=== PATIENT | female | born 1940 | race Caucasian/White ===

== ENCOUNTER 2018-03-16 16:43 | Observation (INO) ==
[2018-03-16 16:50] VITALS: BMI 29.2
[2018-03-16] MEDS ORDERED: NS 1000 ML 1,000 ML ONE ×2 (16:59→18:17)
[2018-03-16] MEDS ORDERED: NS 1000 ML 1,000 ML IV ONE (17:18)
--- NOTE | 2018-03-16 17:22 | DR.EXTPAIN ---
HPI Time seen Time Seen by Provider: 03/16/18 17:10 PCP Primary Care Physician: timothy Complaint/Symptoms Chief Complaint:: patient stated she vomitied about 30 minutes ago and it looked like coffee grounds. family stated it may be blood Source History Provided: Patient Mode of arrival Mode of Arrival: Ambulatory Timing Onset of Chief Complaint: 03/15/18 PMH PMH Past Medical History: Yes Past Medical History: Anxiety, Arthritis, Dyslipidemia and Hypertension Past Surgical History: Yes Surgical History: Bowel Resection, Cholecystectomy, Hysterectomy and Other Family History History of Family Medical Conditions: Yes Family Medical History: Hypertension Social History Does patient currently use any type of tobacco product: No Have you used tobacco products in the last 12 months: No Type of Tobacco Use: None Does any household member use tobacco: No Alcohol Use: None Do you use any recreational Drugs:: No Lives With: Family Lives Where: Home infectious screening In the last 2 months have you had wt loss of >10#?: NO Have you had fever, night sweats or hemotysis?: No Have you traveled outside the country in the last 6 months?: No Isolation: Standard PE Vital Signs Vitals: Temperature 98.4 F Pulse Rate [Brachial] 79 Pulse Rate 137 Respiratory Rate 20 Blood Pressure [Left Arm] 152/89 Blood Pressure [Right Arm] 163/71 Blood Pressure 114/60 O2 Sat by Pulse Oximetry 95 General Limitations: No Limitations General Appearance: Alert and In No Apparent Distress Head Head Exam: Normal Inspection, Atraumatic and Normocephalic Eyes Eye exam: Normal Appearance, PERRL and EOMI ENT ENT Exam: Normal Exam, Normal Oropharynx and Normal External Ear Exam Neck Neck Exam: Normal Inspection and Full ROM Chest Chest Inspection: Normal Inspection and Symmetric Chest Wall Rise Respiratory Respiratory Exam: Normal Lung Sounds Bilat and Accessory Muscle Use Respiratory Exam: Bilateral: Clear to Auscultation Cardiovascular Cardiovascular Exam: Regular Rate and Normal Rhythm Abdominal Exam Abdominal Exam: Normal Inspection, Normal Bowel Sounds and Soft Extremities Extremities Exam: Normal Inspection and Full ROM Upper Extremities Shoulder Exam: Normal Inspection Arm Exam: Normal Inspection and Full ROM Elbow Exam: Normal Inspection and Full ROM Forearm Exam: Normal Inspection and Full ROM Hand Exam: Normal Inspection Neuromotor Exam: Normal Exam Neurosensory Exam: Normal Exam Hand Tendon Exam: Flexor Digitorium Profundus (Location) Lower Extremities Hip/Pelvis Exam: Normal Inspection Upper Leg Exam: Normal Inspection and Full ROM Knee Exam: Normal Inspection Lower Leg Exam: Normal Inspection Ankle Exam: Normal Inspection and Full ROM Foot/Toe Exam: Normal Inspection Neurovascular/Tendon Exam: Normal Capillary Refill Back Back Exam: Normal Inspection and Full ROM Neurological Neurological Exam: Alert, Oriented X3 and CN II-XII Intact Psychiatric Psychiatric Exam: Normal Affect and Normal Mood Skin Skin Exam: Warm, Dry and Intact Type of Lesion: Rash COURSE Treatment Treatment: NS 1 L Consultation Called: 18:30 Consultation Comments: Dr. Zepeda agreed to admit for further evaluation and treatment ROR Labs Reviewed Laboratory Results Reviewed?: Yes Result Diagrams: 03/19/18 05:05 03/19/18 05:05 Laboratory: 03/16/18 17:45 Stool Gram Stain - Final WBC 8.3 X10^3/uL (3.6-10.0) 03/19/18 05:05 RBC 3.57 X10^6/uL (3.5-5.4) 03/19/18 05:05 Hgb 9.7 g/dL (12.0-16.0) L 03/19/18 05:05 Hct 29.1 % (36.0-47.0) L 03/19/18 05:05 MCV 81.7 fL (80.0-100.0) 03/19/18 05:05 MCH 27.1 pg (27.0-34.0) 03/19/18 05:05 MCHC 33.2 g/dL (33.0-35.0) 03/19/18 05:05 RDW 17.3 % (11.6-16.5) H 03/19/18 05:05 Plt Count 277 X10^3/uL (150.0-450.0) 03/19/18 05:05 Plt Count Comment Adequate (ADEQUATE) 03/17/18 05:48 MPV 9.7 fL (7.4-11.0) 03/19/18 05:05 Neut % (Auto) 67.9 % (42.0-75.0) 03/19/18 05:05 Lymph % (Auto) 19.8 % (21.0-51.0) L 03/19/18 05:05 [place] % (Auto) 5.3 % (0.0-13.0) 03/19/18 05:05 Eos % (Auto) 6.3 % (0.9-2.9) H 03/19/18 05:05 Baso % (Auto) 0.7 % (0.2-1.0) 03/19/18 05:05 Neut # (Auto) 5.6 x10^3/uL (2.2-4.8) H 03/19/18 05:05 Lymph # (Auto) 1.6 X10^3/uL (1.3-2.9) 03/19/18 05:05 [place] # (Auto) 0.4 x10^3/uL (0.3-0.8) 03/19/18 05:05 Eos # (Auto) 0.5 x10^3/uL (0.0-0.2) H 03/19/18 05:05 Baso # (Auto) 0.1 X10^3/uL (0.0-0.1) 03/19/18 05:05 Absolute Nucleated RBC 0.0 /100WBC 03/19/18 05:05 Plt Morphology Comment Normal (NORMAL) 03/17/18 05:48 RBC Morphology Abnormal (NORMAL) A 03/17/18 05:48 Hypochromasia 2+ A 03/17/18 05:48 Poikilocytosis Slight A 03/17/18 05:48 Anisocytosis Slight A 03/17/18 05:48 Microcytosis Slight A 03/17/18 05:48 Absolute Retic 0.0627 10^6/uL 03/16/18 17:07 Percent Retic 1.81 % (0.8-2.2) 03/16/18 17:07 Sodium 138 mmol/L (136-145) 03/19/18 05:05 Corrected Sodium 139 mmol/L (136-145) 03/19/18 05:05 Potassium 4.0 mmol/L (3.5-5.1) 03/19/18 05:05 Chloride 103 mmol/L (98-107) 03/19/18 05:05 Carbon Dioxide 26.0 mmol/L (21-32) 03/19/18 05:05 BUN 10 mg/dL (7-18) 03/19/18 05:05 Creatinine 0.47 mg/dL (0.55-1.02) L 03/19/18 05:05 Est GFR (MDRD) Af Amer > 60 (>60) 03/19/18 05:05 Est GFR (MDRD) Non-Af > 60 (>60) 03/19/18 05:05 Glucose 129 mg/dL (65-99) H 03/19/18 05:05 Calcium 8.2 mg/dL (8.5-10.1) L 03/19/18 05:05 Corrected Calcium 8.8 mg/dL (8.5-10.1) 03/19/18 05:05 Iron 14 ug/dL (50-175) L 03/17/18 09:58 TIBC 331 ug/dL (250-450) 03/17/18 05:48 Transferrin 270 mg/dL (202-364) 03/17/18 09:58 Ferritin 19 ng/mL (8-252) 03/17/18 09:58 Total Bilirubin 0.50 mg/dL (0.2-1.0) 03/19/18 05:05 AST 50 Units/L (15-37) H 03/19/18 05:05 ALT 48 Units/L (12-78) 03/19/18 05:05 Alkaline Phosphatase 88 Units/L (46-116) 03/19/18 05:05 Total Protein 7.0 g/dL (6.4-8.2) 03/19/18 05:05 Albumin 3.2 g/dL (3.4-5.0) L 03/19/18 05:05 Globulin 3.8 g/dL (2.5-4.5) 03/19/18 05:05 Albumin/Globulin Ratio 0.8 Ratio (1.1-2.1) L 03/19/18 05:05 Amylase 31 Units/L (25-115) 03/16/18 17:07 Lipase 125 Units/L (73-393) 03/16/18 17:07 Vitamin B12 469 pg/mL (193-986) 03/17/18 09:58 Folate 15.6 ng/mL (>8.6) 03/17/18 09:58 Stool Description Fob 03/16/18 17:37 Stl Occult Blood (IFOB) Negative (NEGATIVE) 03/16/18 17:37 Stool for White Cells Cancelled 03/16/18 17:37 Blood Type O NEGATIVE 03/17/18 09:58 Antibody Screen Negative 03/17/18 09:58 Crossmatch See Detail 03/17/18 09:58 Other Results Comments: Chest: Chronic interstitial lung changes are observed without acute cardiopulmonary disease. A moderate size central sliding hiatal hernia is noted to be present in the retrocardiac region XRAY XRAY Interpreted by: Radiologist Diagnosis Discharge Problem: Azotemia ADDITIONAL NOTES Additional Notes Additional Notes: Patient will be admitted for hydration
[2018-03-16 17:43] LABS: ALANINE AMINOTRANSFERASE 24 Units/L (12-78); ALBUMIN 3.1 g/dL (3.4-5.0); ALKALINE PHOSPHATASE 86 Units/L (46-116); AMYLASE 31 Units/L (25-115); ASPARTATE AMINO TRANSFERASE 19 Units/L (15-37); BLOOD UREA NITROGEN 50 mg/dL (7-18); CALCIUM 8.8 mg/dL (8.5-10.1); CARBON DIOXIDE 27.4 mmol/L (21-32); CHLORIDE 105 mmol/L (98-107); COR CA(FOR HYPOALB) 9.5 mg/dL (8.5-10.1); COR NA(FOR HYPERGLY) 145 mmol/L (136-145); CREATININE 0.78 mg/dL (0.55-1.02); LIPASE 125 Units/L (73-393); SODIUM 141 mmol/L (136-145); eGFR NON BLACK RACES > 60 (>60)
[2018-03-16 17:44] LABS: BASOPHILS # (AUTO) 0.1 X10^3/uL (0.0-0.1); BASOPHILS % (AUTO) 0.7 % (0.2-1.0); EOSINOPHILS # (AUTO) 0.3 x10^3/uL (0.0-0.2); EOSINOPHILS % (AUTO) 2.9 % (0.9-2.9); HEMATOCRIT 27.7 % (36.0-47.0); HEMOGLOBIN 8.8 g/dL (12.0-16.0); LYMPHOCYTES # (AUTO) 1.7 X10^3/uL (1.3-2.9); LYMPHOCYTES % (AUTO) 18.1 % (21.0-51.0); MEAN CORPUSCULAR HEMOGLOBIN 25.3 pg (27.0-34.0); MEAN CORPUSCULAR HGB CONC 31.6 g/dL (33.0-35.0); MEAN PLATELET VOLUME 9.7 fL (7.4-11.0); MONOCYTES # (AUTO) 0.3 x10^3/uL (0.3-0.8); MONOCYTES % (AUTO) 3.8 % (0.0-13.0); NEUTROPHILS # (AUTO) 6.9 x10^3/uL (2.2-4.8); NEUTROPHILS % (AUTO) 74.5 % (42.0-75.0); PLATELET COUNT 438 X10^3/uL (150.0-450.0); RED BLOOD COUNT 3.46 X10^6/uL (3.5-5.4); RED CELL DISTRIBUTION WIDTH 16.9 % (11.6-16.5); RETICULOCYTE % 1.81 % (0.8-2.2); WHITE BLOOD COUNT 9.2 X10^3/uL (3.6-10.0)
[2018-03-16 18:03] LABS: HYPOCHROMASIA SLIGHT; PLATELET MORPHOLOGY COMMENT NORMAL (NORMAL)
--- NOTE | 2018-03-16 18:29 | RAD ---
HISTORY: Tachycardia Study: Single-view chest Comparison: 09/19/2015 Findings: The trachea is midline. The cardiac silhouette is enlarged with a tortuous thoracic aorta. Chronic interstitial lung changes are observed. Density within the retrocardiac region consistent with central sliding hiatal hernia is noted. The bony thorax is unremarkable. IMPRESSION: A moderate size central sliding hiatal hernia is noted to be present in the retrocardiac region. Chronic interstitial lung changes are observed without acute cardiopulmonary disease. Reported By:
[2018-03-16] MEDS ORDERED: PHENERGAN INJ 25 MG IVP ONE (19:22)
[2018-03-16] MEDS ORDERED: PHENERGAN INJ 25 MG ONE (19:24)
[2018-03-16] MEDS ORDERED: ZOFRAN INJ 4 MG VIAL IVP PRN ×2 (19:29→19:50)
[2018-03-16] MEDS ORDERED: PLAQUENIL PO SCH (21:00)
[2018-03-16] MEDS ORDERED: HYDROXYCHLOROQUINE SULFATE 200 MG PO SCH (21:00)
[2018-03-16 21:41] LABS: ALANINE AMINOTRANSFERASE 23 Units/L (12-78); ALBUMIN 2.8 g/dL (3.4-5.0); ALKALINE PHOSPHATASE 73 Units/L (46-116); ASPARTATE AMINO TRANSFERASE 19 Units/L (15-37); BLOOD UREA NITROGEN 52 mg/dL (7-18); CALCIUM 8.4 mg/dL (8.5-10.1); CHLORIDE 109 mmol/L (98-107); COR CA(FOR HYPOALB) 9.4 mg/dL (8.5-10.1); COR NA(FOR HYPERGLY) 145 mmol/L (136-145); CREATININE 0.68 mg/dL (0.55-1.02); SODIUM 144 mmol/L (136-145); TOTAL PROTEIN 6.3 g/dL (6.4-8.2); eGFR NON BLACK RACES > 60 (>60)
[2018-03-16] MEDS ORDERED: VISTARIL PO PRN (21:53)
[2018-03-16] MEDS: ZANTAC PO SCH (21:58)
[2018-03-16] MEDS: TOPROL XL PO SCH (21:58)
[2018-03-16] MEDS: NS 1000 ML 1,000 ML IV SCH (22:34)
[2018-03-16] MEDS: ZOLOFT PO SCH (22:34)
[2018-03-17] MEDS: NS 1000 ML 1,000 ML IV SCH ×4 (04:33→23:28)
[2018-03-17 07:18] LABS: BASOPHILS % (AUTO) 0.7 % (0.2-1.0); EOSINOPHILS # (AUTO) 0.1 x10^3/uL (0.0-0.2); EOSINOPHILS % (AUTO) 1.3 % (0.9-2.9); LYMPHOCYTES # (AUTO) 1.7 X10^3/uL (1.3-2.9); LYMPHOCYTES % (AUTO) 23.7 % (21.0-51.0); MEAN CORPUSCULAR HEMOGLOBIN 25.6 pg (27.0-34.0); MEAN CORPUSCULAR VOLUME 80.1 fL (80.0-100.0); MEAN PLATELET VOLUME 9.7 fL (7.4-11.0); MONOCYTES # (AUTO) 0.6 x10^3/uL (0.3-0.8); MONOCYTES % (AUTO) 7.9 % (0.0-13.0); NEUTROPHILS # (AUTO) 4.7 x10^3/uL (2.2-4.8); NEUTROPHILS % (AUTO) 66.4 % (42.0-75.0); PLATELET COUNT 263 X10^3/uL (150.0-450.0); RED BLOOD COUNT 2.48 X10^6/uL (3.5-5.4); RED CELL DISTRIBUTION WIDTH 16.7 % (11.6-16.5); WHITE BLOOD COUNT 7.1 X10^3/uL (3.6-10.0)
[2018-03-17 08:02] LABS: HEMATOCRIT 19.8 % (36.0-47.0); HEMOGLOBIN 6.4 g/dL (12.0-16.0)
[2018-03-17] MEDS: TOPROL XL PO SCH ×2 (08:44→21:27)
[2018-03-17] MEDS: ZANTAC PO SCH ×2 (08:44→21:26)
[2018-03-17] MEDS: MAG-OX TAB PO SCH (08:45)
[2018-03-17] MEDS: VITAMIN D3 PO SCH (08:45)
[2018-03-17] MEDS ORDERED: MAGNESIUM PO SCH (09:00)
[2018-03-17] MEDS ORDERED: ECOTRIN TAB 325 MG PO SCH (09:00)
[2018-03-17] MEDS ORDERED: CHOLECALCIFEROL 2000 UNIT PO SCH (09:00)
[2018-03-17] MEDS ORDERED: PLAVIX PO SCH (09:00)
[2018-03-17 09:03] LABS: PLATELET MORPHOLOGY COMMENT NORMAL (NORMAL)
[2018-03-17 09:04] LABS: ANISOCYTOSIS SLIGHT; HYPOCHROMASIA 2+; MICROCYTOSIS SLIGHT; POIKILOCYTOSIS SLIGHT
[2018-03-17] MEDS ORDERED: NS 500 ML IV 500 ML IV ONE (09:44)
--- NOTE | 2018-03-17 09:50 | DR.H&P ---
H&P - History & Physical for Day of: H&P Date: 03/16/18 - Chief Complaint Chief Complaint: N/V, WEAKNESS - History of Present Illness History of Present Illness: 77 WF ER ADMISSION AFTER PRESENTING WITH CO INCREASED WEAKNESS AND "GIVING OUT EASILY" PT CO N/V WITH "COFFEE GROUND" EMESIS. PT HAS PMH OF CAD, OA WITH THERMAL MOLDER NSAID USE, LUPUS, HTN AND HX CVA. PT ADMITTED FOR EVALUATION OF ACUTE ILLNESS. - Past Medical History Past Medical History: Hypertension, Dyslipidemia, Anxiety, Arthritis Additional Medical History: Diverticulosis, Muscle Weakness - Past Surgical History Surgical History: Bowel Resection, Cholecystectomy, Hysterectomy, Other Additional Surgical History: Heart Cath, Tubal Ligation, Breast Biopsies, Lumpectomy - Family History Family Medical History: Hypertension - Social History Does patient currently use any type of tobacco product: No Have you used tobacco products in the last 12 months: No Type of Tobacco Use: None Does any household member use tobacco: No Alcohol Use: None Drug Use: None - Medications Home Medications: codeine Allergy (Verified 03/16/18 16:45) levofloxacin [From Levaquin] Allergy (Verified 03/16/18 16:45) Sulfa (Sulfonamide Antibiotics) [SULFA] Allergy (Verified 03/16/18 16:45) CONTINUE taking the following medications metoprolol succinate 37.5 mg PO BID 03/16/18 [History] - Review of Systems Constitutional: Weakness Eyes: No Symptoms Reported ENT: No Symptoms Reported Respiratory: Shortness of Breath Cardiovascular: Palpitations Gastrointestinal: Nausea, Vomiting Genitourinary: No Symptoms Reported Musculoskeletal: No Symptoms Reported Skin: No Symptoms Reported Neurological: Weakness - Physical Exam Vital Signs: Temperature 98.5 F Pulse Rate [Brachial] 105 Pulse Rate 137 Respiratory Rate 22 Blood Pressure [Left Arm] 152/89 Blood Pressure [Right Arm] 151/80 Blood Pressure 114/60 O2 Sat by Pulse Oximetry 98 Oriented: Normal Eyes: Normal Ear: Normal Nose: Normal Throat: Normal Respiratory: RLL Diminished, LLL Diminished Cardiovascular: Murmur : Normal Auscultation: Bowel Sounds: Normal Palpation: Normal Tenderness: Normal Skin: Decreased Turgur, Other (GENERALIZED PALLOR) Musculoskeletal: Right, Left, Knee, Back:Lumbar, Tender Psychiatric: Anxiety Affect: Angry Speech Pattern: Clear, Appropriate - Assessment/Plan (1) Nausea & vomiting Status: Acute Plan: ADMIT, NAUSEA CONTROL, NPO. GENTLE IV HYDRATION, REPEAT AM LABS. IV PROTONIX, GASTRO AND OCCULT STOOL (2) Upper GI bleed Status: Acute (3) Weakness Status: Acute (4) Essential hypertension Status: Chronic (5) Hypothyroidism Status: Chronic (6) History of CVA (cerebrovascular accident) Status: Chronic - Allergies Allergies/Adverse Reactions: Allergies Allergy/AdvReac Type Severity Reaction Status Date / Time codeine Allergy Verified 03/16/18 16:45 levofloxacin [From Levaquin] Allergy Verified 03/16/18 16:45 Sulfa (Sulfonamide Allergy Verified 03/16/18 16:45 Antibiotics) [SULFA]
[2018-03-17] MEDS: PROTONIX INJ 40 MG VIAL IVP SCH ×2 (11:14→23:07)
[2018-03-17] MEDS: ASPIRIN EC 81 MG PO SCH (11:14)
[2018-03-17] MEDS ORDERED: LASIX IVP SCH (13:00)
[2018-03-17] MEDS: SYNTHROID 25 mcg TAB PO SCH (16:31)
[2018-03-17] MEDS ORDERED: TYLENOL 325 MG TAB PO ONE ×2 (16:56→17:45)
[2018-03-17] MEDS ORDERED: BENADRYL INJ 50 MG VIAL IVP ONE (16:56)
[2018-03-17] MEDS ORDERED: BENADRYL INJ 50 MG VIAL ONE (17:44)
[2018-03-17] MEDS: ZOLOFT PO SCH (21:26)
[2018-03-18] MEDS: NS 1000 ML 1,000 ML IV SCH ×3 (05:22→20:39)
[2018-03-18 08:16] LABS: BASOPHILS # (AUTO) 0.1 X10^3/uL (0.0-0.1); BASOPHILS % (AUTO) 0.8 % (0.2-1.0); EOSINOPHILS # (AUTO) 0.6 x10^3/uL (0.0-0.2); EOSINOPHILS % (AUTO) 7.4 % (0.9-2.9); HEMATOCRIT 29.5 % (36.0-47.0); HEMOGLOBIN 9.7 g/dL (12.0-16.0); LYMPHOCYTES # (AUTO) 2.5 X10^3/uL (1.3-2.9); LYMPHOCYTES % (AUTO) 29.3 % (21.0-51.0); MEAN CORPUSCULAR HEMOGLOBIN 26.9 pg (27.0-34.0); MEAN CORPUSCULAR HGB CONC 32.9 g/dL (33.0-35.0); MEAN CORPUSCULAR VOLUME 81.9 fL (80.0-100.0); MEAN PLATELET VOLUME 9.3 fL (7.4-11.0); MONOCYTES # (AUTO) 0.5 x10^3/uL (0.3-0.8); MONOCYTES % (AUTO) 6.1 % (0.0-13.0); NEUTROPHILS # (AUTO) 4.7 x10^3/uL (2.2-4.8); NEUTROPHILS % (AUTO) 56.4 % (42.0-75.0); PLATELET COUNT 289 X10^3/uL (150.0-450.0); WHITE BLOOD COUNT 8.4 X10^3/uL (3.6-10.0)
[2018-03-18 08:28] LABS: ALANINE AMINOTRANSFERASE 32 Units/L (12-78); ALBUMIN 3.4 g/dL (3.4-5.0); ALKALINE PHOSPHATASE 79 Units/L (46-116); ASPARTATE AMINO TRANSFERASE 40 Units/L (15-37); BLOOD UREA NITROGEN 14 mg/dL (7-18); CALCIUM 8.2 mg/dL (8.5-10.1); CARBON DIOXIDE 26.3 mmol/L (21-32); CHLORIDE 106 mmol/L (98-107); COR NA(FOR HYPERGLY) 141 mmol/L (136-145); SODIUM 141 mmol/L (136-145); TOTAL PROTEIN 7.1 g/dL (6.4-8.2); eGFR NON BLACK RACES > 60 (>60)
[2018-03-18] MEDS: TOPROL XL PO SCH ×2 (08:44→20:38)
[2018-03-18] MEDS: VITAMIN D3 PO SCH (08:44)
[2018-03-18] MEDS: ASPIRIN EC 81 MG PO SCH (08:45)
[2018-03-18] MEDS: MAG-OX TAB PO SCH (08:45)
[2018-03-18] MEDS: PROTONIX INJ 40 MG VIAL IVP SCH ×2 (08:45→20:38)
[2018-03-18] MEDS: ZANTAC PO SCH ×2 (08:45→20:39)
[2018-03-18] MEDS ORDERED: NS 100 ML IV 100 ML with VENOFER 400 MG IV NR ×2 (13:00)
[2018-03-18] MEDS: SYNTHROID 25 mcg TAB PO SCH (16:13)
[2018-03-18] MEDS: TYLENOL 325 MG TAB PO PRN (16:33)
[2018-03-18] MEDS: ZOLOFT PO SCH (20:39)
[2018-03-19] MEDS: NS 1000 ML 1,000 ML IV SCH ×4 (05:36→21:23)
[2018-03-19 05:57] LABS: BASOPHILS # (AUTO) 0.1 X10^3/uL (0.0-0.1); BASOPHILS % (AUTO) 0.7 % (0.2-1.0); EOSINOPHILS # (AUTO) 0.5 x10^3/uL (0.0-0.2); EOSINOPHILS % (AUTO) 6.3 % (0.9-2.9); HEMATOCRIT 29.1 % (36.0-47.0); HEMOGLOBIN 9.7 g/dL (12.0-16.0); LYMPHOCYTES # (AUTO) 1.6 X10^3/uL (1.3-2.9); LYMPHOCYTES % (AUTO) 19.8 % (21.0-51.0); MEAN CORPUSCULAR HEMOGLOBIN 27.1 pg (27.0-34.0); MEAN CORPUSCULAR HGB CONC 33.2 g/dL (33.0-35.0); MEAN CORPUSCULAR VOLUME 81.7 fL (80.0-100.0); MEAN PLATELET VOLUME 9.7 fL (7.4-11.0); MONOCYTES # (AUTO) 0.4 x10^3/uL (0.3-0.8); MONOCYTES % (AUTO) 5.3 % (0.0-13.0); NEUTROPHILS # (AUTO) 5.6 x10^3/uL (2.2-4.8); NEUTROPHILS % (AUTO) 67.9 % (42.0-75.0); PLATELET COUNT 277 X10^3/uL (150.0-450.0); RED BLOOD COUNT 3.57 X10^6/uL (3.5-5.4); RED CELL DISTRIBUTION WIDTH 17.3 % (11.6-16.5); WHITE BLOOD COUNT 8.3 X10^3/uL (3.6-10.0)
[2018-03-19 06:17] LABS: ALANINE AMINOTRANSFERASE 48 Units/L (12-78); ALBUMIN 3.2 g/dL (3.4-5.0); ALKALINE PHOSPHATASE 88 Units/L (46-116); ASPARTATE AMINO TRANSFERASE 50 Units/L (15-37); BLOOD UREA NITROGEN 10 mg/dL (7-18); CALCIUM 8.2 mg/dL (8.5-10.1); CHLORIDE 103 mmol/L (98-107); COR CA(FOR HYPOALB) 8.8 mg/dL (8.5-10.1); COR NA(FOR HYPERGLY) 139 mmol/L (136-145); CREATININE 0.47 mg/dL (0.55-1.02); SODIUM 138 mmol/L (136-145); eGFR NON BLACK RACES > 60 (>60)
[2018-03-19] MEDS ORDERED: PHARMACY CONSULT - DOSE _____ XX SCH (07:00)
[2018-03-19] MEDS: TOPROL XL PO SCH ×2 (08:43→20:28)
[2018-03-19] MEDS: ASPIRIN EC 81 MG PO SCH (08:43)
[2018-03-19] MEDS: PROTONIX INJ 40 MG VIAL IVP SCH ×2 (08:43→20:28)
[2018-03-19] MEDS: ZANTAC PO SCH ×2 (08:44→20:28)
[2018-03-19] MEDS: MAG-OX TAB PO SCH (08:44)
[2018-03-19] MEDS: VITAMIN D3 PO SCH (08:45)
--- NOTE | 2018-03-19 11:22 | PCM.PROG ---
Progress Note - Progress Note for Day of Date of Exam: 03/19/18 - Subjective Subjective: IS A 77 YEAR OLD PATIENT OF OURS WHO WAS ADMITTED WITH DEHYDRATION, AZOTEMIA, AND ANEMIA. SHE RECEIVED TWO UNITS OF PACKED RED BLOOD CELLS YESTERDAY. SHE REPORTED COFFEE GROUND EMESIS PRIOR TO ADMISSION. TODAY, SHE IS ALERT AND ORIENTED, SITTING UP IN BED ON MORNING ROUNDS. SHE CONTINUES WITH COMPLAINTS OF GENERALIZED WEAKNESS AND NAUSEA. ON EXAMINATION, HEART IS REGULAR IN RATE AND RHYTHM. BILATERAL LUNGS ARE NOTED WITH DIMINISHED LUNG SOUNDS THROUGHOUT. ABDOMEN IS ROUND, SOFT, AND NOTED WITH MILD, DIFFUSE TENDERNESS TO PALPATION. HER VITALS THIS MORNING ARE 98.4-86-18-97%-160/91. LABS WERE OBTAINED. ABNORMAL LAB VALUES INCLUDE THE FOLLOWING: HGB 9.7, HCT 29.1, CREATININE 0.47, GLUOCSE 129, CALCIUM 8.2, AST 50, ALBUMIN 3.2. WAS CONSULTED AND WILL SEE PATIENT TODAY. OTHERWISE, WE WILL CONTINUE WITH IV HYDRATION AND CURRENT PLAN OF CARE. WE WILL FOLLOW UP WITH AM LABS AND CONTINUE TO MONITOR. - Past Medical Family Social History Past Med/Fam/Surg Hx: No changes since H&P Allergies: Allergies codeine Allergy (Verified 03/16/18 16:45) levofloxacin [From Levaquin] Allergy (Verified 03/16/18 16:45) Sulfa (Sulfonamide Antibiotics) [SULFA] Allergy (Verified 03/16/18 16:45) - Review of Systems ROS: No change since H&P - Vital Signs and I&O's Vital Signs: Temperature 98.4 F Pulse Rate [Brachial] 86 Pulse Rate 137 Respiratory Rate 18 Blood Pressure [Left Arm] 152/89 Blood Pressure [Right Arm] 160/91 Blood Pressure 114/60 O2 Sat by Pulse Oximetry 97 Intake and Output: Intake & Output 03/16/18 03/17/18 03/18/18 03/19/18 11:59 11:59 11:59 11:59 Intake Total 1600 / 1600 1800 / 1800 2340 / 2340 Balance 1600 / 1600 1800 / 1800 2340 / 2340 - Physical Exam Oriented: Normal Eyes: Normal Ear: Normal Nose: Normal Throat: Normal Respiratory: Diminished Cardiovascular: Murmur : Normal Auscultation: Bowel Sounds: Normal Tenderness: Diffuse, Mild. negative: Rebound, Guarding, Rigidity Skin: Decreased Turgur, Other (GENERALIZED PALLOR) Musculoskeletal: Right, Left, Knee, Back:Lumbar, Tender Psychiatric: Anxiety Affect: Angry Speech Pattern: Clear, Appropriate - Laboratory and Diagnostics Result Diagrams: 03/19/18 05:05 03/19/18 05:05 Labs: 03/16/18 17:45 Stool Gram Stain - Final Laboratory WBC 8.3 X10^3/uL (3.6-10.0) 03/19/18 05:05 RBC 3.57 X10^6/uL (3.5-5.4) 03/19/18 05:05 Hgb 9.7 g/dL (12.0-16.0) L 03/19/18 05:05 Hct 29.1 % (36.0-47.0) L 03/19/18 05:05 MCV 81.7 fL (80.0-100.0) 03/19/18 05:05 MCH 27.1 pg (27.0-34.0) 03/19/18 05:05 MCHC 33.2 g/dL (33.0-35.0) 03/19/18 05:05 RDW 17.3 % (11.6-16.5) H 03/19/18 05:05 Plt Count 277 X10^3/uL (150.0-450.0) 03/19/18 05:05 Plt Count Comment Adequate (ADEQUATE) 03/17/18 05:48 MPV 9.7 fL (7.4-11.0) 03/19/18 05:05 Neut % (Auto) 67.9 % (42.0-75.0) 03/19/18 05:05 Lymph % (Auto) 19.8 % (21.0-51.0) L 03/19/18 05:05 [place] % (Auto) 5.3 % (0.0-13.0) 03/19/18 05:05 Eos % (Auto) 6.3 % (0.9-2.9) H 03/19/18 05:05 Baso % (Auto) 0.7 % (0.2-1.0) 03/19/18 05:05 Neut # (Auto) 5.6 x10^3/uL (2.2-4.8) H 03/19/18 05:05 Lymph # (Auto) 1.6 X10^3/uL (1.3-2.9) 03/19/18 05:05 [place] # (Auto) 0.4 x10^3/uL (0.3-0.8) 03/19/18 05:05 Eos # (Auto) 0.5 x10^3/uL (0.0-0.2) H 03/19/18 05:05 Baso # (Auto) 0.1 X10^3/uL (0.0-0.1) 03/19/18 05:05 Absolute Nucleated RBC 0.0 /100WBC 03/19/18 05:05 Plt Morphology Comment Normal (NORMAL) 03/17/18 05:48 RBC Morphology Abnormal (NORMAL) A 03/17/18 05:48 Hypochromasia 2+ A 03/17/18 05:48 Poikilocytosis Slight A 03/17/18 05:48 Anisocytosis Slight A 03/17/18 05:48 Microcytosis Slight A 03/17/18 05:48 Absolute Retic 0.0627 10^6/uL 03/16/18 17:07 Percent Retic 1.81 % (0.8-2.2) 03/16/18 17:07 Sodium 138 mmol/L (136-145) 03/19/18 05:05 Corrected Sodium 139 mmol/L (136-145) 03/19/18 05:05 Potassium 4.0 mmol/L (3.5-5.1) 03/19/18 05:05 Chloride 103 mmol/L (98-107) 03/19/18 05:05 Carbon Dioxide 26.0 mmol/L (21-32) 03/19/18 05:05 BUN 10 mg/dL (7-18) 03/19/18 05:05 Creatinine 0.47 mg/dL (0.55-1.02) L 03/19/18 05:05 Est GFR (MDRD) Af Amer > 60 (>60) 03/19/18 05:05 Est GFR (MDRD) Non-Af > 60 (>60) 03/19/18 05:05 Glucose 129 mg/dL (65-99) H 03/19/18 05:05 Calcium 8.2 mg/dL (8.5-10.1) L 03/19/18 05:05 Corrected Calcium 8.8 mg/dL (8.5-10.1) 03/19/18 05:05 Iron 14 ug/dL (50-175) L 03/17/18 09:58 TIBC 331 ug/dL (250-450) 03/17/18 05:48 Transferrin 270 mg/dL (202-364) 03/17/18 09:58 Ferritin 19 ng/mL (8-252) 03/17/18 09:58 Total Bilirubin 0.50 mg/dL (0.2-1.0) 03/19/18 05:05 AST 50 Units/L (15-37) H 03/19/18 05:05 ALT 48 Units/L (12-78) 03/19/18 05:05 Alkaline Phosphatase 88 Units/L (46-116) 03/19/18 05:05 Total Protein 7.0 g/dL (6.4-8.2) 03/19/18 05:05 Albumin 3.2 g/dL (3.4-5.0) L 03/19/18 05:05 Globulin 3.8 g/dL (2.5-4.5) 03/19/18 05:05 Albumin/Globulin Ratio 0.8 Ratio (1.1-2.1) L 03/19/18 05:05 Amylase 31 Units/L (25-115) 03/16/18 17:07 Lipase 125 Units/L (73-393) 03/16/18 17:07 Vitamin B12 469 pg/mL (193-986) 03/17/18 09:58 Folate 15.6 ng/mL (>8.6) 03/17/18 09:58 Stool Description Fob 03/16/18 17:37 Stl Occult Blood (IFOB) Negative (NEGATIVE) 03/16/18 17:37 Stool for White Cells Cancelled 03/16/18 17:37 Blood Type O NEGATIVE 03/17/18 09:58 Antibody Screen Negative 03/17/18 09:58 Crossmatch See Detail 03/17/18 09:58 - Plan (1) Nausea & vomiting Status: Acute Plan: NAUSEA CONTROL, GENTLE IV HYDRATION, REPEAT AM LABS. IV PROTONIX, GASTRO AND OCCULT STOOL (2) Upper GI bleed Status: Acute Plan: CONSULT GASTROENTEROLOGY (3) Weakness Status: Acute (4) Essential hypertension Status: Chronic Plan: CONTINUE HOME MEDS (5) Hypothyroidism Status: Chronic Qualifiers: Hypothyroidism type: acquired Qualified Code(s): E03.9 - Hypothyroidism, unspecified (6) Hyperlipidemia Status: Chronic Qualifiers: Hyperlipidemia type: mixed hyperlipidemia Qualified Code(s): E78.2 - Mixed hyperlipidemia (7) History of CVA (cerebrovascular accident) Status: Chronic
[2018-03-19] MEDS: TYLENOL 325 MG TAB PO PRN (14:13)
[2018-03-19] MEDS: SYNTHROID 25 mcg TAB PO SCH (15:53)
--- NOTE | 2018-03-19 17:48 | DR.CONSULT ---
Consult - Consultation for Day of: Date: 03/19/18 - Chief Complaint Chief Complaint: Patient referred for anemia and coffee ground emesis. Patient with complaints of dysphagia, nausea and vomiting. - History of Present Illness History of Present Illness: Patient is a 77yo female who was referred for anemia and coffee ground emesis. Patient with complaints of dysphagia, dyspepsia, nausea, vomiting with coffee ground emesis on Monday and melena. Patient denies abdominal pain, constipation, diarrhea and hematochezia. Last EGD was 02/28/2013 which showed Hiatal Hernia, Distal esophagitis with esophageal spasm and mild gastritis. Last Colon was 03/2012. Hgb 9.7 up from 6.4 after 2 units of PRBC, Hct 29.1 up from 19.8, BUN 10, Creatinine 0.47. Hemoccult Negative. - Past Medical History Past Medical History: Hypertension, Dyslipidemia, Anxiety, Arthritis Additional Medical History: Diverticulosis, Muscle Weakness - Past Surgical History Surgical History: Bowel Resection, Cholecystectomy, Hysterectomy, Joint Replacement (Left Knee), Other Additional Surgical History: Heart Cath, Tubal Ligation, Breast Biopsies, Lumpectomy - Family History Family Medical History: Hypertension - Social History Does patient currently use any type of tobacco product: No Have you used tobacco products in the last 12 months: No Type of Tobacco Use: None Does any household member use tobacco: No Alcohol Use: None Drug Use: None - Medications Home Medications: codeine Allergy (Verified 03/16/18 16:45) levofloxacin [From Levaquin] Allergy (Verified 03/16/18 16:45) Sulfa (Sulfonamide Antibiotics) [SULFA] Allergy (Verified 03/16/18 16:45) CONTINUE taking the following medications metoprolol succinate 37.5 mg PO BID 03/16/18 [History] - Review of Systems Gastrointestinal: See HPI, Nausea, Vomiting, Melena. denies: Abdominal Pain, Diarrhea, Constipation, Hematochezia, Other - Physical Exam Vital Signs: Temperature 98 F Pulse Rate [Brachial] 94 Pulse Rate 137 Respiratory Rate 18 Blood Pressure [Left Arm] 152/89 Blood Pressure [Right Arm] 162/82 Blood Pressure 114/60 O2 Sat by Pulse Oximetry 97 Oriented: Normal Eyes: Normal Ear: Normal Nose: Normal Throat: Normal Respiratory: Clear Throughout Cardiovascular: Normal : Normal Auscultation: Bowel Sounds: Normal Palpation: Normal, Other (no distention). negative: Spleen Enlarged, Liver Enlarged, Mass Pulsatile Tenderness: Normal (non tender) Skin: Normal Musculoskeletal: Normal Psychiatric: Normal Mood Description: Calm Affect: Normal Speech Pattern: Clear, Appropriate - Plan Plan: Assessment. 1. Anemia, Coffee Ground Emesis r/o gastric ulcer, gastric adenocarcinoma. Plan. 1. Monitor Hgb, Transfuse as needed, Cont Protonix IV, EGD tomorrow. Plan reviewed with Dr. Cheema - Allergies Allergies/Adverse Reactions: Allergies Allergy/AdvReac Type Severity Reaction Status Date / Time codeine Allergy Verified 03/16/18 16:45 levofloxacin [From Levaquin] Allergy Verified 03/16/18 16:45 Sulfa (Sulfonamide Allergy Verified 03/16/18 16:45 Antibiotics) [SULFA]
[2018-03-19] MEDS: ZOLOFT PO SCH (20:28)
[2018-03-19] MEDS ORDERED: COLACE CAP 100 MG PO SCH (21:00)
[2018-03-19] MEDS ORDERED: MILK OF MAGNESIA PO SCH (21:00)
[2018-03-20] MEDS: NS 1000 ML 1,000 ML IV SCH ×2 (04:18→15:17)
[2018-03-20 06:08] LABS: BASOPHILS % (AUTO) 0.5 % (0.2-1.0); EOSINOPHILS # (AUTO) 0.5 x10^3/uL (0.0-0.2); EOSINOPHILS % (AUTO) 7.4 % (0.9-2.9); HEMOGLOBIN 9.2 g/dL (12.0-16.0); LYMPHOCYTES # (AUTO) 1.1 X10^3/uL (1.3-2.9); LYMPHOCYTES % (AUTO) 18.5 % (21.0-51.0); MEAN CORPUSCULAR HEMOGLOBIN 26.8 pg (27.0-34.0); MEAN CORPUSCULAR HGB CONC 32.8 g/dL (33.0-35.0); MEAN CORPUSCULAR VOLUME 81.7 fL (80.0-100.0); MEAN PLATELET VOLUME 9.7 fL (7.4-11.0); MONOCYTES # (AUTO) 0.4 x10^3/uL (0.3-0.8); MONOCYTES % (AUTO) 6.9 % (0.0-13.0); NEUTROPHILS # (AUTO) 4.1 x10^3/uL (2.2-4.8); NEUTROPHILS % (AUTO) 66.7 % (42.0-75.0); PLATELET COUNT 249 X10^3/uL (150.0-450.0); RED BLOOD COUNT 3.43 X10^6/uL (3.5-5.4); RED CELL DISTRIBUTION WIDTH 17.1 % (11.6-16.5); WHITE BLOOD COUNT 6.1 X10^3/uL (3.6-10.0)
[2018-03-20 06:10] LABS: ALANINE AMINOTRANSFERASE 37 Units/L (12-78); ALBUMIN 2.9 g/dL (3.4-5.0); ALKALINE PHOSPHATASE 80 Units/L (46-116); ASPARTATE AMINO TRANSFERASE 32 Units/L (15-37); BLOOD UREA NITROGEN 7 mg/dL (7-18); CALCIUM 7.9 mg/dL (8.5-10.1); CARBON DIOXIDE 29.4 mmol/L (21-32); CHLORIDE 102 mmol/L (98-107); COR CA(FOR HYPOALB) 8.8 mg/dL (8.5-10.1); COR NA(FOR HYPERGLY) 140 mmol/L (136-145); CREATININE 0.51 mg/dL (0.55-1.02); SODIUM 140 mmol/L (136-145); TOTAL PROTEIN 6.8 g/dL (6.4-8.2); eGFR NON BLACK RACES > 60 (>60)
[2018-03-20] MEDS ORDERED: POTASSIUM CHL 40 MEQ/NS 0.45% 500 ML IV PRN (06:15)
[2018-03-20] MEDS ORDERED: POTASSIUM CHL 60 MEQ/NS 0.45% 500 ML IV PRN (06:15)
[2018-03-20] MEDS ORDERED: MAGNESIUM SULFATE 1 GRAM/100 mL PREMIX 1 GM/100 ML BAG IV PRN (06:15)
[2018-03-20] MEDS ORDERED: KLOR-CON PO PRN (06:15)
[2018-03-20] MEDS ORDERED: POTASSIUM CHLORIDE LIQ 20 MEQ UDC PO PRN (06:15)
[2018-03-20] MEDS ORDERED: K-DUR TAB 20 MEQ PO PRN (06:15)
[2018-03-20] MEDS ORDERED: K-RIDER 10 MEQ/NS 100 ML 10 MEQ/100 ML BAG IV PRN (06:15)
[2018-03-20] MEDS ORDERED: MICRO K EXTEN CAP 10 MEQ PO PRN (06:15)
[2018-03-20 13:16] VITALS: BP 176/82
[2018-03-20] MEDS ORDERED: LR 1000 ML IV 1,000 ML IV ONE (14:33)
[2018-03-20] MEDS ORDERED: DIPRIVAN VIAL 20 ML ONE (14:39)
[2018-03-20] MEDS: PROTONIX INJ 40 MG VIAL IVP SCH (15:16)
[2018-03-20] MEDS: TOPROL XL PO SCH (15:16)
[2018-03-20] MEDS: VITAMIN D3 PO SCH (15:16)
[2018-03-20] MEDS: MAG-OX TAB PO SCH (15:16)
[2018-03-20] MEDS: ASPIRIN EC 81 MG PO SCH (15:16)
[2018-03-20] MEDS: ZANTAC PO SCH (15:17)
== END 2018-03-20 16:25 | disposition home or self-care (01) ==
LOC: ER 16:44 → MED/SURG 16:44
PROVIDERS: ADMIT Internal Medicine; ATTEND Internal Medicine
DX: Z66 Do not resuscitate; R53.1 Weakness; I10 Essential (primary) hypertension; E03.8 Other specified hypothyroidism; R79.89 Other specified abnormal findings of blood chemistry; Z86.73 Personal history of transient ischemic attack (TIA), and cerebral infarction without residual deficits; R13.11 Dysphagia, oral phase; K21.9 Gastro-esophageal reflux disease without esophagitis; D64.89 Other specified anemias; K44.9 Diaphragmatic hernia without obstruction or gangrene; R26.89 Other abnormalities of gait and mobility; E86.0 Dehydration; F41.8 Other specified anxiety disorders; E78.2 Mixed hyperlipidemia; K22.2 Esophageal obstruction; I50.9 Heart failure, unspecified; R11.2 Nausea with vomiting, unspecified; M19.90 Unspecified osteoarthritis, unspecified site; K92.2 Gastrointestinal hemorrhage, unspecified; M32.9 Systemic lupus erythematosus, unspecified
CPT/HCPCS: 36415; 36430; 71010; 71045; 80053; 82150; 82270; 82607; 82728; 82746; 83540; 83550; 83690; 83735; 84132; 84466; 85025; 85045; 86850; 86900; 86901; 86922; 87205; 88305; 88341; 93005; 94760; 96365; 96367; 96374; 97161; 99100; 99218; 99284; A4216; A4222; C9113; P9016; G0378; J1200; J1756; J2550; J2704; J3490; J7030; J7050; J7120

== ENCOUNTER 2019-01-04 14:49 | Observation (INO) ==
--- NOTE | 2019-01-04 15:14 | DR.AMS ---
HPI Time Seen Time Seen by Provider: 01/04/19 15:05 PCP Primary Care Physician: ART Complaint Cheif Complaint Doctors Comments: DISORIENTED SINCE 10:00AM TODAY. Chief Complaint:: PTS DAUGHTER STATES IS A LITTLE DISORIENTED, AND PT STATES SHE KNOWS SOMETHING IS GOING ON SHE JUST CAN'T GET HER WORDS OUT. Source History Provided: Patient Mode of Arrival Mode of Arrival: Ambulatory Timing Onset of Chief Complaint: 01/04/19 PMH PMH Past Medical History: Yes Past Medical History: Anxiety, Arthritis, CVA, Dyslipidemia and Hypertension Past Medical History Comment: JOSAFAT CERNA Past Surgical History: Yes Surgical History: Bowel Resection, Cholecystectomy, Hysterectomy, Joint Replacement and Other Past Surgical History Comment: BLEEDING ULCER Family History History of Family Medical Conditions: Yes Family Medical History: Hypertension Social History Does patient currently use any type of tobacco product: No Have you used tobacco products in the last 12 months: No Type of Tobacco Use: None Alcohol Use: None Do you use any recreational Drugs:: No Lives With: Alone Lives Where: Home infectious screening In the last 2 months have you had wt loss of >10#?: NO Have you had fever, night sweats or hemotysis?: No Have you traveled outside the country in the last 6 months?: No Isolation: Standard PE Vitals Vital Signs: Temp Pulse Resp BP BP BP Pulse Ox 01/04/19 14:51 98.2 F 105 H 20 134/85 95 07/19/18 12:35 108/66 03/20/18 12:00 176/82 06/10/15 04:00 152/89 ROR Labs Reviewed Result Diagrams: 01/04/19 15:41 01/04/19 15:41 Laboratory: WBC 5.2 X10^3/uL (3.6-10.0) 01/04/19 15:41 RBC 4.47 X10^6/uL (3.5-5.4) 01/04/19 15:41 Hgb 12.9 g/dL (12.0-16.0) 01/04/19 15:41 Hct 38.2 % (36.0-47.0) 01/04/19 15:41 MCV 85.6 fL (80.0-100.0) 01/04/19 15:41 MCH 28.8 pg (27.0-34.0) 01/04/19 15:41 MCHC 33.7 g/dL (33.0-35.0) 01/04/19 15:41 RDW 13.7 % (11.6-16.5) 01/04/19 15:41 Plt Count 224 X10^3/uL (150.0-450.0) 01/04/19 15:41 MPV 8.7 fL (7.4-11.0) 01/04/19 15:41 Neut % (Auto) 68.2 % (42.0-75.0) 01/04/19 15:41 Lymph % (Auto) 20.9 % (21.0-51.0) L 01/04/19 15:41 [place] % (Auto) 6.0 % (0.0-13.0) 01/04/19 15:41 Eos % (Auto) 4.3 % (0.9-2.9) H 01/04/19 15:41 Baso % (Auto) 0.6 % (0.2-1.0) 01/04/19 15:41 Neut # (Auto) 3.5 x10^3/uL (2.2-4.8) 01/04/19 15:41 Lymph # (Auto) 1.1 X10^3/uL (1.3-2.9) L 01/04/19 15:41 [place] # (Auto) 0.3 x10^3/uL (0.3-0.8) 01/04/19 15:41 Eos # (Auto) 0.2 x10^3/uL (0.0-0.2) 01/04/19 15:41 Baso # (Auto) 0.0 X10^3/uL (0.0-0.1) 01/04/19 15:41 Absolute Nucleated RBC 0.0 /100WBC 01/04/19 15:41 Sodium 142 mmol/L (136-145) 01/04/19 15:41 Corrected Sodium TNP 01/04/19 15:41 Potassium 3.4 mmol/L (3.5-5.1) L 01/04/19 15:41 Chloride 103 mmol/L (98-107) 01/04/19 15:41 Carbon Dioxide 31.4 mmol/L (21-32) 01/04/19 15:41 BUN 13 mg/dL (7-18) 01/04/19 15:41 Creatinine 0.92 mg/dL (0.55-1.02) 01/04/19 15:41 Est GFR (MDRD) Af Amer > 60 (>60) 01/04/19 15:41 Est GFR (MDRD) Non-Af > 60 (>60) 01/04/19 15:41 Glucose 108 mg/dL (65-99) H 01/04/19 15:41 Calcium 8.8 mg/dL (8.5-10.1) 01/04/19 15:41 Corrected Calcium TNP 01/04/19 15:41 Total Bilirubin 0.60 mg/dL (0.2-1.0) 01/04/19 15:41 AST 24 Units/L (15-37) 01/04/19 15:41 ALT 17 Units/L (12-78) 01/04/19 15:41 Alkaline Phosphatase 75 Units/L (46-116) 01/04/19 15:41 Creatine Kinase 156 Units/L (26-192) 01/04/19 17:33 CK-MB (CK-2) 1.1 ng/mL (0-4.0) 01/04/19 17:33 CK/CKMB % Calc 0.7 % (<4) 01/04/19 17:33 Troponin I 0.06 ng/mL (0-1.5) 01/04/19 17:33 Total Protein 7.5 g/dL (6.4-8.2) 01/04/19 15:41 Albumin 3.4 g/dL (3.4-5.0) 01/04/19 15:41 Globulin 4.1 g/dL (2.5-4.5) 01/04/19 15:41 Albumin/Globulin Ratio 0.8 Ratio (1.1-2.1) L 01/04/19 15:41 Opioid Opioid Risk Tool Total: 0 Total Score Risk Category: Low Risk Copyright: Pil[employer] J[employer] predicting aberrant behaviors Diagnosis Discharge Problem: Brain TIA, Acute hypokalemia Altered mental status Qualifiers: Altered mental status type: transient alteration of awareness Qualified Code(s): R40.4 - Transient alteration of awareness
--- NOTE | 2019-01-04 15:37 | RAD ---
Examination: AP chest History: AMS Comparison 03/16/2018 Findings: Normal heart size. Chronic interstitial coarsening is again noted the lungs as before. Hiatal hernia of moderate size. No acute consolidation or pleural fluid. Impression: No significant interval change or acute disease when compared to prior exam. Reported By:
--- NOTE | 2019-01-04 15:42 | CT ---
CT HEAD WITHOUT CONTRAST CLINICAL HISTORY: 78-year-old female with altered mental status. COMPARISON: CT head 09/19/2015, MR brain 09/21/2015. TECHNIQUE: Multiple, non-contrasted axial CT images were obtained from the skull base to the cranial vertex. Coronal and sagittal reformats were performed. Dose reduction techniques including Automated Exposure Control (AEC) and adjustment of mA and kV were utilized. FINDINGS: There are no abnormal intra- or extra-axial fluid collections, midline shift, or mass effect. Call-white differentiation is normal. Global cortical involutional changes are present that are advanced for the patient's stated age. The ventricular system is enlarged but commensurate with the degree of sulcal prominence. Chronic encephalomalacia right frontal lobe. Periventricular and supraventricular white matter hypodensity is present that is nonspecific in appearance, but most likely to represent microvascular ischemic changes. Atherosclerotic vascular calcification is present within the carotid siphons and distal vertebral arteries. The imaged paranasal sinuses, mastoid air cells, and tympanic spaces are clear. IMPRESSION: 1. No definite evidence of an acute intracranial process. If clinical concern persists for acute stroke and it would alter patient management, consider MRI/MRA brain. 2. Moderate microvascular white matter ischemic changes, with associated volume loss. Reported By:
[2019-01-04 15:56] LABS: BASOPHILS % (AUTO) 0.6 % (0.2-1.0); EOSINOPHILS # (AUTO) 0.2 x10^3/uL (0.0-0.2); EOSINOPHILS % (AUTO) 4.3 % (0.9-2.9); HEMATOCRIT 38.2 % (36.0-47.0); HEMOGLOBIN 12.9 g/dL (12.0-16.0); LYMPHOCYTES # (AUTO) 1.1 X10^3/uL (1.3-2.9); LYMPHOCYTES % (AUTO) 20.9 % (21.0-51.0); MEAN CORPUSCULAR HEMOGLOBIN 28.8 pg (27.0-34.0); MEAN CORPUSCULAR HGB CONC 33.7 g/dL (33.0-35.0); MEAN CORPUSCULAR VOLUME 85.6 fL (80.0-100.0); MEAN PLATELET VOLUME 8.7 fL (7.4-11.0); MONOCYTES # (AUTO) 0.3 x10^3/uL (0.3-0.8); NEUTROPHILS # (AUTO) 3.5 x10^3/uL (2.2-4.8); NEUTROPHILS % (AUTO) 68.2 % (42.0-75.0); PLATELET COUNT 224 X10^3/uL (150.0-450.0); RED BLOOD COUNT 4.47 X10^6/uL (3.5-5.4); RED CELL DISTRIBUTION WIDTH 13.7 % (11.6-16.5); WHITE BLOOD COUNT 5.2 X10^3/uL (3.6-10.0)
[2019-01-04 16:12] LABS: BLOOD UREA NITROGEN 13 mg/dL (7-18); CALCIUM 8.8 mg/dL (8.5-10.1); CARBON DIOXIDE 31.4 mmol/L (21-32); CHLORIDE 103 mmol/L (98-107); CREATININE 0.92 mg/dL (0.55-1.02); SODIUM 142 mmol/L (136-145); TROPONIN I 0.07 ng/mL (0-1.5); eGFR NON BLACK RACES > 60 (>60)
[2019-01-04 16:16] LABS: ALANINE AMINOTRANSFERASE 17 Units/L (12-78); ALBUMIN 3.4 g/dL (3.4-5.0); ALKALINE PHOSPHATASE 75 Units/L (46-116); ASPARTATE AMINO TRANSFERASE 24 Units/L (15-37); CKMB % 0.9 % (<4); CREATINE KINASE 154 Units/L (26-192); CREATINE KINASE MB 1.4 ng/mL (0-4.0); TOTAL PROTEIN 7.5 g/dL (6.4-8.2)
[2019-01-04 18:01] LABS: CKMB % 0.7 % (<4); CREATINE KINASE MB 1.1 ng/mL (0-4.0); TROPONIN I 0.06 ng/mL (0-1.5)
[2019-01-04] MEDS: NS 1000 ML 1,000 ML IV SCH (19:54)
[2019-01-04] MEDS ORDERED: K-DUR TAB 20 MEQ PO PRN (20:20)
[2019-01-04] MEDS ORDERED: POTASSIUM CHLORIDE LIQ 20 MEQ UDC PO PRN ×2 (20:20→20:35)
[2019-01-04] MEDS ORDERED: MICRO K EXTEN CAP 10 MEQ PO PRN ×2 (20:20→20:35)
[2019-01-04] MEDS ORDERED: POTASSIUM CHL 60 MEQ/NS 0.45% 500 ML IV PRN ×2 (20:20→20:35)
[2019-01-04] MEDS ORDERED: POTASSIUM CHL 40 MEQ/NS 0.45% 500 ML IV PRN ×2 (20:20→20:35)
[2019-01-04] MEDS ORDERED: KLOR-CON PO PRN ×2 (20:20→20:35)
[2019-01-04] MEDS ORDERED: K-RIDER 10 MEQ/NS 100 ML 10 MEQ/100 ML BAG IV PRN ×2 (20:20→20:35)
[2019-01-04 20:40] LABS: BILIRUBIN,URINE 1+ (NEGATIVE); BLOOD/HEMOGLOBIN,URINE 1+ (NEGATIVE); GLUCOSE, URINE NEGATIVE (NEGATIVE); KETONES,URINE 2+ (NEGATIVE); LEUKOCYTE ESTERASE ,URINE 2+ (NEGATIVE); NITRITES,URINE POSITIVE (NEGATIVE); PROTEIN,URINE 2+ (NEGATIVE); UROBILINOGEN,URINE 2+ (NORMAL)
[2019-01-04 20:45] LABS: APPEARANCE,URINE SLIGHTLY HAZY (CLEAR); COLOR,URINE AMBER (YELLOW)
[2019-01-04 20:46] LABS: BACTERIA,URINE TRACE /HPF (NEGATIVE); RBC,URINE 0-2 /HPF (0-3); SQUAMOUS EPITHELIAL CELL,UR FEW /HPF (NEGATIVE)
[2019-01-04 20:47] LABS: HYALINE CASTS, URINE FEW /LPF (NEGATIVE); MUCUS,URINE MODERATE /HPF (NEGATIVE)
[2019-01-04] MEDS: MAGNESIUM SULFATE 1 GRAM/100 mL PREMIX 1 GM/100 ML BAG IV PRN ×2 (21:10→22:09)
[2019-01-04] MEDS: K-DUR TAB 20 MEQ PO PRN (21:11)
[2019-01-04 21:21] VITALS: BMI 26.9
[2019-01-04] MEDS ORDERED: AFLURIA II4 or FLUARIX II4 IM ONE (21:21)
--- NOTE | 2019-01-04 21:31 | DR.H&P ---
H&P History & Physical for Day of: H&P Date: 01/05/19 Chief Complaint Chief Complaint: Confusion Allergies Allergies Allergy/AdvReac Type Severity Reaction Status Date / Time codeine Allergy Verified 03/16/18 16:45 levofloxacin [From Levaquin] Allergy Verified 03/16/18 16:45 Sulfa (Sulfonamide Allergy Verified 03/16/18 16:45 Antibiotics) [SULFA] History of Present Illness History of Present Illness: Pt is a 78 yo f pmhx CVA, HTN, HLD, Lupus, Anxiety, per ED note presented w/ daughter who had concerns that patient was having confusion. Daughter noticed that patient was disoriented and was not able to get her words out. Pt today admitted that she felt confused during episode and also noted it has happened before, both when she had a CVA and also when she has UTIs. She feels like this time it was because of a urinary tract infection. She feels alert and not confused this morning. No acute events overnight. Past Medical History Past Medical History: Anxiety, Arthritis, CVA, Dyslipidemia and Hypertension Additional Medical History: Diverticulosis, Muscle Weakness Past Surgical History Surgical History: Bowel Resection, Cholecystectomy, Hysterectomy and Ortho Surgery Additional Surgical History: Heart Cath, Tubal Ligation, Breast Biopsies, Lumpectomy Family History Family Medical History: [place], Coronary Artery Disease and Hypertension Social History Does patient currently use any type of tobacco product: No Have you used tobacco products in the last 12 months: No Type of Tobacco Use: None Does any household member use tobacco: No Alcohol Use: None Drug Use: None Medications Home Medications: codeine Allergy (Verified 03/16/18 16:45) levofloxacin [From Levaquin] Allergy (Verified 03/16/18 16:45) Sulfa (Sulfonamide Antibiotics) [SULFA] Allergy (Verified 03/16/18 16:45) CONTINUE taking the following medications Hydroxychloroquine Sulfate [Hydroxychloroquine Sulfat] 200 mg PO DAILYHS 01/04/19 [History] cholecalciferol (vitamin D3) 2,000 unit PO DAILYAC 01/04/19 [History] clopidogrel 75 mg PO DAILYHS 01/04/19 [History] duloxetine 60 mg PO DAILYAC 01/04/19 [History] magnesium 250 mg PO DAILYAC 01/04/19 [History] meloxicam 7.5 mg PO DAILYAC 01/04/19 [History] pantoprazole 40 mg PO BID 01/04/19 [History] prasterone (dhea) [DHEA] 25 mg PO DAILYAC 01/04/19 [History] Labs Result Diagrams: 01/05/19 04:24 01/05/19 04:24 Labs: Laboratory WBC 5.2 X10^3/uL (3.6-10.0) 01/04/19 15:41 RBC 4.47 X10^6/uL (3.5-5.4) 01/04/19 15:41 Hgb 12.9 g/dL (12.0-16.0) 01/04/19 15:41 Hct 38.2 % (36.0-47.0) 01/04/19 15:41 MCV 85.6 fL (80.0-100.0) 01/04/19 15:41 MCH 28.8 pg (27.0-34.0) 01/04/19 15:41 MCHC 33.7 g/dL (33.0-35.0) 01/04/19 15:41 RDW 13.7 % (11.6-16.5) 01/04/19 15:41 Plt Count 224 X10^3/uL (150.0-450.0) 01/04/19 15:41 MPV 8.7 fL (7.4-11.0) 01/04/19 15:41 Neut % (Auto) 68.2 % (42.0-75.0) 01/04/19 15:41 Lymph % (Auto) 20.9 % (21.0-51.0) L 01/04/19 15:41 [place] % (Auto) 6.0 % (0.0-13.0) 01/04/19 15:41 Eos % (Auto) 4.3 % (0.9-2.9) H 01/04/19 15:41 Baso % (Auto) 0.6 % (0.2-1.0) 01/04/19 15:41 Neut # (Auto) 3.5 x10^3/uL (2.2-4.8) 01/04/19 15:41 Lymph # (Auto) 1.1 X10^3/uL (1.3-2.9) L 01/04/19 15:41 [place] # (Auto) 0.3 x10^3/uL (0.3-0.8) 01/04/19 15:41 Eos # (Auto) 0.2 x10^3/uL (0.0-0.2) 01/04/19 15:41 Baso # (Auto) 0.0 X10^3/uL (0.0-0.1) 01/04/19 15:41 Absolute Nucleated RBC 0.0 /100WBC 01/04/19 15:41 Sodium 142 mmol/L (136-145) 01/04/19 15:41 Corrected Sodium TNP 01/04/19 15:41 Potassium 3.4 mmol/L (3.5-5.1) L 01/04/19 15:41 Chloride 103 mmol/L (98-107) 01/04/19 15:41 Carbon Dioxide 31.4 mmol/L (21-32) 01/04/19 15:41 BUN 13 mg/dL (7-18) 01/04/19 15:41 Creatinine 0.92 mg/dL (0.55-1.02) 01/04/19 15:41 Est GFR (MDRD) Af Amer > 60 (>60) 01/04/19 15:41 Est GFR (MDRD) Non-Af > 60 (>60) 01/04/19 15:41 Glucose 108 mg/dL (65-99) H 01/04/19 15:41 Calcium 8.8 mg/dL (8.5-10.1) 01/04/19 15:41 Corrected Calcium TNP 01/04/19 15:41 Magnesium 1.5 mg/dL (1.7-2.9) L 01/04/19 17:33 Total Bilirubin 0.60 mg/dL (0.2-1.0) 01/04/19 15:41 AST 24 Units/L (15-37) 01/04/19 15:41 ALT 17 Units/L (12-78) 01/04/19 15:41 Alkaline Phosphatase 75 Units/L (46-116) 01/04/19 15:41 Creatine Kinase 156 Units/L (26-192) 01/04/19 17:33 CK-MB (CK-2) 1.1 ng/mL (0-4.0) 01/04/19 17:33 CK/CKMB % Calc 0.7 % (<4) 01/04/19 17:33 Troponin I 0.06 ng/mL (0-1.5) 01/04/19 17:33 Total Protein 7.5 g/dL (6.4-8.2) 01/04/19 15:41 Albumin 3.4 g/dL (3.4-5.0) 01/04/19 15:41 Globulin 4.1 g/dL (2.5-4.5) 01/04/19 15:41 Albumin/Globulin Ratio 0.8 Ratio (1.1-2.1) L 01/04/19 15:41 Specimen Type Clean catch urine 01/04/19 20:22 Urine Color [place] (YELLOW) 01/04/19 20:22 Urine Appearance Slightly hazy (CLEAR) 01/04/19 20:22 Urine pH 5.0 (5.0 - 8.0) 01/04/19 20:22 Ur Specific [place] 1.025 (1.000-1.030) 01/04/19 20:22 Urine Protein 2+ (NEGATIVE) 01/04/19 20:22 Urine Glucose (UA) Negative (NEGATIVE) 01/04/19 20:22 Urine Ketones 2+ (NEGATIVE) 01/04/19 20:22 Urine Occult Blood 1+ (NEGATIVE) 01/04/19 20: Urine Nitrite Positive (NEGATIVE) 01/04/19 20:22 Urine Bilirubin 1+ (NEGATIVE) 01/04/19 20:22 Urine Urobilinogen 2+ (NORMAL) 01/04/19 20:22 Ur Leukocyte Esterase 2+ (NEGATIVE) 01/04/19 20:22 Urine RBC 0-2 /HPF (0-3) 01/04/19 20:22 Urine WBC 3-5 /HPF (0-5) 01/04/19 20:22 Ur Squamous Epith Cells Few /HPF (NEGATIVE) 01/04/19 20:22 Urine Bacteria Trace /HPF (NEGATIVE) 01/04/19 20:22 Hyaline Casts Few /LPF (NEGATIVE) 01/04/19 20:22 Urine Mucus Moderate /HPF (NEGATIVE) 01/04/19 20:22 Ur Culture Indicated? No/not indicated 01/04/19 20:22 Review of Systems Constitutional: denies Fever, Chills and Weakness Eyes: No Symptoms Reported ENT: No Symptoms Reported Respiratory: No Symptoms Reported Cardiovascular: No Symptoms Reported Gastrointestinal: No Symptoms Reported Genitourinary: Dysuria and Frequency Musculoskeletal: No Symptoms Reported Skin: No Symptoms Reported Neurological: Change in Speech and Confusion; denies Weakness and Numbness Physical Exam Vital Signs: Temperature 98.2 F Pulse Rate [Brachial] 96 Pulse Rate 105 Respiratory Rate 18 Blood Pressure [Left Arm] 152/89 Blood Pressure [Right Arm] 142/74 Blood Pressure 134/85 O2 Sat by Pulse Oximetry 97 Oriented: Normal Eyes: Normal Ear: Normal Nose: Normal Respiratory: Clear Throughout Cardiovascular: Normal : Normal Auscultation: Bowel Sounds: Normal Palpation: Normal Tenderness: Normal Skin: Normal Musculoskeletal: Normal Psychiatric: Normal Mood Description: Calm Speech Pattern: Clear Assessment/Plan (1) Brain TIA: Status: Acute Plan: CT imaging negative for acute changes. Will get MRI, carotid duplex, Echo for TIA workup. PT/OT/ST. Neuro checks. (2) Cystitis: Status: Acute Plan: UA c/w infection, possible differential for confusion. Rocephin(01/04/19) UrineCx:pending (3) Essential hypertension: Status: Chronic Plan: Continue home meds (4) Hyperlipidemia: Qualifiers: Hyperlipidemia type: mixed hyperlipidemia Qualified Code(s): E78.2 - Mixed hyperlipidemia Status: Chronic Plan: continue home meds (5) Hypokalemia: Status: Acute Plan: Supplement per protocol (6) History of CVA (cerebrovascular accident): Status: Chronic (7) Hypothyroidism: Qualifiers: Hypothyroidism type: acquired Qualified Code(s): E03.9 - Hypothyroidism, unspecified Status: Chronic
[2019-01-04] MEDS: ROCEPHIN VIAL 1 GRAM 1 G in NS 100 ML IV + SPIKE MINIBAG* 100 ML IV SCH ×2 (22:04→23:29)
[2019-01-05 00:11] LABS: CKMB % 0.9 % (<4); CREATINE KINASE MB 1.4 ng/mL (0-4.0); TROPONIN I 0.06 ng/mL (0-1.5)
[2019-01-05] MEDS ORDERED: RESTORIL CAP 15 MG PO ONE (00:51)
[2019-01-05] MEDS: RESTORIL CAP 15 MG PO PRN (00:59)
[2019-01-05 05:27] LABS: BASOPHILS % (AUTO) 0.4 % (0.2-1.0); EOSINOPHILS # (AUTO) 0.3 x10^3/uL (0.0-0.2); EOSINOPHILS % (AUTO) 6.7 % (0.9-2.9); HEMATOCRIT 36.1 % (36.0-47.0); LYMPHOCYTES % (AUTO) 22.3 % (21.0-51.0); MEAN CORPUSCULAR HEMOGLOBIN 28.7 pg (27.0-34.0); MEAN CORPUSCULAR HGB CONC 33.1 g/dL (33.0-35.0); MEAN CORPUSCULAR VOLUME 86.8 fL (80.0-100.0); MEAN PLATELET VOLUME 9.8 fL (7.4-11.0); MONOCYTES # (AUTO) 0.2 x10^3/uL (0.3-0.8); MONOCYTES % (AUTO) 5.1 % (0.0-13.0); NEUTROPHILS % (AUTO) 65.5 % (42.0-75.0); PLATELET COUNT 203 X10^3/uL (150.0-450.0); RED BLOOD COUNT 4.16 X10^6/uL (3.5-5.4); RED CELL DISTRIBUTION WIDTH 13.5 % (11.6-16.5); WHITE BLOOD COUNT 4.5 X10^3/uL (3.6-10.0)
[2019-01-05 05:46] LABS: ALANINE AMINOTRANSFERASE 15 Units/L (12-78); ALBUMIN 3.1 g/dL (3.4-5.0); ALKALINE PHOSPHATASE 68 Units/L (46-116); ASPARTATE AMINO TRANSFERASE 23 Units/L (15-37); BLOOD UREA NITROGEN 12 mg/dL (7-18); CALCIUM 8.4 mg/dL (8.5-10.1); CARBON DIOXIDE 31.7 mmol/L (21-32); CHLORIDE 99 mmol/L (98-107); COR CA(FOR HYPOALB) 9.1 mg/dL (8.5-10.1); CREATINE KINASE 182 Units/L (26-192); CREATINE KINASE MB 1.8 ng/mL (0-4.0); MAGNESIUM 1.9 mg/dL (1.7-2.9); SODIUM 138 mmol/L (136-145); TROPONIN I 0.06 ng/mL (0-1.5); eGFR NON BLACK RACES > 60 (>60)
[2019-01-05] MEDS: K-DUR TAB 20 MEQ PO PRN (06:19)
[2019-01-05] MEDS: MAGNESIUM SULFATE 1 GRAM/100 mL PREMIX 1 GM/100 ML BAG IV PRN ×2 (06:20→06:22)
[2019-01-05] MEDS ORDERED: SYNTHROID 25 mcg TAB ONE (09:54)
[2019-01-05] MEDS ORDERED: TOPROL XL PO ONE (09:54)
[2019-01-05] MEDS: SYNTHROID 25 mcg TAB PO SCH ×2 (10:01→16:13)
[2019-01-05] MEDS: TOPROL XL PO SCH ×2 (10:02→21:02)
[2019-01-05] MEDS: CYMBALTA PO SCH (16:13)
[2019-01-05] MEDS: VITAMIN D3 PO SCH (16:14)
[2019-01-05] MEDS: TYLENOL 325 MG TAB PO PRN (16:14)
[2019-01-05] MEDS: NS 1000 ML 1,000 ML IV SCH (21:00)
[2019-01-05] MEDS: ROCEPHIN VIAL 1 GRAM 1 G in NS 100 ML IV + SPIKE MINIBAG* 100 ML IV SCH (21:01)
[2019-01-05] MEDS: PLAVIX PO SCH (21:02)
[2019-01-05] MEDS: PLAQUENIL PO SCH (21:02)
[2019-01-05] MEDS: PROTONIX TAB 40 MG PO SCH (21:03)
[2019-01-06] MEDS ORDERED: MAALOX or MYLANTA PO PRN (04:45)
[2019-01-06] MEDS ORDERED: MAALOX or MYLANTA ONE (04:46)
[2019-01-06 04:57] LABS: BASOPHILS % (AUTO) 0.8 % (0.2-1.0); EOSINOPHILS # (AUTO) 0.3 x10^3/uL (0.0-0.2); EOSINOPHILS % (AUTO) 7.2 % (0.9-2.9); HEMATOCRIT 34.3 % (36.0-47.0); HEMOGLOBIN 11.6 g/dL (12.0-16.0); LYMPHOCYTES # (AUTO) 1.1 X10^3/uL (1.3-2.9); LYMPHOCYTES % (AUTO) 23.3 % (21.0-51.0); MEAN CORPUSCULAR HGB CONC 33.7 g/dL (33.0-35.0); MEAN PLATELET VOLUME 9.2 fL (7.4-11.0); MONOCYTES # (AUTO) 0.2 x10^3/uL (0.3-0.8); MONOCYTES % (AUTO) 3.8 % (0.0-13.0); NEUTROPHILS % (AUTO) 64.9 % (42.0-75.0); PLATELET COUNT 195 X10^3/uL (150.0-450.0); RED BLOOD COUNT 3.99 X10^6/uL (3.5-5.4); RED CELL DISTRIBUTION WIDTH 13.7 % (11.6-16.5); WHITE BLOOD COUNT 4.7 X10^3/uL (3.6-10.0)
[2019-01-06 05:06] LABS: BLOOD UREA NITROGEN 13 mg/dL (7-18); CARBON DIOXIDE 27.3 mmol/L (21-32); CHLORIDE 102 mmol/L (98-107); CREATININE 0.64 mg/dL (0.55-1.02); SODIUM 139 mmol/L (136-145); eGFR NON BLACK RACES > 60 (>60)
[2019-01-06] MEDS: PLAQUENIL PO SCH ×2 (08:53→20:56)
[2019-01-06] MEDS: PROTONIX TAB 40 MG PO SCH ×2 (08:53→20:56)
--- NOTE | 2019-01-06 10:36 | PCM.PROG ---
Progress Note Progress Note for Day of Date of Exam: 01/06/19 Subjective Subjective: Pt is a 78 yo f pmhx CVA, HTN, HLD, Lupus, Anxiety, per ED note presented w/ daughter who had concerns that patient was having confusion. Daughter noticed that patient was disoriented and was not able to get her words out. Pt today admitted that she felt confused during episode and also noted it has happened before, both when she had a CVA and also when she has UTIs. She feels like this time it was because of a urinary tract infection. She is feeling better this morning sitting up on couch. She does report having a persistent cough for the past 2-3 days. Will get CXR, faint crackles auscultated, she is not requiring supplemental O2, depending on results may consider one time IV Lasix. Past Medical Family Social History Past Med/Fam/Surg Hx: No changes since H&P Allergies: Allergies codeine Allergy (Verified 03/16/18 16:45) levofloxacin [From Levaquin] Allergy (Verified 03/16/18 16:45) Sulfa (Sulfonamide Antibiotics) [SULFA] Allergy (Verified 03/16/18 16:45) Review of Systems ROS: No change since H&P ROS changes noted: See HPI Vital Signs and I&O's Vital Signs: Temperature 98.4 F Pulse Rate [Brachial] 89 Pulse Rate 105 Respiratory Rate 20 Blood Pressure [Left Arm] 161/88 Blood Pressure [Right Arm] 164/92 Blood Pressure 134/85 O2 Sat by Pulse Oximetry 94 Intake and Output: Intake & Output 01/03/19 01/04/19 01/05/19 01/06/19 23:59 23:59 23:59 23:59 Intake Total 1074 / 1074 2455 / 2455 770 / 770 Balance 1074 / 1074 2455 / 2455 770 / 770 Physical Exam Oriented: Normal Eyes: Normal Ear: Normal Nose: Normal Respiratory: OTHER (Diffuse crackles bilaterally); negative Wheezes Cardiovascular: Normal : Normal Auscultation: Bowel Sounds: Normal Tenderness: Normal Skin: Normal Musculoskeletal: Normal Psychiatric: Normal Mood Description: Calm and Appropriate Speech Pattern: Clear Laboratory and Diagnostics Result Diagrams: 01/06/19 04:00 01/06/19 04:00 Labs: 01/04/19 20:22 Urine,Clean Catch Urine Culture - Preliminary Laboratory WBC 4.7 X10^3/uL (3.6-10.0) 01/06/19 04:00 RBC 3.99 X10^6/uL (3.5-5.4) 01/06/19 04:00 Hgb 11.6 g/dL (12.0-16.0) L 01/06/19 04:00 Hct 34.3 % (36.0-47.0) L 01/06/19 04:00 MCV 86.0 fL (80.0-100.0) 01/06/19 04:00 MCH 29.0 pg (27.0-34.0) 01/06/19 04:00 MCHC 33.7 g/dL (33.0-35.0) 01/06/19 04:00 RDW 13.7 % (11.6-16.5) 01/06/19 04:00 Plt Count 195 X10^3/uL (150.0-450.0) 01/06/19 04:00 MPV 9.2 fL (7.4-11.0) 01/06/19 04:00 Neut % (Auto) 64.9 % (42.0-75.0) 01/06/19 04:00 Lymph % (Auto) 23.3 % (21.0-51.0) 01/06/19 04:00 [place] % (Auto) 3.8 % (0.0-13.0) 01/06/19 04:00 Eos % (Auto) 7.2 % (0.9-2.9) H 01/06/19 04:00 Baso % (Auto) 0.8 % (0.2-1.0) 01/06/19 04:00 Neut # (Auto) 3.0 x10^3/uL (2.2-4.8) 01/06/19 04:00 Lymph # (Auto) 1.1 X10^3/uL (1.3-2.9) L 01/06/19 04:00 [place] # (Auto) 0.2 x10^3/uL (0.3-0.8) L 01/06/19 04:00 Eos # (Auto) 0.3 x10^3/uL (0.0-0.2) H 01/06/19 04:00 Baso # (Auto) 0.0 X10^3/uL (0.0-0.1) 01/06/19 04:00 Absolute Nucleated RBC 0.0 /100WBC 01/06/19 04:00 Sodium 139 mmol/L (136-145) 01/06/19 04:00 Corrected Sodium TNP 01/06/19 04:00 Potassium 3.8 mmol/L (3.5-5.1) 01/06/19 04:00 Chloride 102 mmol/L (98-107) 01/06/19 04:00 Carbon Dioxide 27.3 mmol/L (21-32) 01/06/19 04:00 BUN 13 mg/dL (7-18) 01/06/19 04:00 Creatinine 0.64 mg/dL (0.55-1.02) 01/06/19 04:00 Est GFR (MDRD) Af Amer > 60 (>60) 01/06/19 04:00 Est GFR (MDRD) Non-Af > 60 (>60) 01/06/19 04:00 Glucose 108 mg/dL (65-99) H 01/06/19 04:00 Calcium 8.0 mg/dL (8.5-10.1) L 01/06/19 04:00 Corrected Calcium 9.1 mg/dL (8.5-10.1) 01/05/19 04:24 Magnesium 1.9 mg/dL (1.7-2.9) 01/05/19 04:24 Total Bilirubin 0.50 mg/dL (0.2-1.0) 01/05/19 04:24 AST 23 Units/L (15-37) 01/05/19 04:24 ALT 15 Units/L (12-78) 01/05/19 04:24 Alkaline Phosphatase 68 Units/L (46-116) 01/05/19 04:24 Creatine Kinase 182 Units/L (26-192) 01/05/19 04:24 CK-MB (CK-2) 1.8 ng/mL (0-4.0) 01/05/19 04:24 CK/CKMB % Calc 1.0 % (<4) 01/05/19 04:24 Troponin I 0.06 ng/mL (0-1.5) 01/05/19 04:24 Total Protein 7.0 g/dL (6.4-8.2) 01/05/19 04:24 Albumin 3.1 g/dL (3.4-5.0) L 01/05/19 04:24 Globulin 3.9 g/dL (2.5-4.5) 01/05/19 04:24 Albumin/Globulin Ratio 0.8 Ratio (1.1-2.1) L 01/05/19 04:24 TSH 3rd Generation 2.120 uIU/mL (0.358-3.74) 01/05/19 04:24 Specimen Type Clean catch urine 01/04/19 20:22 Urine Color [place] (YELLOW) 01/04/19 20: Urine Appearance Slightly hazy (CLEAR) 01/04/19 20: Urine pH 5.0 (5.0 - 8.0) 01/04/19 20:22 Ur Specific [place] 1.025 (1.000-1.030) 01/04/19 20:22 Urine Protein 2+ (NEGATIVE) 01/04/19 20:22 Urine Glucose (UA) Negative (NEGATIVE) 01/04/19 20:22 Urine Ketones 2+ (NEGATIVE) 01/04/19 20:22 Urine Occult Blood 1+ (NEGATIVE) 01/04/19 20: Urine Nitrite Positive (NEGATIVE) 01/04/19 20: Urine Bilirubin 1+ (NEGATIVE) 01/04/19 20:22 Urine Urobilinogen 2+ (NORMAL) 01/04/19 20:22 Ur Leukocyte Esterase 2+ (NEGATIVE) 01/04/19 20:22 Urine RBC 0-2 /HPF (0-3) 01/04/19 20:22 Urine WBC 3-5 /HPF (0-5) 01/04/19 20:22 Ur Squamous Epith Cells Few /HPF (NEGATIVE) 01/04/19 20:22 Urine Bacteria Trace /HPF (NEGATIVE) 01/04/19 20: Hyaline Casts Few /LPF (NEGATIVE) 01/04/19 20:22 Urine Mucus Moderate /HPF (NEGATIVE) 01/04/19 20:22 Ur Culture Indicated? No/not indicated 01/04/19 20:22 Plan (1) Brain TIA: Status: Acute Plan: TIA workup ordered(MRI, carotid duplex, Echo for TIA workup), pt's sx appear to have resolved, will continue to monitor. Rounding physician to determine tmm if to continue to proceed w/ diagnostic tests based on clinical course. CT imaging negative for acute changes. PT/OT/ST. Neuro checks. (2) Cystitis: Status: Acute Plan: UA c/w infection, possible differential for confusion. Rocephin(01/04/19) UrineCx:pending (3) Essential hypertension: Status: Chronic Plan: Continue home meds (4) Hyperlipidemia: Status: Chronic Qualifiers: Hyperlipidemia type: mixed hyperlipidemia Qualified Code(s): E78.2 - Mixed hyperlipidemia Plan: continue home meds (5) Hypokalemia: Status: Acute Plan: Supplement per protocol (6) History of CVA (cerebrovascular accident): Status: Chronic (7) Hypothyroidism: Status: Chronic Qualifiers: Hypothyroidism type: acquired Qualified Code(s): E03.9 - Hypothyroidism, unspecified
--- NOTE | 2019-01-06 14:47 | RAD ---
HISTORY: Cough Study: Single-view chest Comparison: 01/04/2019 Findings: The trachea is midline. The cardiac silhouette is stable in size. The lungs are clear without focal infiltrate or effusion. The bony thorax is unremarkable. IMPRESSION: 1. No acute cardiopulmonary disease. Reported By:
[2019-01-06] MEDS: CYMBALTA PO SCH (15:46)
[2019-01-06] MEDS: SYNTHROID 25 mcg TAB PO SCH (15:47)
[2019-01-06] MEDS: VITAMIN D3 PO SCH (15:48)
[2019-01-06] MEDS: TYLENOL 325 MG TAB PO PRN (18:23)
[2019-01-06] MEDS: PLAVIX PO SCH (20:55)
[2019-01-06] MEDS: RESTORIL CAP 15 MG PO PRN (20:56)
[2019-01-06] MEDS: TOPROL XL PO SCH (20:57)
[2019-01-06] MEDS: ROCEPHIN VIAL 1 GRAM 1 G in NS 100 ML IV + SPIKE MINIBAG* 100 ML IV SCH (22:00)
[2019-01-07] MEDS: NS 1000 ML 1,000 ML IV SCH (00:26)
[2019-01-07 05:15] LABS: BASOPHILS % (AUTO) 0.3 % (0.2-1.0); EOSINOPHILS # (AUTO) 0.4 x10^3/uL (0.0-0.2); EOSINOPHILS % (AUTO) 8.9 % (0.9-2.9); HEMATOCRIT 36.3 % (36.0-47.0); HEMOGLOBIN 11.8 g/dL (12.0-16.0); LYMPHOCYTES # (AUTO) 1.2 X10^3/uL (1.3-2.9); LYMPHOCYTES % (AUTO) 27.8 % (21.0-51.0); MEAN CORPUSCULAR HEMOGLOBIN 28.4 pg (27.0-34.0); MEAN CORPUSCULAR HGB CONC 32.5 g/dL (33.0-35.0); MEAN CORPUSCULAR VOLUME 87.5 fL (80.0-100.0); MEAN PLATELET VOLUME 9.6 fL (7.4-11.0); MONOCYTES # (AUTO) 0.3 x10^3/uL (0.3-0.8); MONOCYTES % (AUTO) 6.1 % (0.0-13.0); NEUTROPHILS # (AUTO) 2.4 x10^3/uL (2.2-4.8); NEUTROPHILS % (AUTO) 56.9 % (42.0-75.0); PLATELET COUNT 211 X10^3/uL (150.0-450.0); RED BLOOD COUNT 4.15 X10^6/uL (3.5-5.4); RED CELL DISTRIBUTION WIDTH 13.9 % (11.6-16.5); WHITE BLOOD COUNT 4.2 X10^3/uL (3.6-10.0)
[2019-01-07 05:21] LABS: BLOOD UREA NITROGEN 8 mg/dL (7-18); CALCIUM 8.2 mg/dL (8.5-10.1); CARBON DIOXIDE 30.6 mmol/L (21-32); CHLORIDE 102 mmol/L (98-107); CREATININE 0.61 mg/dL (0.55-1.02); SODIUM 139 mmol/L (136-145); eGFR NON BLACK RACES > 60 (>60)
[2019-01-07] MEDS: PROTONIX TAB 40 MG PO SCH (08:29)
[2019-01-07] MEDS: PLAQUENIL PO SCH (08:30)
[2019-01-07] MEDS ORDERED: MILK OF MAGNESIA PO SCH (09:00)
[2019-01-07] MEDS ORDERED: COLACE CAP 100 MG PO SCH (09:00)
--- NOTE | 2019-01-07 12:55 | VAS ---
HISTORY: TIA , stroke . Study: Color-flow duplex Doppler studies were performed of the neck vessels Comparison: None Technique: Multiple altman scale and color flow Doppler images of the right and left carotid arterial system were obtained. The vertebral arterial system was evaluated as well. Findings: There is moderate intimal thickening and calcified plaque along both bifurcations extending into the proximal internal carotid arteries. The peak velocity in the right ICA is 98 centimeters/second. Peak velocity in the left ICA is 120 centimeters/second. The ICA to CCA ratio on the right is 1.4 on the left is 2.5 . There is antegrade flow in the vertebrals with no spectral broadening . IMPRESSION: Moderate calcified plaque in both bifurcations extending into the proximal internal carotid arteries which is more prominent on the left and is causing narrowing in the proximal left internal carotid artery in the range of 50-60%. Unremarkable vertebral arteries. Reported By:
--- NOTE | 2019-01-07 13:07 | MRI ---
History: TIA and stroke Exam: MRI brain without contrast Comparison: MRI brain 09/21/2015 Technique: Routine multiplanar multisequence imaging was performed through the brain without contrast. Findings: The ventricles are mildly enlarged with diffuse mild prominence of the cortical sulci . There are extensive punctate and confluent areas of abnormal signal throughout the periventricular white matter extending inferiorly which is more prominent . There is minimal increased signal along the pontine portion of the brainstem and cerebellum which is slightly more prominent . No abnormal signal is seen on the diffusion-weighted data set which would suggest any type of acute ischemia. No intracranial hemorrhage or edema is seen and there is no extra-axial fluid collection or mass. The midline structures are unremarkable. The visualized vascular structures show normal flow voids. The 7th and 8th nerve complexes are symmetric and normal size and signal intensity. There is a small old cortical infarct along the right cerebellar hemisphere inferiorly which is unchanged. IMPRESSION: Mild atrophy and moderate chronic microischemic changes scattered throughout the deep white matter, brainstem , and cerebellum which is more prominent with no acute abnormality seen. Reported By:
[2019-01-07 14:20] VITALS: BP 152/86
== END 2019-01-07 15:59 | disposition home or self-care (01) ==
LOC: MED/SURG 14:49 → ER 14:49 → MED/SURG 20:11
PROVIDERS: ADMIT Family Medicine; ATTEND Internal Medicine
DX: R40.4 Transient alteration of awareness; E03.8 Other specified hypothyroidism; N30.90 Cystitis, unspecified without hematuria; Z86.73 Personal history of transient ischemic attack (TIA), and cerebral infarction without residual deficits; Z23 Encounter for immunization; G45.9 Transient cerebral ischemic attack, unspecified; E78.2 Mixed hyperlipidemia; E87.6 Hypokalemia; I10 Essential (primary) hypertension
CPT/HCPCS: 36415; 70450; 70551; 71010; 71045; 80048; 80053; 81001; 82550; 82553; 83735; 84443; 84484; 85025; 87086; 90674; 90686; 93005; 93306; 93880; 94760; 96365; 99284; A4222; G0378; J0696; J3475; J3490; J7030; J7050

== ENCOUNTER 2020-07-17 15:14 | Inpatient (IN) ==
[2020-07-17 15:18] VITALS: BMI 26.6
[2020-07-17] MEDS ORDERED: CARDIZEM INJ 50 MG VIAL IVP ONE ×2 (15:48→22:50)
[2020-07-17] MEDS ORDERED: CARDIZEM INJ 50 MG VIAL ONE ×2 (15:53→22:43)
[2020-07-17 16:06] LABS: BASOPHILS # (AUTO) 0.1 X10^3/uL (0.0-0.1); BASOPHILS % (AUTO) 0.9 % (0.2-1.0); EOSINOPHILS # (AUTO) 0.3 x10^3/uL (0.0-0.2); HEMATOCRIT 31.7 % (36.0-47.0); HEMOGLOBIN 10.1 g/dL (12.0-16.0); LYMPHOCYTES # (AUTO) 0.9 X10^3/uL (1.3-2.9); MEAN CORPUSCULAR HEMOGLOBIN 27.7 pg (27.0-34.0); MEAN CORPUSCULAR HGB CONC 31.9 g/dL (33.0-35.0); MEAN CORPUSCULAR VOLUME 86.9 fL (80.0-100.0); MEAN PLATELET VOLUME 9.3 fL (7.4-11.0); MONOCYTES # (AUTO) 0.4 x10^3/uL (0.3-0.8); MONOCYTES % (AUTO) 5.2 % (0.0-13.0); NEUTROPHILS # (AUTO) 5.2 x10^3/uL (2.2-4.8); NEUTROPHILS % (AUTO) 76.9 % (42.0-75.0); PLATELET COUNT 405 X10^3/uL (150.0-450.0); RED BLOOD COUNT 3.65 X10^6/uL (3.5-5.4); RED CELL DISTRIBUTION WIDTH 14.4 % (11.6-16.5); WHITE BLOOD COUNT 6.8 X10^3/uL (3.6-10.0)
--- NOTE | 2020-07-17 16:09 | RAD ---
HISTORYCHEST PAIN, DIZZINESSSTUDYCHEST, 1 [id number] cardiomediastinal silhouette is stable. Similar bowel replacement. Possible small bilateral pleural effusions. No acute airspace disease. The bony thorax appears intact.IMPRESSIONSmall bilateral effusions. No acute airspace disease.Electronically signed by: ALENA RILEY (July 17, 2020 16:07:36)
[2020-07-17 16:26] LABS: BLOOD UREA NITROGEN 30 mg/dL (7-18); CALCIUM 8.4 mg/dL (8.5-10.1); CARBON DIOXIDE 30.1 mmol/L (21-32); CHLORIDE 105 mmol/L (98-107); COR NA(FOR HYPERGLY) 143 mmol/L (136-145); CREATININE 1.02 mg/dL (0.55-1.02); SODIUM 142 mmol/L (136-145); TROPONIN I 0.75 ng/mL (0-1.5); eGFR NON BLACK RACES 56 (>60)
[2020-07-17 16:27] LABS: ALANINE AMINOTRANSFERASE 33 Units/L (12-78); ALBUMIN 2.9 g/dL (3.4-5.0); ALKALINE PHOSPHATASE 72 Units/L (46-116); ASPARTATE AMINO TRANSFERASE 29 Units/L (15-37); CKMB % 4.4 % (<4); COR CA(FOR HYPOALB) 9.3 mg/dL (8.5-10.1); CREATINE KINASE 54 Units/L (26-192); CREATINE KINASE MB 2.4 ng/mL (0-4.0); MAGNESIUM 1.7 mg/dL (1.7-2.9)
--- NOTE | 2020-07-17 16:48 | DR.DIZZY ---
HPI Time seen Time Seen by Provider: 07/17/20 15:35 PCP Primary Care Physician: Juan HPI Comment HPI Comment: Patient presents with the complaint of continued and persistent tachycardia and weakness. patient notes that she has had a hard time walking to the bathroom without shortness of breath and palpitations. Notes that she had aortic valve surgery about 2 weeks ago at [facility] in [place]. Complaint Chief Complaint:: Pt c/o dizziness and weakness for weeks since having surgery on aortic valve. COVID-19 Coronavirus risk:travel/contact w/high risk person: No Has patient experienced Coronavirus symptoms: No Source History Provided: Patient Mode of Arrival Mode of Arrival: Wheelchair Timing Onset of Chief Complaint: 07/17/20 Context Stroke Symptoms: None PMH PMH Past Medical History: Yes Past Medical History: Anxiety, Arthritis, CVA, Dyslipidemia and Hypertension Past Surgical History: Yes Surgical History: Bowel Resection, Cholecystectomy, Hysterectomy and Ortho Surgery Family History History of Family Medical Conditions: Yes Family Medical History: [place], Coronary Artery Disease and Hypertension Social History Does patient currently use any type of tobacco product: No Have you used tobacco products in the last 12 months: No Type of Tobacco Use: None Does any household member use tobacco: No Alcohol Use: None Do you use any recreational Drugs:: No Lives With: Family Lives Where: Home Travel Risk Coronavirus risk:travel/contact w/high risk person: No Has patient experienced Coronavirus symptoms: No Infectious screening In the last 2 months have you had wt loss of >10#?: NO Have you had fever, night sweats or hemotysis?: No Have you traveled outside the country in the last 6 months?: No Isolation: Standard ROS Review of Systems Constitutional: See HPI and Weakness Respiratoy: Short of Breath Cardiovascular: Palpitations All Other Systems: Reviewed and Negative PE Vital Signs Vitals: Temperature 98.4 F Pulse Rate 100 Respiratory Rate 23 Blood Pressure [Left Arm] 166/90 Blood Pressure [Right Arm] 168/85 Blood Pressure 110/85 O2 Sat by Pulse Oximetry 98 General Limitations: No Limitations General Appearance: Alert and In No Apparent Distress Head Head Exam: Normal Inspection, Atraumatic and Normocephalic Eyes Eye exam: Normal Appearance and EOMI ENT ENT Exam: Normal Exam Neck Neck Exam: Normal Inspection and Trachea Midline Chest Chest Inspection: Normal Inspection Respiratory Respiratory Exam: Normal Lung Sounds Bilat Respiratory Exam: Bilateral: Wheezing Cardiovascular Cardiovascular Exam: Tachycardia Abdominal Exam Abdominal Exam: Normal Inspection, Normal Bowel Sounds and Soft COURSE Reevaluation 1st: Improved (HR in low 100s after diltiazem.) Consultation Consultation Comments: Spoke with Dr. Carvalho who recommends admission to the hospital. Spoke with Dr. Zepeda who accepts patient for admission. ROR Labs Reviewed Laboratory Results Reviewed?: Yes Result Diagrams: 07/17/20 15:48 07/17/20 15:48 Laboratory: WBC 6.8 X10^3/uL (3.6-10.0) 07/17/20 15:48 RBC 3.65 X10^6/uL (3.5-5.4) 07/17/20 15:48 Hgb 10.1 g/dL (12.0-16.0) L 07/17/20 15:48 Hct 31.7 % (36.0-47.0) L 07/17/20 15:48 MCV 86.9 fL (80.0-100.0) 07/17/20 15:48 MCH 27.7 pg (27.0-34.0) 07/17/20 15:48 MCHC 31.9 g/dL (33.0-35.0) L 07/17/20 15:48 RDW 14.4 % (11.6-16.5) 07/17/20 15:48 Plt Count 405 X10^3/uL (150.0-450.0) 07/17/20 15:48 MPV 9.3 fL (7.4-11.0) 07/17/20 15:48 Neut % (Auto) 76.9 % (42.0-75.0) H 07/17/20 15:48 Lymph % (Auto) 13.0 % (21.0-51.0) L 07/17/20 15:48 [place] % (Auto) 5.2 % (0.0-13.0) 07/17/20 15:48 Eos % (Auto) 4.0 % (0.9-2.9) H 07/17/20 15:48 Baso % (Auto) 0.9 % (0.2-1.0) 07/17/20 15:48 Neut # (Auto) 5.2 x10^3/uL (2.2-4.8) H 07/17/20 15:48 Lymph # (Auto) 0.9 X10^3/uL (1.3-2.9) L 07/17/20 15:48 [place] # (Auto) 0.4 x10^3/uL (0.3-0.8) 07/17/20 15:48 Eos # (Auto) 0.3 x10^3/uL (0.0-0.2) H 07/17/20 15:48 Baso # (Auto) 0.1 X10^3/uL (0.0-0.1) 07/17/20 15:48 Absolute Nucleated RBC 0.0 /100WBC 07/17/20 15:48 PT 14.2 SECONDS (11.8-14.3) 07/17/20 15:48 INR Target Range - 07/17/20 15:48 INR 1.15 (0.8-1.3) 07/17/20 15:48 APTT 28.8 SECONDS (22.9-36.5) 07/17/20 15:48 PTT Comment - 07/17/20 15:48 Sodium 142 mmol/L (136-145) 07/17/20 15:48 Corrected Sodium 143 mmol/L (136-145) 07/17/20 15:48 Potassium 4.1 mmol/L (3.5-5.1) 07/17/20 15:48 Chloride 105 mmol/L (98-107) 07/17/20 15:48 Carbon Dioxide 30.1 mmol/L (21-32) 07/17/20 15:48 BUN 30 mg/dL (7-18) H 07/17/20 15:48 Creatinine 1.02 mg/dL (0.55-1.02) 07/17/20 15:48 Est GFR (MDRD) Af Amer > 60 (>60) 07/17/20 15:48 Est GFR (MDRD) Non-Af 56 (>60) L 07/17/20 15:48 Glucose 153 mg/dL (65-99) H 07/17/20 15:48 Calcium 8.4 mg/dL (8.5-10.1) L 07/17/20 15:48 Corrected Calcium 9.3 mg/dL (8.5-10.1) 07/17/20 15:48 Magnesium 1.7 mg/dL (1.7-2.9) 07/17/20 15:48 Total Bilirubin 0.40 mg/dL (0.2-1.0) 07/17/20 15:48 AST 29 Units/L (15-37) 07/17/20 15:48 ALT 33 Units/L (12-78) 07/17/20 15:48 Alkaline Phosphatase 72 Units/L (46-116) 07/17/20 15:48 Creatine Kinase 54 Units/L (26-192) 07/17/20 15:48 CK-MB (CK-2) 2.4 ng/mL (0-4.0) 07/17/20 15:48 CK/CKMB % Calc 4.4 % (<4) 07/17/20 15:48 Troponin I 0.75 ng/mL (0-1.5) 07/17/20 15:48 Total Protein 7.0 g/dL (6.4-8.2) 07/17/20 15:48 Albumin 2.9 g/dL (3.4-5.0) L 07/17/20 15:48 Globulin 4.1 g/dL (2.5-4.5) 07/17/20 15:48 Albumin/Globulin Ratio 0.7 Ratio (1.1-2.1) L 07/17/20 15:48 XRAY X-ray Results: HISTORY CHEST PAIN, DIZZINESS STUDY CHEST, 1 VIEW COMPARISON 07/02/2020 FINDINGS The cardiomediastinal silhouette is stable. Similar bowel replacement. Possible small bilateral pleural effusions. No acute airspace disease. The bony thorax appears intact. IMPRESSION Small bilateral effusions. No acute airspace disease. Electronically signed by: ALENA RILEY (July 17, 2020 16:07:36) Opioid Opioid Risk Tool Age (Jose box if 16-45): No History of Preadolescent Sexual Abuse: No Total: 0 Total Score Risk Category: Low Risk Copyright: [employer] [facility] predicting aberrant behaviors Diagnosis Discharge Problem: Atrial fib/flutter, transient
[2020-07-17 18:39] LABS: CREATINE KINASE MB 3.1 ng/mL (0-4.0); TROPONIN I 0.66 ng/mL (0-1.5)
[2020-07-17] MEDS ORDERED: SYNTHROID 25 mcg TAB PO SCH (19:31)
[2020-07-17] MEDS ORDERED: LOPRESSOR INJ 5 MG AMP IVP ONE (19:52)
[2020-07-17] MEDS: TOPROL XL PO SCH (20:20)
[2020-07-17] MEDS: NS 1000 ML 1,000 ML IV SCH (20:21)
[2020-07-17] MEDS ORDERED: PLAVIX PO SCH (21:00)
[2020-07-17] MEDS: LOVENOX INJ 40 MG SYR SC SCH (21:13)
[2020-07-17] MEDS ORDERED: CARDIZEM INJ 125 MG VIAL ONE (22:35)
[2020-07-17] MEDS ORDERED: NS 100 ML IV 100 ML IV ONE (22:35)
[2020-07-17] MEDS: CARDIZEM INJ 125 MG VIAL 125 MG in NS 100 ML IV 100 ML IV PRN (22:52)
[2020-07-18 00:53] LABS: CKMB % 4.2 % (<4); CREATINE KINASE MB 2.4 ng/mL (0-4.0); TROPONIN I 0.35 ng/mL (0-1.5)
[2020-07-18] MEDS: TYLENOL 325 MG TAB PO PRN (05:10)
[2020-07-18] MEDS ORDERED: TYLENOL 325 MG TAB PO ONE (05:13)
[2020-07-18 05:24] LABS: BASOPHILS # (AUTO) 0.1 X10^3/uL (0.0-0.1); BASOPHILS % (AUTO) 0.7 % (0.2-1.0); EOSINOPHILS # (AUTO) 0.1 x10^3/uL (0.0-0.2); EOSINOPHILS % (AUTO) 0.7 % (0.9-2.9); HEMOGLOBIN 10.2 g/dL (12.0-16.0); LYMPHOCYTES # (AUTO) 0.9 X10^3/uL (1.3-2.9); LYMPHOCYTES % (AUTO) 12.4 % (21.0-51.0); MEAN CORPUSCULAR HEMOGLOBIN 27.5 pg (27.0-34.0); MEAN PLATELET VOLUME 9.6 fL (7.4-11.0); MONOCYTES # (AUTO) 0.4 x10^3/uL (0.3-0.8); MONOCYTES % (AUTO) 5.5 % (0.0-13.0); NEUTROPHILS % (AUTO) 80.7 % (42.0-75.0); PLATELET COUNT 431 X10^3/uL (150.0-450.0); RED BLOOD COUNT 3.72 X10^6/uL (3.5-5.4); RED CELL DISTRIBUTION WIDTH 14.8 % (11.6-16.5); WHITE BLOOD COUNT 7.4 X10^3/uL (3.6-10.0)
[2020-07-18 05:35] LABS: BILIRUBIN,URINE NEGATIVE (NEGATIVE); BLOOD/HEMOGLOBIN,URINE NEGATIVE (NEGATIVE); GLUCOSE, URINE NEGATIVE (NEGATIVE); KETONES,URINE NEGATIVE (NEGATIVE); LEUKOCYTE ESTERASE ,URINE NEGATIVE (NEGATIVE); NITRITES,URINE NEGATIVE (NEGATIVE); PROTEIN,URINE 2+ (NEGATIVE); UROBILINOGEN,URINE NORMAL (NORMAL)
[2020-07-18 05:38] LABS: ALANINE AMINOTRANSFERASE 35 Units/L (12-78); ALKALINE PHOSPHATASE 78 Units/L (46-116); ASPARTATE AMINO TRANSFERASE 28 Units/L (15-37); BLOOD UREA NITROGEN 31 mg/dL (7-18); CALCIUM 8.5 mg/dL (8.5-10.1); CARBON DIOXIDE 23.6 mmol/L (21-32); CHLORIDE 104 mmol/L (98-107); CKMB % 4.3 % (<4); COR CA(FOR HYPOALB) 9.3 mg/dL (8.5-10.1); COR NA(FOR HYPERGLY) 140 mmol/L (136-145); CREATINE KINASE 54 Units/L (26-192); CREATINE KINASE MB 2.3 ng/mL (0-4.0); CREATININE 0.79 mg/dL (0.55-1.02); SODIUM 139 mmol/L (136-145); TOTAL PROTEIN 7.2 g/dL (6.4-8.2); TROPONIN I 0.27 ng/mL (0-1.5); eGFR NON BLACK RACES > 60 (>60)
[2020-07-18 05:41] LABS: APPEARANCE,URINE CLEAR (CLEAR); BACTERIA,URINE NEGATIVE /HPF (NEGATIVE); COLOR,URINE YELLOW (YELLOW); MUCUS,URINE MODERATE /HPF (NEGATIVE); RBC,URINE NONE SEEN /HPF (0-3); SQUAMOUS EPITHELIAL CELL,UR RARE /HPF (NEGATIVE)
[2020-07-18] MEDS: CARDIZEM INJ 125 MG VIAL 125 MG in NS 100 ML IV 100 ML IV PRN ×2 (08:33→18:00)
[2020-07-18] MEDS: LOVENOX INJ 40 MG SYR SC SCH (09:08)
--- NOTE | 2020-07-18 11:24 | DR.H&P ---
H&P - History & Physical for Day of: H&P Date: 07/17/20 - Chief Complaint Chief Complaint: DIZZINESS, RUTH - History of Present Illness History of Present Illness: patient presents with the complaint of continued and persistent tachycardia and weakness. patient notes that she has had a hard time walking to the bathroom without shortness of breath and palpitations. Notes that she had aortic valve surgery about 2 weeks ago at [facility] in [place]. - Past Medical History Past Medical History: Hypertension, Dyslipidemia, Anxiety, CVA, Arthritis Additional Medical History: Diverticulosis, Muscle Weakness - Past Surgical History Surgical History: Bowel Resection, Cholecystectomy, Hysterectomy, Ortho Surgery Additional Surgical History: Heart Cath, Tubal Ligation, Breast Biopsies, Lumpectomy - Family History Family Medical History: [place], Coronary Artery Disease, Hypertension - Social History Does patient currently use any type of tobacco product: No Have you used tobacco products in the last 12 months: No Type of Tobacco Use: None Does any household member use tobacco: No Alcohol Use: None Drug Use: None - Medications Home Medications: codeine Allergy (Verified 03/16/18 16:45) levofloxacin [From Levaquin] Allergy (Verified 03/16/18 16:45) Sulfa (Sulfonamide Antibiotics) [SULFA] Allergy (Verified 03/16/18 16:45) CONTINUE taking the following medications metoprolol succinate 50 mg PO HS 07/18/20 [History] olmesartan 5 mg PO DAILY 07/18/20 [History] - Review of Systems Constitutional: Weakness Eyes: No Symptoms Reported ENT: No Symptoms Reported Respiratory: SOB with Excertion Cardiovascular: Palpitations Gastrointestinal: No Symptoms Reported Genitourinary: No Symptoms Reported Musculoskeletal: No Symptoms Reported Skin: No Symptoms Reported Neurological: Weakness, Other (DIZZINESS) - Physical Exam Vital Signs: Temperature 97.7 F Pulse Rate [Left] 82 Pulse Rate [Apical] 69 Pulse Rate [Left Radial] 144 Pulse Rate 122 Respiratory Rate 19 Blood Pressure [Left Arm] 144/99 Blood Pressure [Right Arm] 125/79 Blood Pressure 125/79 O2 Sat by Pulse Oximetry 97 Oriented: Normal Ear: Normal Nose: Normal Throat: Normal Respiratory: RLL Diminished, LLL Diminished Cardiovascular: Tachycardia : Normal Auscultation: Bowel Sounds: Normal Palpation: Normal Tenderness: Normal Skin: Normal Musculoskeletal: Normal Psychiatric: Anxiety Affect: Anxious Speech Pattern: Clear, Appropriate - Assessment/Plan (1) Atrial fib/flutter, transient Status: Acute Plan: ADMIT ICU. CARDIZEM DRIP PER PROTOCOL, STRICT I&OS. SUPPLEMENTAL O2, ANTICOAULANT THERAPY. CARDIAC MONITORING AND BP CONTROL. VERIFY HOME MEDICATIONS, SERIAL CE AND EKG (2) SOB (shortness of breath) Status: Acute (3) Essential hypertension Status: Chronic (4) History of CVA (cerebrovascular accident) Status: Chronic - Allergies Allergies/Adverse Reactions: Allergies Allergy/AdvReac Type Severity Reaction Status Date / Time codeine Allergy Verified 03/16/18 16:45 levofloxacin [From Levaquin] Allergy Verified 03/16/18 16:45 Sulfa (Sulfonamide Allergy Verified 03/16/18 16:45 Antibiotics) [SULFA]
[2020-07-18 11:55] LABS: ABG ALLEN TEST POS; ABG BASE EXCESS 1.9 mmol/L (-2.0-2.0); ABG HCO3 25.6 mmol/L (22-26)
[2020-07-18 12:27] LABS: CKMB % 3.7 % (<4); CREATINE KINASE MB 2.2 ng/mL (0-4.0); TROPONIN I 0.18 ng/mL (0-1.5)
[2020-07-18] MEDS ORDERED: DIFLUCAN PO ONE (16:43)
[2020-07-18] MEDS: MAG-OX TAB PO SCH (17:15)
[2020-07-18] MEDS: NS 1000 ML 1,000 ML IV SCH (17:15)
[2020-07-18 19:46] LABS: CKMB % 3.3 % (<4); CREATINE KINASE MB 2.5 ng/mL (0-4.0); TROPONIN I 0.14 ng/mL (0-1.5)
[2020-07-18] MEDS: TOPROL XL PO SCH (20:58)
[2020-07-18] MEDS: COLACE CAP 100 MG PO SCH (20:58)
[2020-07-18] MEDS: MILK OF MAGNESIA PO SCH (20:58)
[2020-07-19 01:46] LABS: CKMB % 3.3 % (<4); CREATINE KINASE MB 2.4 ng/mL (0-4.0); TROPONIN I 0.16 ng/mL (0-1.5)
[2020-07-19] MEDS: CARDIZEM INJ 125 MG VIAL 125 MG in NS 100 ML IV 100 ML IV PRN ×2 (05:15→18:04)
[2020-07-19] MEDS ORDERED: SYNTHROID 25 mcg TAB ONE (05:30)
[2020-07-19 07:21] LABS: BASOPHILS # (AUTO) 0.1 X10^3/uL (0.0-0.1); BASOPHILS % (AUTO) 0.8 % (0.2-1.0); EOSINOPHILS # (AUTO) 0.1 x10^3/uL (0.0-0.2); EOSINOPHILS % (AUTO) 0.9 % (0.9-2.9); HEMATOCRIT 31.9 % (36.0-47.0); HEMOGLOBIN 10.1 g/dL (12.0-16.0); LYMPHOCYTES # (AUTO) 0.8 X10^3/uL (1.3-2.9); LYMPHOCYTES % (AUTO) 10.9 % (21.0-51.0); MEAN CORPUSCULAR HEMOGLOBIN 27.2 pg (27.0-34.0); MEAN CORPUSCULAR HGB CONC 31.6 g/dL (33.0-35.0); MEAN CORPUSCULAR VOLUME 85.9 fL (80.0-100.0); MEAN PLATELET VOLUME 9.1 fL (7.4-11.0); MONOCYTES # (AUTO) 0.5 x10^3/uL (0.3-0.8); MONOCYTES % (AUTO) 7.1 % (0.0-13.0); NEUTROPHILS # (AUTO) 5.6 x10^3/uL (2.2-4.8); NEUTROPHILS % (AUTO) 80.3 % (42.0-75.0); PLATELET COUNT 357 X10^3/uL (150.0-450.0); RED BLOOD COUNT 3.71 X10^6/uL (3.5-5.4); RED CELL DISTRIBUTION WIDTH 14.8 % (11.6-16.5); WHITE BLOOD COUNT 6.9 X10^3/uL (3.6-10.0)
[2020-07-19 07:32] LABS: ALANINE AMINOTRANSFERASE 47 Units/L (12-78); ALKALINE PHOSPHATASE 80 Units/L (46-116); ASPARTATE AMINO TRANSFERASE 37 Units/L (15-37); BLOOD UREA NITROGEN 27 mg/dL (7-18); CALCIUM 8.4 mg/dL (8.5-10.1); CARBON DIOXIDE 24.8 mmol/L (21-32); CHLORIDE 104 mmol/L (98-107); COR CA(FOR HYPOALB) 9.2 mg/dL (8.5-10.1); COR NA(FOR HYPERGLY) 139 mmol/L (136-145); CREATININE 0.78 mg/dL (0.55-1.02); SODIUM 138 mmol/L (136-145); TOTAL PROTEIN 7.2 g/dL (6.4-8.2); eGFR NON BLACK RACES > 60 (>60)
[2020-07-19] MEDS: NS 1000 ML 1,000 ML IV SCH ×3 (07:33→12:24)
[2020-07-19 07:54] LABS: CKMB % 2.8 % (<4); CREATINE KINASE MB 2.1 ng/mL (0-4.0)
[2020-07-19 08:08] LABS: TROPONIN I 0.13 ng/mL (0-1.5)
[2020-07-19] MEDS: LOVENOX INJ 40 MG SYR SC SCH (08:20)
[2020-07-19] MEDS: TYLENOL 325 MG TAB PO PRN (08:21)
[2020-07-19] MEDS ORDERED: XOPENEX 1.25 MG/3 ML NEBULE NEB ONE ×2 (10:55→20:00)
[2020-07-19] MEDS: XOPENEX 1.25 MG/3 ML NEBULE NEB SCH ×4 (10:59→21:20)
--- NOTE | 2020-07-19 12:19 | RAD ---
HISTORYHistory of CHFSTUDYCHEST, 1 [id number]/07/2021FINDINGSCardiac silhouette is enlarged. Postoperative changes of TAVR. Small bilateral pleural effusions are increased. There also increased bibasilar airspace opacities. No evidence of pneumothorax.IMPRESSIONWorsening CHF/volume overload with increased pulmonary edema and slight increase in effusions.Electronically signed by: Marbin Barrett (July 19, 2020 12:17:11)
[2020-07-19] MEDS: LASIX IVP SCH ×2 (13:39→20:22)
[2020-07-19] MEDS: MAG-OX TAB PO SCH (17:42)
[2020-07-19] MEDS: SYNTHROID 25 mcg TAB PO SCH (18:31)
[2020-07-19] MEDS: TOPROL XL PO SCH (20:22)
[2020-07-19] MEDS: COLACE CAP 100 MG PO SCH (20:22)
[2020-07-19] MEDS: MILK OF MAGNESIA PO SCH (20:22)
[2020-07-20] MEDS: NS 1000 ML 1,000 ML IV SCH ×3 (03:09→21:33)
[2020-07-20] MEDS: CARDIZEM INJ 125 MG VIAL 125 MG in NS 100 ML IV 100 ML IV PRN (05:00)
[2020-07-20 05:29] LABS: BASOPHILS % (AUTO) 0.7 % (0.2-1.0); EOSINOPHILS # (AUTO) 0.2 x10^3/uL (0.0-0.2); EOSINOPHILS % (AUTO) 2.4 % (0.9-2.9); HEMATOCRIT 29.2 % (36.0-47.0); HEMOGLOBIN 9.4 g/dL (12.0-16.0); LYMPHOCYTES # (AUTO) 0.8 X10^3/uL (1.3-2.9); LYMPHOCYTES % (AUTO) 13.1 % (21.0-51.0); MEAN CORPUSCULAR HEMOGLOBIN 27.4 pg (27.0-34.0); MEAN CORPUSCULAR VOLUME 85.8 fL (80.0-100.0); MEAN PLATELET VOLUME 9.3 fL (7.4-11.0); MONOCYTES # (AUTO) 0.4 x10^3/uL (0.3-0.8); NEUTROPHILS % (AUTO) 76.8 % (42.0-75.0); PLATELET COUNT 301 X10^3/uL (150.0-450.0); RED BLOOD COUNT 3.41 X10^6/uL (3.5-5.4); RED CELL DISTRIBUTION WIDTH 14.8 % (11.6-16.5); WHITE BLOOD COUNT 6.5 X10^3/uL (3.6-10.0)
[2020-07-20 05:36] LABS: ALANINE AMINOTRANSFERASE 40 Units/L (12-78); ALBUMIN 2.7 g/dL (3.4-5.0); ALKALINE PHOSPHATASE 74 Units/L (46-116); ASPARTATE AMINO TRANSFERASE 27 Units/L (15-37); BLOOD UREA NITROGEN 20 mg/dL (7-18); CALCIUM 8.2 mg/dL (8.5-10.1); CARBON DIOXIDE 28.6 mmol/L (21-32); CHLORIDE 102 mmol/L (98-107); COR CA(FOR HYPOALB) 9.2 mg/dL (8.5-10.1); COR NA(FOR HYPERGLY) 137 mmol/L (136-145); CREATININE 0.71 mg/dL (0.55-1.02); MAGNESIUM 1.5 mg/dL (1.7-2.9); SODIUM 137 mmol/L (136-145); TOTAL PROTEIN 6.8 g/dL (6.4-8.2); eGFR NON BLACK RACES > 60 (>60)
[2020-07-20] MEDS: SYNTHROID 25 mcg TAB PO SCH (06:52)
--- NOTE | 2020-07-20 07:28 | RAD ---
HISTORYCHFSTUDYCHEST, 1 [id number]/09/2021.TECHNIQUEAP view of the chestFINDINGSCardiac valve replacement is noted. Cardiac and mediastinal contours are within normal limits. Mild improvement in multifocal bilateral hazy lung opacities. Blunted costophrenic sulci remain consistent with small pleural effusions. No discernible pneumothorax.IMPRESSIONMild improvement in pulmonary edema. Small pleural effusions remain.Electronically signed by: Tahir Markham (July 20, 2020 07:25:53)
[2020-07-20] MEDS: LOVENOX INJ 40 MG SYR SC SCH (08:35)
[2020-07-20] MEDS: TYLENOL 325 MG TAB PO PRN ×2 (08:36→23:14)
[2020-07-20] MEDS: XOPENEX 1.25 MG/3 ML NEBULE NEB SCH ×4 (08:37→20:40)
--- NOTE | 2020-07-20 13:20 | PCM.PROG ---
Progress Note - Progress Note for Day of Date of Exam: 07/20/20 - Subjective Subjective: Mrs. Gonsales is a 79-year-old white female, patient of [facility], admitted with complaints of palpitations and shortness of breath status post aortic valve replacement approximately two weeks ago. She was noted to be in atrial fibrillation, atrial flutter. The patient was started on a Cardizem drip. Her home Toprol had been resumed. She is alert and oriented, sitting up in bed on morning rounds. She complains of generalized weakness today. On examination, the patient continues with controlled rate, but irregular rhythm. Bilateral lungs are noted with diminished lung sounds throughout. Abdomen is round, soft, and non-tender with normal bowel sounds noted in all quadrants. Her vitals this morning are: 99.1-83-20-99%nc-160/75. Labs were obtained. Abnormal lab values include the following: RBC 3.41, HGB 9.4, HCT 29.2, POTASSIUM 3.4, BUN 20, GLUCOSE 116, CALCIUM 8.2, MAGNESIUM 1.5, ALBUMIN 2.7. CARDIAC ENZYMES HAVE BEEN WITHIN NORMAL LIMITS. A chest xray was obtained today and revealed: Mild improvement in pulmonary edema. Small pleural effusions remain. She is currently receiving normal saline at kvo, Cardizem drip, metoprolol succinate 25mg po HS, lovenox 40mg sc daily, synthroid 25mg po daily, milk of magnesia 30ml po HS, mag ox 200mg po daily, Colace 100mg po HS. Staff reports that patient is unsteady on ambulation. We will hae physical therapy evaluate her to day. Family wishes for patient to have physical therapy and occupational therapy. The patient does have a Temple catheter in for strict I&Os. We will continue to monitor output. We will continue with current plan of care today. Otherwise, we will follow up with AM labs and continue to monitor. Time spent on clinical assessment, reviewing labs and imaging, decision making, and documentation greater than 45 minutes. - Past Medical Family Social History Past Med/Fam/Surg Hx: No changes since H&P Allergies: Allergies codeine Allergy (Verified 03/16/18 16:45) levofloxacin [From Levaquin] Allergy (Verified 03/16/18 16:45) Sulfa (Sulfonamide Antibiotics) [SULFA] Allergy (Verified 03/16/18 16:45) - Review of Systems ROS: No change since H&P - Vital Signs and I&O's Vital Signs: Temperature 97.6 F Pulse Rate [Left] 88 Pulse Rate [Apical] 69 Pulse Rate [Left Radial] 144 Pulse Rate 95 Respiratory Rate 22 Blood Pressure [Left Arm] 146/71 Blood Pressure [Right Arm] 125/79 Blood Pressure 125/79 O2 Sat by Pulse Oximetry 99 Intake and Output: Intake & Output 07/18/20 07/19/20 07/20/20 07/21/20 11:59 11:59 11:59 11:59 Intake Total 828 / 828 2952 / 2952 2947 / 2947 Output Total 100 / 100 450 / 450 2475 / 2475 Balance 728 / 728 2502 / 2502 472 / 472 - Physical Exam Oriented: Normal Eyes: Normal Ear: Normal Nose: Normal Throat: Normal Respiratory: Generalized, Diminished Cardiovascular: Normal, Irregular : Normal Auscultation: Bowel Sounds: Normal Palpation: Normal Tenderness: Normal Skin: Normal Musculoskeletal: Normal Psychiatric: Anxiety Affect: Anxious Speech Pattern: Clear, Appropriate - Laboratory and Diagnostics Result Diagrams: 07/20/20 04:39 07/20/20 04:39 Labs: Laboratory WBC 6.5 X10^3/uL (3.6-10.0) 07/20/20 04:39 RBC 3.41 X10^6/uL (3.5-5.4) L 07/20/20 04:39 Hgb 9.4 g/dL (12.0-16.0) L 07/20/20 04:39 Hct 29.2 % (36.0-47.0) L 07/20/20 04:39 MCV 85.8 fL (80.0-100.0) 07/20/20 04:39 MCH 27.4 pg (27.0-34.0) 07/20/20 04:39 MCHC 32.0 g/dL (33.0-35.0) L 07/20/20 04:39 RDW 14.8 % (11.6-16.5) 07/20/20 04:39 Plt Count 301 X10^3/uL (150.0-450.0) 07/20/20 04:39 MPV 9.3 fL (7.4-11.0) 07/20/20 04:39 Neut % (Auto) 76.8 % (42.0-75.0) H 07/20/20 04:39 Lymph % (Auto) 13.1 % (21.0-51.0) L 07/20/20 04:39 [place] % (Auto) 7.0 % (0.0-13.0) 07/20/20 04:39 Eos % (Auto) 2.4 % (0.9-2.9) 07/20/20 04:39 Baso % (Auto) 0.7 % (0.2-1.0) 07/20/20 04:39 Neut # (Auto) 5.0 x10^3/uL (2.2-4.8) H 07/20/20 04:39 Lymph # (Auto) 0.8 X10^3/uL (1.3-2.9) L 07/20/20 04:39 [place] # (Auto) 0.4 x10^3/uL (0.3-0.8) 07/20/20 04:39 Eos # (Auto) 0.2 x10^3/uL (0.0-0.2) 07/20/20 04:39 Baso # (Auto) 0.0 X10^3/uL (0.0-0.1) 07/20/20 04:39 Absolute Nucleated RBC 0.0 /100WBC 07/20/20 04:39 PT 14.2 SECONDS (11.8-14.3) 07/17/20 15:48 INR Target Range - 07/17/20 15:48 INR 1.15 (0.8-1.3) 07/17/20 15:48 APTT 28.8 SECONDS (22.9-36.5) 07/17/20 15:48 PTT Comment - 07/17/20 15:48 Sample Site Rrad 07/18/20 11:49 ABG pH 7.460 (7.35-7.45) H 07/18/20 11:49 ABG pCO2 36.0 mmHg (35.0-45.0) 07/18/20 11:49 ABG pO2 67.0 mmHg (80.0-100.0) L 07/18/20 11:49 ABG HCO3 25.6 mmol/L (22-26) 07/18/20 11:49 ABG O2 Saturation 94.0 % (90-100) 07/18/20 11:49 ABG Base Excess 1.9 mmol/L (-2.0-2.0) 07/18/20 11:49 Cole Test Pos 07/18/20 11:49 A-a Gradient 38.0 mmHg 07/18/20 11:49 FiO2 21.0 07/18/20 11:49 Blood Gas Comments Pt gustavo well elj cdn 07/18/20 11:49 Sodium 137 mmol/L (136-145) 07/20/20 04:39 Corrected Sodium 137 mmol/L (136-145) 07/20/20 04:39 Potassium 3.4 mmol/L (3.5-5.1) L 07/20/20 04:39 Chloride 102 mmol/L (98-107) 07/20/20 04:39 Carbon Dioxide 28.6 mmol/L (21-32) 07/20/20 04:39 BUN 20 mg/dL (7-18) H 07/20/20 04:39 Creatinine 0.71 mg/dL (0.55-1.02) 07/20/20 04:39 Est GFR (MDRD) Af Amer > 60 (>60) 07/20/20 04:39 Est GFR (MDRD) Non-Af > 60 (>60) 07/20/20 04:39 Glucose 116 mg/dL (65-99) H 07/20/20 04:39 POC Glucose (mg/dL) 107 mg/dL (65-99) H 07/18/20 11:33 Calcium 8.2 mg/dL (8.5-10.1) L 07/20/20 04:39 Corrected Calcium 9.2 mg/dL (8.5-10.1) 07/20/20 04:39 Magnesium 1.5 mg/dL (1.7-2.9) L 07/20/20 04:39 Total Bilirubin 0.60 mg/dL (0.2-1.0) 07/20/20 04:39 AST 27 Units/L (15-37) 07/20/20 04:39 ALT 40 Units/L (12-78) 07/20/20 04:39 Alkaline Phosphatase 74 Units/L (46-116) 07/20/20 04:39 Creatine Kinase 74 Units/L (26-192) 07/19/20 07:05 CK-MB (CK-2) 2.1 ng/mL (0-4.0) 07/19/20 07:05 CK/CKMB % Calc 2.8 % (<4) 07/19/20 07:05 Troponin I 0.13 ng/mL (0-1.5) 07/19/20 07:05 Total Protein 6.8 g/dL (6.4-8.2) 07/20/20 04:39 Albumin 2.7 g/dL (3.4-5.0) L 07/20/20 04:39 Globulin 4.1 g/dL (2.5-4.5) 07/20/20 04:39 Albumin/Globulin Ratio 0.7 Ratio (1.1-2.1) L 07/20/20 04:39 Specimen Type Catherized urine 07/18/20 04:50 Urine Color Yellow (YELLOW) 07/18/20 04:50 Urine Appearance Clear (CLEAR) 07/18/20 04:50 Urine pH 5.0 (5.0 - 8.0) 07/18/20 04:50 Ur Specific [place] 1.025 (1.000-1.030) 07/18/20 04:50 Urine Protein 2+ (NEGATIVE) 07/18/20 04:50 Urine Glucose (UA) Negative (NEGATIVE) 07/18/20 04:50 Urine Ketones Negative (NEGATIVE) 07/18/20 04:50 Urine Occult Blood Negative (NEGATIVE) 07/18/20 04:50 Urine Nitrite Negative (NEGATIVE) 07/18/20 04:50 Urine Bilirubin Negative (NEGATIVE) 07/18/20 04:50 Urine Urobilinogen Normal (NORMAL) 07/18/20 04:50 Ur Leukocyte Esterase Negative (NEGATIVE) 07/18/20 04:50 Urine RBC None seen /HPF (0-3) 07/18/20 04:50 Urine WBC None seen /HPF (0-5) 07/18/20 04:50 Ur Squamous Epith Cells Rare /HPF (NEGATIVE) 07/18/20 04:50 Urine Bacteria Negative /HPF (NEGATIVE) 07/18/20 04:50 Urine Mucus Moderate /HPF (NEGATIVE) 07/18/20 04:50 Ur Culture Indicated? No/not indicated 07/18/20 04:50 - Plan (1) Atrial fib/flutter, transient Status: Acute Plan: CARDIZEM DRIP PER PROTOCOL, STRICT I&OS. SUPPLEMENTAL O2, ANTICOAULANT THERAPY. CARDIAC MONITORING AND BP CONTROL (2) SOB (shortness of breath) Status: Acute
[2020-07-20] MEDS: MAG-OX TAB PO SCH (17:19)
[2020-07-20] MEDS: COLACE CAP 100 MG PO SCH (20:30)
[2020-07-20] MEDS: TOPROL XL PO SCH (20:30)
[2020-07-20] MEDS: MILK OF MAGNESIA PO SCH (21:32)
[2020-07-21] MEDS: CARDIZEM INJ 125 MG VIAL 125 MG in NS 100 ML IV 100 ML IV PRN ×2 (00:15→19:30)
[2020-07-21] MEDS: NS 1000 ML 1,000 ML IV SCH ×2 (00:17→18:16)
[2020-07-21 05:30] LABS: BASOPHILS % (AUTO) 0.5 % (0.2-1.0); EOSINOPHILS # (AUTO) 0.2 x10^3/uL (0.0-0.2); EOSINOPHILS % (AUTO) 3.9 % (0.9-2.9); HEMATOCRIT 28.4 % (36.0-47.0); HEMOGLOBIN 9.1 g/dL (12.0-16.0); LYMPHOCYTES # (AUTO) 0.8 X10^3/uL (1.3-2.9); LYMPHOCYTES % (AUTO) 12.9 % (21.0-51.0); MEAN CORPUSCULAR HEMOGLOBIN 27.7 pg (27.0-34.0); MEAN CORPUSCULAR HGB CONC 32.1 g/dL (33.0-35.0); MEAN CORPUSCULAR VOLUME 86.1 fL (80.0-100.0); MEAN PLATELET VOLUME 9.3 fL (7.4-11.0); MONOCYTES # (AUTO) 0.5 x10^3/uL (0.3-0.8); MONOCYTES % (AUTO) 7.7 % (0.0-13.0); NEUTROPHILS # (AUTO) 4.6 x10^3/uL (2.2-4.8); PLATELET COUNT 268 X10^3/uL (150.0-450.0); WHITE BLOOD COUNT 6.1 X10^3/uL (3.6-10.0)
[2020-07-21 05:34] LABS: ALANINE AMINOTRANSFERASE 38 Units/L (12-78); ALBUMIN 2.5 g/dL (3.4-5.0); ALKALINE PHOSPHATASE 76 Units/L (46-116); ASPARTATE AMINO TRANSFERASE 23 Units/L (15-37); BLOOD UREA NITROGEN 19 mg/dL (7-18); CALCIUM 8.3 mg/dL (8.5-10.1); CARBON DIOXIDE 28.7 mmol/L (21-32); CHLORIDE 104 mmol/L (98-107); COR CA(FOR HYPOALB) 9.5 mg/dL (8.5-10.1); COR NA(FOR HYPERGLY) 138 mmol/L (136-145); CREATININE 0.63 mg/dL (0.55-1.02); SODIUM 138 mmol/L (136-145); TOTAL PROTEIN 6.5 g/dL (6.4-8.2); eGFR NON BLACK RACES > 60 (>60)
[2020-07-21] MEDS: SYNTHROID 25 mcg TAB PO SCH (06:17)
[2020-07-21] MEDS: TYLENOL 325 MG TAB PO PRN (08:30)
[2020-07-21] MEDS: XOPENEX 1.25 MG/3 ML NEBULE NEB SCH ×4 (09:21→20:39)
[2020-07-21] MEDS: LOVENOX INJ 40 MG SYR SC SCH (10:48)
[2020-07-21] MEDS: CARDIZEM CD 120 MG 24-HR PO SCH (10:48)
[2020-07-21] MEDS: COLACE CAP 100 MG PO SCH ×2 (10:48→20:54)
[2020-07-21] MEDS: MILK OF MAGNESIA PO SCH ×2 (10:49→20:54)
--- NOTE | 2020-07-21 12:52 | PCM.PROG ---
Progress Note - Progress Note for Day of Date of Exam: 07/21/20 - Subjective Subjective: Mrs. Gonsales is a 79-year-old white female, patient of [facility], admitted with complaints of palpitations and shortness of breath status post aortic valve replacement approximately two weeks ago. She was noted to be in atrial fibrillation, atrial flutter on admission. The patient was started on a Cardizem drip. Her home Toprol had been resumed. She remains on the Cardizem drip this morning. She is alert and oriented, sitting up in bed on morning rounds. She continues with complaints of generalized weakness today. On examination, she is noted to be tachycardic with heart rate in the 120s, irregular rhythm. Bilateral lungs are noted with diminished lung sounds throughout. Abdomen is round, soft, and non-tender with normal bowel sounds noted in all quadrants. Her vitals this morning are: 99.5-124-26-97%-129/89. Labs were obtained. Abnormal lab values include the following: RBC 3.30, HGB 9.1, HCT 28.4, BUN 19, GLUCOSE 119, CALCIUM 8.3, ALBUMIN 2.5. CARDIAC ENZYMES HAVE BEEN WITHIN NORMAL LIMITS. She is currently receiving normal saline at kvo, Cardizem drip, metoprolol succinate 25mg po HS, lovenox 40mg sc daily, synthroid 25mg po daily, milk of magnesia 30ml po HS, mag ox 200mg po daily, Colace 100mg po HS. Physical therapy has evaluated and is working with patient. Family wishes for patient to have physical therapy and occupational therapy. The patient does have a Temple catheter in for strict I&Os. We will continue to monitor output. Today, we will add Cardizem cd 120mg po daily and discontinue the Cardizem drip. Otherwise, we will continue with current plan of care today. We will follow up with AM labs and continue to monitor. Time spent on clinical assessment, reviewing labs and imaging, decision making, and documentation greater than 45 minutes. - Past Medical Family Social History Past Med/Fam/Surg Hx: No changes since H&P Allergies: Allergies codeine Allergy (Verified 03/16/18 16:45) levofloxacin [From Levaquin] Allergy (Verified 03/16/18 16:45) Sulfa (Sulfonamide Antibiotics) [SULFA] Allergy (Verified 03/16/18 16:45) - Review of Systems ROS: No change since H&P - Vital Signs and I&O's Vital Signs: Temperature 99.5 F Pulse Rate [Left] 98 Pulse Rate [Apical] 69 Pulse Rate [Left Radial] 144 Pulse Rate 104 Respiratory Rate 18 Blood Pressure [Left Arm] 149/70 Blood Pressure [Right Arm] 129/89 Blood Pressure 141/93 O2 Sat by Pulse Oximetry 97 Intake and Output: Intake & Output 07/19/20 07/20/20 07/21/20 07/22/20 11:59 11:59 11:59 11:59 Intake Total 2952 / 2952 2947 / 2947 2214 / 2214 Output Total 450 / 450 2475 / 2475 675 / 675 Balance 2502 / 2502 472 / 472 1539 / 1539 - Physical Exam Oriented: Normal Eyes: Normal Ear: Normal Nose: Normal Throat: Normal Respiratory: Generalized, Diminished Cardiovascular: Tachycardia, Irregular : Normal Auscultation: Bowel Sounds: Normal Palpation: Normal Tenderness: Normal Skin: Normal Musculoskeletal: Normal Psychiatric: Anxiety Affect: Anxious Speech Pattern: Clear, Appropriate - Laboratory and Diagnostics Result Diagrams: 07/21/20 04:38 07/21/20 04:38 Labs: Laboratory WBC 6.1 X10^3/uL (3.6-10.0) 07/21/20 04:38 RBC 3.30 X10^6/uL (3.5-5.4) L 07/21/20 04:38 Hgb 9.1 g/dL (12.0-16.0) L 07/21/20 04:38 Hct 28.4 % (36.0-47.0) L 07/21/20 04:38 MCV 86.1 fL (80.0-100.0) 07/21/20 04:38 MCH 27.7 pg (27.0-34.0) 07/21/20 04:38 MCHC 32.1 g/dL (33.0-35.0) L 07/21/20 04:38 RDW 15.0 % (11.6-16.5) 07/21/20 04:38 Plt Count 268 X10^3/uL (150.0-450.0) 07/21/20 04:38 MPV 9.3 fL (7.4-11.0) 07/21/20 04:38 Neut % (Auto) 75.0 % (42.0-75.0) 07/21/20 04:38 Lymph % (Auto) 12.9 % (21.0-51.0) L 07/21/20 04:38 [place] % (Auto) 7.7 % (0.0-13.0) 07/21/20 04:38 Eos % (Auto) 3.9 % (0.9-2.9) H 07/21/20 04:38 Baso % (Auto) 0.5 % (0.2-1.0) 07/21/20 04:38 Neut # (Auto) 4.6 x10^3/uL (2.2-4.8) 07/21/20 04:38 Lymph # (Auto) 0.8 X10^3/uL (1.3-2.9) L 07/21/20 04:38 [place] # (Auto) 0.5 x10^3/uL (0.3-0.8) 07/21/20 04:38 Eos # (Auto) 0.2 x10^3/uL (0.0-0.2) 07/21/20 04:38 Baso # (Auto) 0.0 X10^3/uL (0.0-0.1) 07/21/20 04:38 Absolute Nucleated RBC 0.0 /100WBC 07/21/20 04:38 PT 14.2 SECONDS (11.8-14.3) 07/17/20 15:48 INR Target Range - 07/17/20 15:48 INR 1.15 (0.8-1.3) 07/17/20 15:48 APTT 28.8 SECONDS (22.9-36.5) 07/17/20 15:48 PTT Comment - 07/17/20 15:48 Sample Site Rrad 07/18/20 11:49 ABG pH 7.460 (7.35-7.45) H 07/18/20 11:49 ABG pCO2 36.0 mmHg (35.0-45.0) 07/18/20 11:49 ABG pO2 67.0 mmHg (80.0-100.0) L 07/18/20 11:49 ABG HCO3 25.6 mmol/L (22-26) 07/18/20 11:49 ABG O2 Saturation 94.0 % (90-100) 07/18/20 11:49 ABG Base Excess 1.9 mmol/L (-2.0-2.0) 07/18/20 11:49 Cole Test Pos 07/18/20 11:49 A-a Gradient 38.0 mmHg 07/18/20 11:49 FiO2 21.0 07/18/20 11:49 Blood Gas Comments Pt gustavo well elj cdn 07/18/20 11:49 Sodium 138 mmol/L (136-145) 07/21/20 04:38 Corrected Sodium 138 mmol/L (136-145) 07/21/20 04:38 Potassium 3.6 mmol/L (3.5-5.1) 07/21/20 04:38 Chloride 104 mmol/L (98-107) 07/21/20 04:38 Carbon Dioxide 28.7 mmol/L (21-32) 07/21/20 04:38 BUN 19 mg/dL (7-18) H 07/21/20 04:38 Creatinine 0.63 mg/dL (0.55-1.02) 07/21/20 04:38 Est GFR (MDRD) Af Amer > 60 (>60) 07/21/20 04:38 Est GFR (MDRD) Non-Af > 60 (>60) 07/21/20 04:38 Glucose 119 mg/dL (65-99) H 07/21/20 04:38 POC Glucose (mg/dL) 107 mg/dL (65-99) H 07/18/20 11:33 Calcium 8.3 mg/dL (8.5-10.1) L 07/21/20 04:38 Corrected Calcium 9.5 mg/dL (8.5-10.1) 07/21/20 04:38 Magnesium 1.5 mg/dL (1.7-2.9) L 07/20/20 04:39 Total Bilirubin 0.30 mg/dL (0.2-1.0) 07/21/20 04:38 AST 23 Units/L (15-37) 07/21/20 04:38 ALT 38 Units/L (12-78) 07/21/20 04:38 Alkaline Phosphatase 76 Units/L (46-116) 07/21/20 04:38 Creatine Kinase 74 Units/L (26-192) 07/19/20 07:05 CK-MB (CK-2) 2.1 ng/mL (0-4.0) 07/19/20 07:05 CK/CKMB % Calc 2.8 % (<4) 07/19/20 07:05 Troponin I 0.13 ng/mL (0-1.5) 07/19/20 07:05 Total Protein 6.5 g/dL (6.4-8.2) 07/21/20 04:38 Albumin 2.5 g/dL (3.4-5.0) L 07/21/20 04:38 Globulin 4.0 g/dL (2.5-4.5) 07/21/20 04:38 Albumin/Globulin Ratio 0.6 Ratio (1.1-2.1) L 07/21/20 04:38 Specimen Type Catherized urine 07/18/20 04:50 Urine Color Yellow (YELLOW) 07/18/20 04:50 Urine Appearance Clear (CLEAR) 07/18/20 04:50 Urine pH 5.0 (5.0 - 8.0) 07/18/20 04:50 Ur Specific [place] 1.025 (1.000-1.030) 07/18/20 04:50 Urine Protein 2+ (NEGATIVE) 07/18/20 04:50 Urine Glucose (UA) Negative (NEGATIVE) 07/18/20 04:50 Urine Ketones Negative (NEGATIVE) 07/18/20 04:50 Urine Occult Blood Negative (NEGATIVE) 07/18/20 04:50 Urine Nitrite Negative (NEGATIVE) 07/18/20 04:50 Urine Bilirubin Negative (NEGATIVE) 07/18/20 04:50 Urine Urobilinogen Normal (NORMAL) 07/18/20 04:50 Ur Leukocyte Esterase Negative (NEGATIVE) 07/18/20 04:50 Urine RBC None seen /HPF (0-3) 07/18/20 04:50 Urine WBC None seen /HPF (0-5) 07/18/20 04:50 Ur Squamous Epith Cells Rare /HPF (NEGATIVE) 07/18/20 04:50 Urine Bacteria Negative /HPF (NEGATIVE) 07/18/20 04:50 Urine Mucus Moderate /HPF (NEGATIVE) 07/18/20 04:50 Ur Culture Indicated? No/not indicated 07/18/20 04:50 - Plan (1) Atrial fib/flutter, transient Status: Acute Plan: cardizem cd 120mg po daily, metoprolol 25mg po daily, STRICT I&OS. SUPPLEMENTAL O2, ANTICOAULANT THERAPY. CARDIAC MONITORING AND BP CONTROL (2) SOB (shortness of breath) Status: Acute
--- NOTE | 2020-07-21 14:38 | RAD ---
CHEST, 1 VIEWHistory: A. FIB/FLUTTER WITH RVRComparison: 07/20/2020Findings: Accounting for AP technique and patient rotation, there is stable enlargement of the cardiac silhouette. Previous TAVR noted. There is persistent but stable interstitial edema and unchanged small bilateral pleural effusions. No pneumothorax.Impression:Stable cardiomegaly, mild pulmonary edema and small bilateral pleural effusions.Electronically signed by: PRIMITIVO SWANSON (July 21, 2020 14:36:44)
[2020-07-21] MEDS: MAG-OX TAB PO SCH (18:19)
[2020-07-21] MEDS ORDERED: CARDIZEM INJ 50 MG VIAL IVP ONE ×2 (19:14→20:31)
[2020-07-21] MEDS ORDERED: NS 100 ML IV 100 ML IV ONE (19:17)
[2020-07-21] MEDS ORDERED: CARDIZEM INJ 50 MG VIAL ONE (19:18)
[2020-07-21] MEDS ORDERED: CARDIZEM INJ 125 MG VIAL ONE (19:18)
[2020-07-21] MEDS: TOPROL XL PO SCH (21:06)
[2020-07-22] MEDS: XOPENEX 1.25 MG/3 ML NEBULE NEB SCH ×5 (00:42→20:21)
[2020-07-22] MEDS: NS 1000 ML 1,000 ML IV SCH ×2 (03:07→08:43)
[2020-07-22] MEDS: CARDIZEM INJ 125 MG VIAL 125 MG in NS 100 ML IV 100 ML IV PRN (04:28)
[2020-07-22 05:52] LABS: BASOPHILS % (AUTO) 0.5 % (0.2-1.0); EOSINOPHILS # (AUTO) 0.2 x10^3/uL (0.0-0.2); EOSINOPHILS % (AUTO) 3.3 % (0.9-2.9); HEMATOCRIT 28.3 % (36.0-47.0); HEMOGLOBIN 9.2 g/dL (12.0-16.0); LYMPHOCYTES # (AUTO) 0.7 X10^3/uL (1.3-2.9); LYMPHOCYTES % (AUTO) 11.5 % (21.0-51.0); MEAN CORPUSCULAR HEMOGLOBIN 27.8 pg (27.0-34.0); MEAN CORPUSCULAR HGB CONC 32.4 g/dL (33.0-35.0); MONOCYTES # (AUTO) 0.4 x10^3/uL (0.3-0.8); MONOCYTES % (AUTO) 7.6 % (0.0-13.0); NEUTROPHILS # (AUTO) 4.5 x10^3/uL (2.2-4.8); NEUTROPHILS % (AUTO) 77.1 % (42.0-75.0); PLATELET COUNT 279 X10^3/uL (150.0-450.0); RED BLOOD COUNT 3.29 X10^6/uL (3.5-5.4); RED CELL DISTRIBUTION WIDTH 14.8 % (11.6-16.5); WHITE BLOOD COUNT 5.9 X10^3/uL (3.6-10.0)
--- NOTE | 2020-07-22 06:04 | RAD ---
HISTORYSOBSTUDYCHEST, 1 VIEWCOMPARISONOne day prior.TECHNIQUEAP view of the chestFINDINGSThe cardiac and mediastinal contours appear stable. No significant change in diffuse bilateral hazy and interstitial lung opacities. Small bilateral pleural effusions. No discernible pneumothorax. Cardiac valve stent noted. No discernible pneumothorax.IMPRESSIONNo significant change.Electronically signed by: Tahir Markham (July 22, 2020 06:01:48)
[2020-07-22 06:10] LABS: ALANINE AMINOTRANSFERASE 38 Units/L (12-78); ALBUMIN 2.6 g/dL (3.4-5.0); ALKALINE PHOSPHATASE 85 Units/L (46-116); ASPARTATE AMINO TRANSFERASE 24 Units/L (15-37); BLOOD UREA NITROGEN 11 mg/dL (7-18); CALCIUM 8.2 mg/dL (8.5-10.1); CARBON DIOXIDE 27.6 mmol/L (21-32); CHLORIDE 104 mmol/L (98-107); COR CA(FOR HYPOALB) 9.3 mg/dL (8.5-10.1); COR NA(FOR HYPERGLY) 139 mmol/L (136-145); CREATININE 0.52 mg/dL (0.55-1.02); SODIUM 139 mmol/L (136-145); TOTAL PROTEIN 6.8 g/dL (6.4-8.2); eGFR NON BLACK RACES > 60 (>60)
[2020-07-22] MEDS: SYNTHROID 25 mcg TAB PO SCH (06:36)
[2020-07-22] MEDS: COLACE CAP 100 MG PO SCH ×2 (08:42→20:48)
[2020-07-22] MEDS: CARDIZEM CD 120 MG 24-HR PO SCH (08:42)
[2020-07-22] MEDS: LOVENOX INJ 40 MG SYR SC SCH (08:42)
[2020-07-22] MEDS: MILK OF MAGNESIA PO SCH ×2 (08:43→20:49)
[2020-07-22] MEDS ORDERED: CARDIZEM ER 60 MG 12-HR PO ONE (10:16)
[2020-07-22] MEDS: MAG-OX TAB PO SCH (16:11)
[2020-07-22] MEDS: ELIQUIS PO SCH (20:48)
[2020-07-22] MEDS: LOPRESSOR TAB 25 MG PO SCH (20:48)
[2020-07-23] MEDS: NS 1000 ML 1,000 ML IV SCH ×3 (05:41→23:18)
[2020-07-23] MEDS: SYNTHROID 25 mcg TAB PO SCH (05:42)
[2020-07-23 06:42] LABS: BASOPHILS % (AUTO) 0.6 % (0.2-1.0); EOSINOPHILS # (AUTO) 0.2 x10^3/uL (0.0-0.2); EOSINOPHILS % (AUTO) 3.7 % (0.9-2.9); HEMATOCRIT 29.3 % (36.0-47.0); HEMOGLOBIN 9.6 g/dL (12.0-16.0); LYMPHOCYTES # (AUTO) 0.7 X10^3/uL (1.3-2.9); LYMPHOCYTES % (AUTO) 12.4 % (21.0-51.0); MEAN CORPUSCULAR HEMOGLOBIN 27.9 pg (27.0-34.0); MEAN CORPUSCULAR HGB CONC 32.7 g/dL (33.0-35.0); MEAN CORPUSCULAR VOLUME 85.4 fL (80.0-100.0); MEAN PLATELET VOLUME 9.2 fL (7.4-11.0); MONOCYTES # (AUTO) 0.5 x10^3/uL (0.3-0.8); MONOCYTES % (AUTO) 8.5 % (0.0-13.0); NEUTROPHILS # (AUTO) 4.5 x10^3/uL (2.2-4.8); NEUTROPHILS % (AUTO) 74.8 % (42.0-75.0); PLATELET COUNT 263 X10^3/uL (150.0-450.0); RED BLOOD COUNT 3.43 X10^6/uL (3.5-5.4)
[2020-07-23 07:14] LABS: ALANINE AMINOTRANSFERASE 36 Units/L (12-78); ALBUMIN 2.5 g/dL (3.4-5.0); ALKALINE PHOSPHATASE 94 Units/L (46-116); ASPARTATE AMINO TRANSFERASE 30 Units/L (15-37); BLOOD UREA NITROGEN 8 mg/dL (7-18); CALCIUM 8.3 mg/dL (8.5-10.1); CARBON DIOXIDE 30.8 mmol/L (21-32); COR CA(FOR HYPOALB) 9.5 mg/dL (8.5-10.1); CREATININE 0.49 mg/dL (0.55-1.02); TOTAL PROTEIN 6.9 g/dL (6.4-8.2); eGFR NON BLACK RACES > 60 (>60)
[2020-07-23 07:24] LABS: CHLORIDE 102 mmol/L (98-107); SODIUM 139 mmol/L (136-145)
[2020-07-23] MEDS: XOPENEX 1.25 MG/3 ML NEBULE NEB SCH ×4 (08:43→21:24)
[2020-07-23] MEDS: COLACE CAP 100 MG PO SCH ×2 (08:50→23:17)
[2020-07-23] MEDS: ELIQUIS PO SCH ×2 (08:50→20:50)
[2020-07-23] MEDS: MILK OF MAGNESIA PO SCH ×2 (08:50→23:19)
[2020-07-23] MEDS: LOPRESSOR TAB 25 MG PO SCH ×2 (08:56→20:50)
[2020-07-23] MEDS ORDERED: CARDIZEM CD 180 MG 24-HR PO SCH (09:00)
[2020-07-23] MEDS ORDERED: CARDIZEM ER 60 MG 12-HR PO ONE (10:22)
[2020-07-23] MEDS: CORDARONE TAB 200 MG PO SCH ×2 (11:12→16:17)
--- NOTE | 2020-07-23 11:56 | PCM.PROG ---
Progress Note - Progress Note for Day of Date of Exam: 07/22/20 - Subjective Subjective: Mrs. Gonsales who was admitted with complaints of palpitations and shortness of breath status post aortic valve replacement approximately two weeks ago. She was noted to be in atrial fibrillation, atrial flutter on admission. The patient was started on a Cardizem drip. Her home Toprol and digoxin had been resumed. She remains on the Cardizem drip this morning. She is alert and oriented, sitting up in bed on morning rounds. She continues with complaints of generalized weakness today. On examination, she is noted to be tachycardic with heart rate in the 120s, irregular rhythm. Bilateral lungs are noted with diminished lung sounds throughout. Abdomen is round, soft, and non-tender with normal bowel sounds noted in all quadrants. Her vitals this morning are: 98.1-76-30-95%-165/78. Labs were obtained. Abnormal lab values include the following: RBC 3.29, HGB 9.2, HCT 28.3, CREATININE 0.52, GLUCOSE 117, CALCIUM 8.2, ALBUMIN 2.6, BNP 422. She is currently receiving normal saline at [facility], Cardizem drip, Cardizem cd 120mg po daily, metoprolol succinate 25mg po HS, lovenox 40mg sc daily, synthroid 25mg po daily, milk of magnesia 30ml po HS, mag ox 200mg po daily, Colace 100mg po HS. Physical therapy has evaluated and is working with patient. Family wishes for patient to have physical therapy and occupational therapy. The patient does have a Temple catheter in for strict I&Os. We will continue to monitor output. Today, we will increase the Cardizem to 180mg po daily. We will have , cloth classer, see her today. Otherwise, we will continue with current plan of care. We will follow up with AM labs and continue to monitor. Time spent on clinical assessment, reviewing labs and imaging, decision making, and documentation greater than 45 minutes. - Past Medical Family Social History Past Med/Fam/Surg Hx: No changes since H&P Allergies: Allergies codeine Allergy (Verified 03/16/18 16:45) levofloxacin [From Levaquin] Allergy (Verified 03/16/18 16:45) Sulfa (Sulfonamide Antibiotics) [SULFA] Allergy (Verified 03/16/18 16:45) - Review of Systems ROS: No change since H&P - Vital Signs and I&O's Vital Signs: Temperature 97.9 F Pulse Rate [Left] 84 Pulse Rate [Apical] 69 Pulse Rate [Left Radial] 144 Pulse Rate 124 Respiratory Rate 18 Blood Pressure [Left Arm] 165/77 Blood Pressure [Right Arm] 144/95 Blood Pressure 138/88 O2 Sat by Pulse Oximetry 99 Intake and Output: Intake & Output 07/20/20 07/21/20 07/22/20 07/23/20 11:59 11:59 11:59 11:59 Intake Total 2947 / 2947 2214 / 2214 1306 / 1306 1473 / 1473 Output Total 2475 / 2475 675 / 675 525 / 525 2049 / 2049 Balance 472 / 472 1539 / 1539 781 / 781 -577 / -577 - Physical Exam Oriented: Normal Eyes: Normal Ear: Normal Nose: Normal Throat: Normal Respiratory: Generalized, Diminished Cardiovascular: Tachycardia, Irregular : Normal Auscultation: Bowel Sounds: Normal Tenderness: Normal Skin: Normal Musculoskeletal: Normal Psychiatric: Anxiety Affect: Anxious Speech Pattern: Clear, Appropriate - Laboratory and Diagnostics Result Diagrams: 07/23/20 05:18 07/23/20 05:18 Labs: Laboratory WBC 6.0 X10^3/uL (3.6-10.0) 07/23/20 05:18 RBC 3.43 X10^6/uL (3.5-5.4) L 07/23/20 05:18 Hgb 9.6 g/dL (12.0-16.0) L 07/23/20 05:18 Hct 29.3 % (36.0-47.0) L 07/23/20 05:18 MCV 85.4 fL (80.0-100.0) 07/23/20 05:18 MCH 27.9 pg (27.0-34.0) 07/23/20 05:18 MCHC 32.7 g/dL (33.0-35.0) L 07/23/20 05:18 RDW 15.0 % (11.6-16.5) 07/23/20 05:18 Plt Count 263 X10^3/uL (150.0-450.0) 07/23/20 05:18 MPV 9.2 fL (7.4-11.0) 07/23/20 05:18 Neut % (Auto) 74.8 % (42.0-75.0) 07/23/20 05:18 Lymph % (Auto) 12.4 % (21.0-51.0) L 07/23/20 05:18 [place] % (Auto) 8.5 % (0.0-13.0) 07/23/20 05:18 Eos % (Auto) 3.7 % (0.9-2.9) H 07/23/20 05:18 Baso % (Auto) 0.6 % (0.2-1.0) 07/23/20 05:18 Neut # (Auto) 4.5 x10^3/uL (2.2-4.8) 07/23/20 05:18 Lymph # (Auto) 0.7 X10^3/uL (1.3-2.9) L 07/23/20 05:18 [place] # (Auto) 0.5 x10^3/uL (0.3-0.8) 07/23/20 05:18 Eos # (Auto) 0.2 x10^3/uL (0.0-0.2) 07/23/20 05:18 Baso # (Auto) 0.0 X10^3/uL (0.0-0.1) 07/23/20 05:18 Absolute Nucleated RBC 0.1 /100WBC 07/23/20 05:18 PT 14.2 SECONDS (11.8-14.3) 07/17/20 15:48 INR Target Range - 07/17/20 15:48 INR 1.15 (0.8-1.3) 07/17/20 15:48 APTT 28.8 SECONDS (22.9-36.5) 07/17/20 15:48 PTT Comment - 07/17/20 15:48 Sample Site Rrad 07/18/20 11:49 ABG pH 7.460 (7.35-7.45) H 07/18/20 11:49 ABG pCO2 36.0 mmHg (35.0-45.0) 07/18/20 11:49 ABG pO2 67.0 mmHg (80.0-100.0) L 07/18/20 11:49 ABG HCO3 25.6 mmol/L (22-26) 07/18/20 11:49 ABG O2 Saturation 94.0 % (90-100) 07/18/20 11:49 ABG Base Excess 1.9 mmol/L (-2.0-2.0) 07/18/20 11:49 Cole Test Pos 07/18/20 11:49 A-a Gradient 38.0 mmHg 07/18/20 11:49 FiO2 21.0 07/18/20 11:49 Blood Gas Comments Pt gustavo well elj cdn 07/18/20 11:49 Sodium 139 mmol/L (136-145) 07/23/20 05:18 Corrected Sodium TNP 07/23/20 05:18 Potassium 4.1 mmol/L (3.5-5.1) 07/23/20 05:18 Chloride 102 mmol/L (98-107) 07/23/20 05:18 Carbon Dioxide 30.8 mmol/L (21-32) 07/23/20 05:18 BUN 8 mg/dL (7-18) 07/23/20 05:18 Creatinine 0.49 mg/dL (0.55-1.02) L 07/23/20 05:18 Est GFR (MDRD) Af Amer > 60 (>60) 07/23/20 05:18 Est GFR (MDRD) Non-Af > 60 (>60) 07/23/20 05:18 Glucose 110 mg/dL (65-99) H 07/23/20 05:18 POC Glucose (mg/dL) 107 mg/dL (65-99) H 07/18/20 11:33 Calcium 8.3 mg/dL (8.5-10.1) L 07/23/20 05:18 Corrected Calcium 9.5 mg/dL (8.5-10.1) 07/23/20 05:18 Magnesium 1.5 mg/dL (1.7-2.9) L 07/20/20 04:39 Total Bilirubin 0.60 mg/dL (0.2-1.0) 07/23/20 05:18 AST 30 Units/L (15-37) 07/23/20 05:18 ALT 36 Units/L (12-78) 07/23/20 05:18 Alkaline Phosphatase 94 Units/L (46-116) 07/23/20 05:18 Creatine Kinase 74 Units/L (26-192) 07/19/20 07:05 CK-MB (CK-2) 2.1 ng/mL (0-4.0) 07/19/20 07:05 CK/CKMB % Calc 2.8 % (<4) 07/19/20 07:05 Troponin I 0.13 ng/mL (0-1.5) 07/19/20 07:05 B-Natriuretic Peptide 422 pg/mL (0-79) H 07/23/20 05:18 Total Protein 6.9 g/dL (6.4-8.2) 07/23/20 05:18 Albumin 2.5 g/dL (3.4-5.0) L 07/23/20 05:18 Globulin 4.4 g/dL (2.5-4.5) 07/23/20 05:18 Albumin/Globulin Ratio 0.6 Ratio (1.1-2.1) L 07/23/20 05:18 Specimen Type Catherized urine 07/18/20 04:50 Urine Color Yellow (YELLOW) 07/18/20 04:50 Urine Appearance Clear (CLEAR) 07/18/20 04:50 Urine pH 5.0 (5.0 - 8.0) 07/18/20 04:50 Ur Specific [place] 1.025 (1.000-1.030) 07/18/20 04:50 Urine Protein 2+ (NEGATIVE) 07/18/20 04:50 Urine Glucose (UA) Negative (NEGATIVE) 07/18/20 04:50 Urine Ketones Negative (NEGATIVE) 07/18/20 04:50 Urine Occult Blood Negative (NEGATIVE) 07/18/20 04:50 Urine Nitrite Negative (NEGATIVE) 07/18/20 04:50 Urine Bilirubin Negative (NEGATIVE) 07/18/20 04:50 Urine Urobilinogen Normal (NORMAL) 07/18/20 04:50 Ur Leukocyte Esterase Negative (NEGATIVE) 07/18/20 04:50 Urine RBC None seen /HPF (0-3) 07/18/20 04:50 Urine WBC None seen /HPF (0-5) 07/18/20 04:50 Ur Squamous Epith Cells Rare /HPF (NEGATIVE) 07/18/20 04:50 Urine Bacteria Negative /HPF (NEGATIVE) 07/18/20 04:50 Urine Mucus Moderate /HPF (NEGATIVE) 07/18/20 04:50 Ur Culture Indicated? No/not indicated 07/18/20 04:50 - Plan (1) Atrial fib/flutter, transient Status: Acute Plan: cardizem cd 180mg po daily, metoprolol 25mg po daily, STRICT I&OS. SUPPLEMENTAL O2, ANTICOAULANT THERAPY. CARDIAC MONITORING AND BP CONTROL3. cardiology consult (2) SOB (shortness of breath) Status: Acute
[2020-07-23] MEDS: TYLENOL 325 MG TAB PO PRN (12:26)
--- NOTE | 2020-07-23 13:56 | PCM.PROG ---
Progress Note - Progress Note for Day of Date of Exam: 07/23/20 - Subjective Subjective: Mrs. Gonsales who was admitted with complaints of palpitations and shortness of breath status post aortic valve replacement approximately two weeks ago. She was noted to be in atrial fibrillation, atrial flutter on admission. The patient was started on a Cardizem drip. Her home Toprol and digoxin had been resumed. She remains on the Cardizem drip this morning. She is alert and oriented, sitting up in bed on morning rounds. She continues with complaints of generalized weakness today. On examination, she is noted to be tachycardic with heart rate in the 120s, irregular rhythm. Bilateral lungs are noted with diminished lung sounds throughout. Abdomen is round, soft, and non-tender with normal bowel sounds noted in all quadrants. Her vitals this morning are: 98.1-140-23-99%-188/135. Labs were obtained. Abnormal lab values include the following: RBC 3.43, HGB 9.6, HCT 29.3, BUN 0.49, GLUCOSE 110, CALCIUM 8.3, BNP 422, ALBUMIN 2.5. saw patient yesterday. He discontinued the lovenox and added Eliquis 5mg po BID and increased Lopressor to 25mg po BID. She is currently receiving normal saline at [facility], Cardizem drip, Cardizem cd 180mg po daily, Lopressor 25mg po bid, eliquis 5mg po bid, synthroid 25mg po daily, milk of magnesia 30ml po HS, mag ox 200mg po daily, Colace 100mg po HS. Physical therapy has evaluated and is working with patient. Family wishes for patient to have physical therapy and occupational therapy. Today, we will increase the Cardizem to 240mg po daily. Otherwise, we will continue with current plan of care. We will follow up with AM labs and continue to monitor. Time spent on clinical assessment, reviewing labs and imaging, decision making, and documentation greater than 45 minutes. - Past Medical Family Social History Past Med/Fam/Surg Hx: No changes since H&P Allergies: Allergies codeine Allergy (Verified 03/16/18 16:45) levofloxacin [From Levaquin] Allergy (Verified 03/16/18 16:45) Sulfa (Sulfonamide Antibiotics) [SULFA] Allergy (Verified 03/16/18 16:45) - Review of Systems ROS: No change since H&P - Vital Signs and I&O's Vital Signs: Temperature 99.1 F Pulse Rate [Left] 84 Pulse Rate [Apical] 69 Pulse Rate [Left Radial] 144 Pulse Rate 101 Respiratory Rate 30 Blood Pressure [Left Arm] 165/77 Blood Pressure [Right Arm] 144/95 Blood Pressure 164/98 O2 Sat by Pulse Oximetry 98 Intake and Output: Intake & Output 07/21/20 07/22/20 07/23/20 07/24/20 11:59 11:59 11:59 11:59 Intake Total 2214 / 2214 1306 / 1306 1473 / 1473 Output Total 675 / 675 525 / 525 2049 / 2049 Balance 1539 / 1539 781 / 781 -577 / -577 - Physical Exam Oriented: Normal Eyes: Normal Ear: Normal Nose: Normal Throat: Normal Respiratory: Generalized, Diminished Cardiovascular: Tachycardia, Irregular : Normal Auscultation: Bowel Sounds: Normal Tenderness: Normal Skin: Normal Musculoskeletal: Normal Psychiatric: Anxiety Affect: Anxious Speech Pattern: Clear, Appropriate - Laboratory and Diagnostics Result Diagrams: 07/23/20 05:18 07/23/20 05:18 Labs: Laboratory WBC 6.0 X10^3/uL (3.6-10.0) 07/23/20 05:18 RBC 3.43 X10^6/uL (3.5-5.4) L 07/23/20 05:18 Hgb 9.6 g/dL (12.0-16.0) L 07/23/20 05:18 Hct 29.3 % (36.0-47.0) L 07/23/20 05:18 MCV 85.4 fL (80.0-100.0) 07/23/20 05:18 MCH 27.9 pg (27.0-34.0) 07/23/20 05:18 MCHC 32.7 g/dL (33.0-35.0) L 07/23/20 05:18 RDW 15.0 % (11.6-16.5) 07/23/20 05:18 Plt Count 263 X10^3/uL (150.0-450.0) 07/23/20 05:18 MPV 9.2 fL (7.4-11.0) 07/23/20 05:18 Neut % (Auto) 74.8 % (42.0-75.0) 07/23/20 05:18 Lymph % (Auto) 12.4 % (21.0-51.0) L 07/23/20 05:18 [place] % (Auto) 8.5 % (0.0-13.0) 07/23/20 05:18 Eos % (Auto) 3.7 % (0.9-2.9) H 07/23/20 05:18 Baso % (Auto) 0.6 % (0.2-1.0) 07/23/20 05:18 Neut # (Auto) 4.5 x10^3/uL (2.2-4.8) 07/23/20 05:18 Lymph # (Auto) 0.7 X10^3/uL (1.3-2.9) L 07/23/20 05:18 [place] # (Auto) 0.5 x10^3/uL (0.3-0.8) 07/23/20 05:18 Eos # (Auto) 0.2 x10^3/uL (0.0-0.2) 07/23/20 05:18 Baso # (Auto) 0.0 X10^3/uL (0.0-0.1) 07/23/20 05:18 Absolute Nucleated RBC 0.1 /100WBC 07/23/20 05:18 PT 14.2 SECONDS (11.8-14.3) 07/17/20 15:48 INR Target Range - 07/17/20 15:48 INR 1.15 (0.8-1.3) 07/17/20 15:48 APTT 28.8 SECONDS (22.9-36.5) 07/17/20 15:48 PTT Comment - 07/17/20 15:48 Sample Site Rrad 07/18/20 11:49 ABG pH 7.460 (7.35-7.45) H 07/18/20 11:49 ABG pCO2 36.0 mmHg (35.0-45.0) 07/18/20 11:49 ABG pO2 67.0 mmHg (80.0-100.0) L 07/18/20 11:49 ABG HCO3 25.6 mmol/L (22-26) 07/18/20 11:49 ABG O2 Saturation 94.0 % (90-100) 07/18/20 11:49 ABG Base Excess 1.9 mmol/L (-2.0-2.0) 07/18/20 11:49 Cole Test Pos 07/18/20 11:49 A-a Gradient 38.0 mmHg 07/18/20 11:49 FiO2 21.0 07/18/20 11:49 Blood Gas Comments Pt gustavo well elj cdn 07/18/20 11:49 Sodium 139 mmol/L (136-145) 07/23/20 05:18 Corrected Sodium TNP 07/23/20 05:18 Potassium 4.1 mmol/L (3.5-5.1) 07/23/20 05:18 Chloride 102 mmol/L (98-107) 07/23/20 05:18 Carbon Dioxide 30.8 mmol/L (21-32) 07/23/20 05:18 BUN 8 mg/dL (7-18) 07/23/20 05:18 Creatinine 0.49 mg/dL (0.55-1.02) L 07/23/20 05:18 Est GFR (MDRD) Af Amer > 60 (>60) 07/23/20 05:18 Est GFR (MDRD) Non-Af > 60 (>60) 07/23/20 05:18 Glucose 110 mg/dL (65-99) H 07/23/20 05:18 POC Glucose (mg/dL) 107 mg/dL (65-99) H 07/18/20 11:33 Calcium 8.3 mg/dL (8.5-10.1) L 07/23/20 05:18 Corrected Calcium 9.5 mg/dL (8.5-10.1) 07/23/20 05:18 Magnesium 1.5 mg/dL (1.7-2.9) L 07/20/20 04:39 Total Bilirubin 0.60 mg/dL (0.2-1.0) 07/23/20 05:18 AST 30 Units/L (15-37) 07/23/20 05:18 ALT 36 Units/L (12-78) 07/23/20 05:18 Alkaline Phosphatase 94 Units/L (46-116) 07/23/20 05:18 Creatine Kinase 74 Units/L (26-192) 07/19/20 07:05 CK-MB (CK-2) 2.1 ng/mL (0-4.0) 07/19/20 07:05 CK/CKMB % Calc 2.8 % (<4) 07/19/20 07:05 Troponin I 0.13 ng/mL (0-1.5) 07/19/20 07:05 B-Natriuretic Peptide 422 pg/mL (0-79) H 07/23/20 05:18 Total Protein 6.9 g/dL (6.4-8.2) 07/23/20 05:18 Albumin 2.5 g/dL (3.4-5.0) L 07/23/20 05:18 Globulin 4.4 g/dL (2.5-4.5) 07/23/20 05:18 Albumin/Globulin Ratio 0.6 Ratio (1.1-2.1) L 07/23/20 05:18 Specimen Type Catherized urine 07/18/20 04:50 Urine Color Yellow (YELLOW) 07/18/20 04:50 Urine Appearance Clear (CLEAR) 07/18/20 04:50 Urine pH 5.0 (5.0 - 8.0) 07/18/20 04:50 Ur Specific [place] 1.025 (1.000-1.030) 07/18/20 04:50 Urine Protein 2+ (NEGATIVE) 07/18/20 04:50 Urine Glucose (UA) Negative (NEGATIVE) 07/18/20 04:50 Urine Ketones Negative (NEGATIVE) 07/18/20 04:50 Urine Occult Blood Negative (NEGATIVE) 07/18/20 04:50 Urine Nitrite Negative (NEGATIVE) 07/18/20 04:50 Urine Bilirubin Negative (NEGATIVE) 07/18/20 04:50 Urine Urobilinogen Normal (NORMAL) 07/18/20 04:50 Ur Leukocyte Esterase Negative (NEGATIVE) 07/18/20 04:50 Urine RBC None seen /HPF (0-3) 07/18/20 04:50 Urine WBC None seen /HPF (0-5) 07/18/20 04:50 Ur Squamous Epith Cells Rare /HPF (NEGATIVE) 07/18/20 04:50 Urine Bacteria Negative /HPF (NEGATIVE) 07/18/20 04:50 Urine Mucus Moderate /HPF (NEGATIVE) 07/18/20 04:50 Ur Culture Indicated? No/not indicated 07/18/20 04:50 - Plan (1) Atrial fib/flutter, transient Status: Acute Plan: cardizem cd 240mg po daily, amiodarone 200mg po bid, metoprolol 25mg po bid, STRICT I&OS. SUPPLEMENTAL O2, ANTICOAULANT THERAPY. CARDIAC MONITORING AND BP CONTROL. cardiology consult (2) SOB (shortness of breath) Status: Acute
[2020-07-23] MEDS: MAG-OX TAB PO SCH (16:17)
[2020-07-24] MEDS ORDERED: CYMBALTA PO SCH (02:22)
[2020-07-24] MEDS ORDERED: BENICAR TAB 40 MG PO SCH (02:22)
[2020-07-24] MEDS ORDERED: BENICAR TAB 40 MG PO ONE (02:25)
[2020-07-24] MEDS ORDERED: CYMBALTA PO ONE (02:25)
[2020-07-24] MEDS ORDERED: APRESOLINE INJ 20 MG VIAL IVP ONE (03:30)
[2020-07-24] MEDS ORDERED: APRESOLINE INJ 20 MG VIAL ONE (03:32)
[2020-07-24] MEDS ORDERED: XOPENEX 1.25 MG/3 ML NEBULE NEB ONE (04:21)
--- NOTE | 2020-07-24 04:43 | RAD ---
STUDY: CHEST, 1 VIEWCOMPARISON: July 22, 2020HISTORY: SOB, DIAPHORETICFINDINGS:Persistent bilateral lower lobe airspace disease is seen with stable cardiomegaly. Small right pleural effusion is seen. Left subpulmonic effusion is noted. There is a skin fold over the thorax traversing along the mediastinum. No gross pneumothorax is seen. Exam was obtained with patient rotation to the left.IMPRESSION:1. Persistent bilateral lower lobe multifocal consolidation is seen with cardiomegaly2. There is a small right pleural effusion3. There is a small stable left subpulmonic effusionElectronically signed by: Andrey Mckeon (July 24, 2020 04:40:07)
[2020-07-24] MEDS ORDERED: CARDIZEM INJ 50 MG VIAL ONE (04:46)
[2020-07-24] MEDS: CARDIZEM INJ 50 MG VIAL IVP ONE ×2 (04:48→05:49)
[2020-07-24] MEDS: CARDIZEM INJ 125 MG VIAL 125 MG in NS 100 ML IV 100 ML IV PRN ×2 (04:58→18:37)
[2020-07-24 05:09] LABS: BASOPHILS # (AUTO) 0.1 X10^3/uL (0.0-0.1); BASOPHILS % (AUTO) 0.7 % (0.2-1.0); EOSINOPHILS # (AUTO) 0.2 x10^3/uL (0.0-0.2); EOSINOPHILS % (AUTO) 2.6 % (0.9-2.9); HEMATOCRIT 33.6 % (36.0-47.0); HEMOGLOBIN 10.9 g/dL (12.0-16.0); LYMPHOCYTES # (AUTO) 0.7 X10^3/uL (1.3-2.9); LYMPHOCYTES % (AUTO) 9.5 % (21.0-51.0); MEAN CORPUSCULAR HEMOGLOBIN 27.5 pg (27.0-34.0); MEAN CORPUSCULAR HGB CONC 32.4 g/dL (33.0-35.0); MEAN CORPUSCULAR VOLUME 84.8 fL (80.0-100.0); MEAN PLATELET VOLUME 9.2 fL (7.4-11.0); MONOCYTES # (AUTO) 0.5 x10^3/uL (0.3-0.8); MONOCYTES % (AUTO) 5.9 % (0.0-13.0); NEUTROPHILS # (AUTO) 6.3 x10^3/uL (2.2-4.8); NEUTROPHILS % (AUTO) 81.3 % (42.0-75.0); PLATELET COUNT 308 X10^3/uL (150.0-450.0); RED BLOOD COUNT 3.97 X10^6/uL (3.5-5.4); RED CELL DISTRIBUTION WIDTH 15.2 % (11.6-16.5); WHITE BLOOD COUNT 7.7 X10^3/uL (3.6-10.0)
[2020-07-24] MEDS: XOPENEX 1.25 MG/3 ML NEBULE NEB SCH ×5 (05:14→20:00)
[2020-07-24 05:15] LABS: ALANINE AMINOTRANSFERASE 43 Units/L (12-78); ALBUMIN 2.9 g/dL (3.4-5.0); ALKALINE PHOSPHATASE 116 Units/L (46-116); ASPARTATE AMINO TRANSFERASE 32 Units/L (15-37); BLOOD UREA NITROGEN 9 mg/dL (7-18); CALCIUM 8.5 mg/dL (8.5-10.1); CARBON DIOXIDE 29.6 mmol/L (21-32); CHLORIDE 98 mmol/L (98-107); COR CA(FOR HYPOALB) 9.4 mg/dL (8.5-10.1); COR NA(FOR HYPERGLY) 138 mmol/L (136-145); CREATININE 0.55 mg/dL (0.55-1.02); SODIUM 137 mmol/L (136-145); TOTAL PROTEIN 7.8 g/dL (6.4-8.2); eGFR NON BLACK RACES > 60 (>60)
[2020-07-24] MEDS: SYNTHROID 25 mcg TAB PO SCH (06:08)
[2020-07-24] MEDS: CORDARONE TAB 200 MG PO SCH ×2 (06:09→16:35)
[2020-07-24] MEDS ORDERED: PATIENT'S HOME MEDICATION PO SCH (09:00)
[2020-07-24] MEDS: ELIQUIS PO SCH ×2 (09:50→21:15)
[2020-07-24] MEDS: LOPRESSOR TAB 25 MG PO SCH (09:50)
[2020-07-24] MEDS: CARDIZEM CD 240 MG 24-HR PO SCH (09:50)
[2020-07-24] MEDS ORDERED: LOPRESSOR TAB 25 MG PO ONE (09:51)
[2020-07-24] MEDS: NS 1000 ML 1,000 ML IV SCH (10:00)
[2020-07-24] MEDS: MILK OF MAGNESIA PO SCH (10:07)
[2020-07-24] MEDS: COLACE CAP 100 MG PO SCH (10:07)
[2020-07-24] MEDS: LASIX IVP SCH ×2 (10:09→16:35)
[2020-07-24] MEDS: CYMBALTA PO SCH (10:10)
[2020-07-24] MEDS: MAGNESIUM SULFATE 1 GRAM/100 mL PREMIX 1 GM/100 ML BAG IV PRN ×2 (12:10→14:49)
[2020-07-24] MEDS: TYLENOL 325 MG TAB PO PRN (12:49)
[2020-07-24] MEDS: MAG-OX TAB PO SCH (16:35)
[2020-07-24] MEDS: LOPRESSOR TAB 50 MG PO SCH (21:15)
[2020-07-25] MEDS: MILK OF MAGNESIA PO SCH ×3 (00:45→20:42)
[2020-07-25] MEDS: COLACE CAP 100 MG PO SCH ×3 (00:45→20:42)
[2020-07-25 05:32] LABS: BASOPHILS % (AUTO) 0.4 % (0.2-1.0); EOSINOPHILS # (AUTO) 0.2 x10^3/uL (0.0-0.2); EOSINOPHILS % (AUTO) 3.2 % (0.9-2.9); HEMATOCRIT 29.7 % (36.0-47.0); HEMOGLOBIN 9.9 g/dL (12.0-16.0); LYMPHOCYTES # (AUTO) 0.7 X10^3/uL (1.3-2.9); LYMPHOCYTES % (AUTO) 9.9 % (21.0-51.0); MEAN CORPUSCULAR HEMOGLOBIN 28.2 pg (27.0-34.0); MEAN CORPUSCULAR HGB CONC 33.4 g/dL (33.0-35.0); MEAN CORPUSCULAR VOLUME 84.4 fL (80.0-100.0); MEAN PLATELET VOLUME 9.2 fL (7.4-11.0); MONOCYTES # (AUTO) 0.6 x10^3/uL (0.3-0.8); MONOCYTES % (AUTO) 8.3 % (0.0-13.0); NEUTROPHILS # (AUTO) 5.8 x10^3/uL (2.2-4.8); NEUTROPHILS % (AUTO) 78.2 % (42.0-75.0); PLATELET COUNT 294 X10^3/uL (150.0-450.0); RED BLOOD COUNT 3.52 X10^6/uL (3.5-5.4); RED CELL DISTRIBUTION WIDTH 14.8 % (11.6-16.5); WHITE BLOOD COUNT 7.4 X10^3/uL (3.6-10.0)
[2020-07-25 05:41] LABS: ALANINE AMINOTRANSFERASE 34 Units/L (12-78); ALBUMIN 2.6 g/dL (3.4-5.0); ALKALINE PHOSPHATASE 94 Units/L (46-116); ASPARTATE AMINO TRANSFERASE 21 Units/L (15-37); BLOOD UREA NITROGEN 13 mg/dL (7-18); CALCIUM 8.2 mg/dL (8.5-10.1); CHLORIDE 99 mmol/L (98-107); COR CA(FOR HYPOALB) 9.3 mg/dL (8.5-10.1); COR NA(FOR HYPERGLY) 136 mmol/L (136-145); CREATININE 0.62 mg/dL (0.55-1.02); MAGNESIUM 1.9 mg/dL (1.7-2.9); SODIUM 136 mmol/L (136-145); TOTAL PROTEIN 7.1 g/dL (6.4-8.2); eGFR NON BLACK RACES > 60 (>60)
--- NOTE | 2020-07-25 06:23 | RAD ---
HISTORYSOBSTUDYAP [id number] appearance of cardiomegaly. Bibasal airspace disease again noted, slightly improved in the right lower lung. Decrease in prominence of right pleural effusion. The upper lobes remain relatively clear. No new consolidation or developing extrapulmonary air identified.IMPRESSIONStable cardiomegaly. Slight improvement in right lower lobe infiltrate and right pleural effusion. No change otherwise.Electronically signed by: MARVEL HAWLEY (July 25, 2020 06:21:45)
[2020-07-25] MEDS: SYNTHROID 25 mcg TAB PO SCH (06:47)
[2020-07-25] MEDS: CORDARONE TAB 200 MG PO SCH ×2 (06:48→17:40)
[2020-07-25] MEDS: NS 1000 ML 1,000 ML IV SCH ×3 (08:04→20:42)
[2020-07-25] MEDS: CYMBALTA PO SCH (08:31)
[2020-07-25] MEDS: ELIQUIS PO SCH ×2 (08:32→20:41)
[2020-07-25] MEDS: LOPRESSOR TAB 50 MG PO SCH ×2 (08:32→20:42)
[2020-07-25] MEDS: CARDIZEM CD 240 MG 24-HR PO SCH (08:33)
[2020-07-25] MEDS: LASIX IVP SCH ×2 (08:54→17:41)
[2020-07-25] MEDS ORDERED: CYMBALTA PO SCH (09:00)
[2020-07-25] MEDS: XOPENEX 1.25 MG/3 ML NEBULE NEB SCH ×4 (09:05→20:45)
[2020-07-25] MEDS: MAG-OX TAB PO SCH (17:40)
[2020-07-25] MEDS: MAGNESIUM SULFATE 1 GRAM/100 mL PREMIX 1 GM/100 ML BAG IV PRN (20:43)
[2020-07-26] MEDS: MAGNESIUM SULFATE 1 GRAM/100 mL PREMIX 1 GM/100 ML BAG IV PRN
[2020-07-26 05:04] LABS: BASOPHILS % (AUTO) 0.9 % (0.2-1.0); EOSINOPHILS # (AUTO) 0.2 x10^3/uL (0.0-0.2); EOSINOPHILS % (AUTO) 3.1 % (0.9-2.9); HEMATOCRIT 29.1 % (36.0-47.0); HEMOGLOBIN 9.6 g/dL (12.0-16.0); LYMPHOCYTES # (AUTO) 0.7 X10^3/uL (1.3-2.9); LYMPHOCYTES % (AUTO) 12.8 % (21.0-51.0); MEAN CORPUSCULAR HEMOGLOBIN 27.9 pg (27.0-34.0); MEAN CORPUSCULAR VOLUME 84.5 fL (80.0-100.0); MEAN PLATELET VOLUME 8.9 fL (7.4-11.0); MONOCYTES # (AUTO) 0.5 x10^3/uL (0.3-0.8); MONOCYTES % (AUTO) 8.4 % (0.0-13.0); NEUTROPHILS # (AUTO) 4.1 x10^3/uL (2.2-4.8); NEUTROPHILS % (AUTO) 74.8 % (42.0-75.0); PLATELET COUNT 246 X10^3/uL (150.0-450.0); RED BLOOD COUNT 3.45 X10^6/uL (3.5-5.4); RED CELL DISTRIBUTION WIDTH 14.9 % (11.6-16.5); WHITE BLOOD COUNT 5.4 X10^3/uL (3.6-10.0)
[2020-07-26 05:14] LABS: ALANINE AMINOTRANSFERASE 28 Units/L (12-78); ALBUMIN 2.5 g/dL (3.4-5.0); ALKALINE PHOSPHATASE 88 Units/L (46-116); ASPARTATE AMINO TRANSFERASE 20 Units/L (15-37); BLOOD UREA NITROGEN 14 mg/dL (7-18); CARBON DIOXIDE 29.5 mmol/L (21-32); CHLORIDE 99 mmol/L (98-107); COR CA(FOR HYPOALB) 9.2 mg/dL (8.5-10.1); COR NA(FOR HYPERGLY) 135 mmol/L (136-145); CREATININE 0.53 mg/dL (0.55-1.02); MAGNESIUM 2.1 mg/dL (1.7-2.9); SODIUM 135 mmol/L (136-145); TOTAL PROTEIN 6.9 g/dL (6.4-8.2); eGFR NON BLACK RACES > 60 (>60)
--- NOTE | 2020-07-26 05:29 | RAD ---
PROCEDURE: Chest X-ray 1 View .HISTORY: Short of breath.TECHNIQUE: AP view .COMPARISON: 07/25/2020.TECHNICAL QUALITY: Satisfactory .FINDINGS:Unchanged mild cardiomegaly.Mediastinal silhouettes unremarkable.Minimally increased central vascularity.Unchanged thickening of the minor fissure. Small right pleural effusion similar to previous study. No definite consolidation or pneumothorax.IMPRESSION:1. Mild central vascular prominence compared to previous study with unchanged mild cardiomegaly.2. Unchanged small right pleural effusion.Electronically signed by: Eleuterio Owusu (July 26, 2020 05:27:39)
[2020-07-26] MEDS: SYNTHROID 25 mcg TAB PO SCH (06:05)
[2020-07-26] MEDS: CORDARONE TAB 200 MG PO SCH ×2 (06:05→17:23)
[2020-07-26] MEDS: COLACE CAP 100 MG PO SCH ×2 (08:29→21:00)
[2020-07-26] MEDS: CARDIZEM CD 240 MG 24-HR PO SCH (08:29)
[2020-07-26] MEDS: MILK OF MAGNESIA PO SCH ×2 (08:31→22:02)
[2020-07-26] MEDS: XOPENEX 1.25 MG/3 ML NEBULE NEB SCH ×4 (09:04→20:56)
[2020-07-26] MEDS: ELIQUIS PO SCH ×2 (09:30→21:00)
[2020-07-26] MEDS: NS 1000 ML 1,000 ML IV SCH ×2 (09:30→23:58)
[2020-07-26] MEDS: LOPRESSOR TAB 50 MG PO SCH (09:30)
[2020-07-26] MEDS: CYMBALTA PO SCH (09:30)
[2020-07-26] MEDS: MAG-OX TAB PO SCH (17:07)
[2020-07-26] MEDS ORDERED: LOPRESSOR TAB 25 MG PO ONE ×2 (17:09→19:10)
[2020-07-26] MEDS ORDERED: CARDIZEM CD 240 MG 24-HR PO SCH (18:00)
[2020-07-27] MEDS: LOPRESSOR TAB 50 MG PO SCH ×2 (01:00→09:04)
[2020-07-27] MEDS ORDERED: ZOFRAN INJ 4 MG VIAL IVP PRN (04:02)
[2020-07-27] MEDS ORDERED: ZOFRAN INJ 4 MG VIAL ONE (04:03)
[2020-07-27] MEDS: NS 1000 ML 1,000 ML IV SCH ×2 (04:51→12:19)
[2020-07-27 05:10] LABS: BASOPHILS # (AUTO) 0.1 X10^3/uL (0.0-0.1); BASOPHILS % (AUTO) 0.8 % (0.2-1.0); EOSINOPHILS # (AUTO) 0.1 x10^3/uL (0.0-0.2); EOSINOPHILS % (AUTO) 1.8 % (0.9-2.9); HEMATOCRIT 29.6 % (36.0-47.0); HEMOGLOBIN 9.7 g/dL (12.0-16.0); LYMPHOCYTES # (AUTO) 0.7 X10^3/uL (1.3-2.9); LYMPHOCYTES % (AUTO) 9.1 % (21.0-51.0); MEAN CORPUSCULAR HEMOGLOBIN 27.8 pg (27.0-34.0); MEAN CORPUSCULAR HGB CONC 32.9 g/dL (33.0-35.0); MEAN CORPUSCULAR VOLUME 84.6 fL (80.0-100.0); MEAN PLATELET VOLUME 9.2 fL (7.4-11.0); MONOCYTES # (AUTO) 0.5 x10^3/uL (0.3-0.8); MONOCYTES % (AUTO) 6.5 % (0.0-13.0); NEUTROPHILS # (AUTO) 6.4 x10^3/uL (2.2-4.8); NEUTROPHILS % (AUTO) 81.8 % (42.0-75.0); PLATELET COUNT 272 X10^3/uL (150.0-450.0); WHITE BLOOD COUNT 7.8 X10^3/uL (3.6-10.0)
[2020-07-27 05:18] LABS: ALANINE AMINOTRANSFERASE 28 Units/L (12-78); ALBUMIN 2.5 g/dL (3.4-5.0); ALKALINE PHOSPHATASE 89 Units/L (46-116); ASPARTATE AMINO TRANSFERASE 30 Units/L (15-37); BLOOD UREA NITROGEN 19 mg/dL (7-18); CALCIUM 7.9 mg/dL (8.5-10.1); CARBON DIOXIDE 28.3 mmol/L (21-32); CHLORIDE 100 mmol/L (98-107); COR CA(FOR HYPOALB) 9.1 mg/dL (8.5-10.1); COR NA(FOR HYPERGLY) 136 mmol/L (136-145); CREATININE 0.61 mg/dL (0.55-1.02); SODIUM 134 mmol/L (136-145); eGFR NON BLACK RACES > 60 (>60)
--- NOTE | 2020-07-27 05:21 | RAD ---
PROCEDURE: Chest X-ray 1 View .HISTORY: Short of breath.TECHNIQUE: AP view .COMPARISON: 07/26/2020.TECHNICAL QUALITY: Satisfactory .FINDINGS:Normal size heart and unremarkable mediastinal silhouette.Normal central vascularity.Increased consolidation right mid lower lung field laterally with increase in pleural fluid. Continued atelectasis and consolidation left base similar to previous study. No pneumothorax.IMPRESSION:Increase pneumonia and pleural fluid on the right and unchanged on the left.Electronically signed by: Eleuterio Owusu (July 27, 2020 05:19:49)
[2020-07-27] MEDS: SYNTHROID 25 mcg TAB PO SCH (06:14)
[2020-07-27] MEDS: CORDARONE TAB 200 MG PO SCH (07:08)
[2020-07-27] MEDS ORDERED: LASIX IVP ONE (08:36)
[2020-07-27] MEDS ORDERED: FORTAZ or TAZICEF VIAL INJ 1 G in NS 100 ML IV + SPIKE MINIBAG* 100 ML IV SCH (09:00)
[2020-07-27] MEDS: CARDIZEM CD 240 MG 24-HR PO SCH (09:03)
[2020-07-27] MEDS: MILK OF MAGNESIA PO SCH (09:04)
[2020-07-27] MEDS: ELIQUIS PO SCH (09:04)
[2020-07-27] MEDS: CYMBALTA PO SCH (09:04)
[2020-07-27] MEDS: COLACE CAP 100 MG PO SCH (09:04)
[2020-07-27] MEDS: XOPENEX 1.25 MG/3 ML NEBULE NEB SCH ×2 (09:05→12:06)
[2020-07-27 13:25] VITALS: BP 115/60
== END 2020-07-27 13:25 | DRG 310 ==
LOC: MED/SURG 15:23 → ER 15:23 → MED/SURG 19:05 → ICU 22:04
PROVIDERS: ADMIT Internal Medicine; ATTEND Internal Medicine
DX: R73.09 Other abnormal glucose; I48.92 Unspecified atrial flutter; E78.2 Mixed hyperlipidemia; R94.31 Abnormal electrocardiogram [ECG] [EKG]; I48.91 Unspecified atrial fibrillation; Z98.890 Other specified postprocedural states; Z95.4 Presence of other heart-valve replacement; R42 Dizziness and giddiness; I50.9 Heart failure, unspecified; Z86.73 Personal history of transient ischemic attack (TIA), and cerebral infarction without residual deficits; K21.9 Gastro-esophageal reflux disease without esophagitis; I25.10 Atherosclerotic heart disease of native coronary artery without angina pectoris; R06.02 Shortness of breath; R26.89 Other abnormalities of gait and mobility; I11.0 Hypertensive heart disease with heart failure

== ENCOUNTER 2020-08-19 07:55 | Inpatient (IN) ==
[2020-08-19] MEDS ORDERED: XOPENEX 1.25 MG/3 ML NEBULE NEB ONE ×3 (08:22→15:55)
[2020-08-19 08:23] VITALS: BMI 26.6
--- NOTE | 2020-08-19 08:32 | DR.SOBA ---
HPI Time Seen Time Seen by Provider: 08/19/20 08:17 Primary Care Physician Primary Care Physician: Juan HPI Comment HPI Comment: A 79 y/o female presenting with increased SOB. She currently resides briefly at the [facility] in [place] undergoing rehab. She denies associated chest pain, palpitations, diaphoresis or nausea/vomiting. She was recently diagnosed with A. fib./flutter and was scheduled for cardioversion but it didn't happen (relating to misunderstanding and the other time logistics- she is on Plavix, Amiodarone), COVID-19 Coronavirus risk:travel/contact w/high risk person: No Has patient experienced Coronavirus symptoms: No Coronavirus symptoms experienced: Shortness of Breath Reviewed Nurses Notes Reviewed: Yes Source History Provided: Patient and Family Member Timing Onset of Chief Complaint: 08/19/20 Context Onset:: At Rest PE Risk Factors:: None History of:: CHF Prehospital Care:: None Modifying Factors Worsens:: Nothing Improves:: Nothing Associated Signs and Symptoms Associated Signs and Symptoms: Cough (mostly dry ) If Cough Cough: Nonproductive PMH PMH Past Medical History: Anxiety, Arthritis, CVA, Dyslipidemia, Hypertension and Hypothyroidism Past Medical History Comment: A. fib./flutter Past Surgical History: Yes Surgical History: Bowel Resection, Cholecystectomy, Hysterectomy and Ortho Surgery Family History Family Medical History: MD, Coronary Artery Disease and Hypertension Social History Do you use any recreational Drugs:: No Travel Risk Coronavirus risk:travel/contact w/high risk person: No Has patient experienced Coronavirus symptoms: No Infectious screening Isolation: Standard ROS Review of Systems Constitutional: No Symptoms Reported Eyes: No Symptoms Reported ENTM: No Symptoms Reported Respiratoy: Non-Productive Cough and Short of Breath Cardiovascular: No Symptoms Reported Gastrointestinal/Abdominal: No Symptoms Reported Genitourinary: No Symptoms Reported Neurological: No Symptoms Reported Musculoskeletal: No Symptoms Reported Integumentary: No Symptoms Reported Hematologic/Lymphatic: No Symptoms Reported Endocrine: No Symptoms Reported Psychiatric: No Symptoms Reported PE Vital Signs Vitals: Temperature 97.6 F Pulse Rate 95 Respiratory Rate 24 Blood Pressure [Left Arm] 165/77 Blood Pressure [Right Arm] 144/95 Blood Pressure 148/85 O2 Sat by Pulse Oximetry 99 General Limitations: No Limitations General Appearance: Alert, In No Apparent Distress and Other (weak) Head Head Exam: Normal Inspection, Atraumatic and Normocephalic Eyes Eye exam: Normal Appearance and EOMI ENT ENT Exam: Normal Exam, Normal Oropharynx, Normal External Ear Exam and Mucous Membranes Moist Neck Neck Exam: Normal Inspection, Full ROM and Trachea Midline Chest Chest Inspection: Normal Inspection and Symmetric Chest Wall Rise Respiratory Respiratory Exam: Bilateral: Wheezing (mild) and Bilateral: Rhonchi Cardiovascular Cardiovascular Exam: Irregular Rhythm, Normal Heart Sounds, +S1 and +S2 Abdominal Exam Abdominal Exam: Normal Inspection, Normal Bowel Sounds and Soft Extremities Extremities Exam: Normal Inspection and Full ROM Back Back Exam: Normal Inspection and Full ROM Neurologic Neurological Exam: Alert and Oriented X3 Psychiatric Psychiatric Exam: Normal Affect and Normal Mood Skin Skin Exam: Intact and Normal Color MDM Differential Diagnosis Differential Diagnosis: Bronchitis, Pneumonia and Pulmonary embolism Differential Diagnosis Comment:: Pneumonia COURSE Reevaluation 1st: Improved (She is noted able to converse more freely with less dyspnea. ) 2nd: Improved Education/Counseling Education/Counseling: Patient, Family, Education and Counseling Educated On: Treatment, Diagnosis, Prognosis and Needs for Follow Up Education Comments: HISTORY SOB STUDY CHEST, 1 VIEW COMPARISON 07/27/2020 FINDINGS Abnor ROR Labs Reviewed Result Diagrams: 08/19/20 08:42 08/19/20 09:15 Laboratory: WBC 9.8 X10^3/uL (3.6-10.0) 08/19/20 08:42 RBC 3.86 X10^6/uL (3.5-5.4) 08/19/20 08:42 Hgb 10.4 g/dL (12.0-16.0) L 08/19/20 08:42 Hct 32.0 % (36.0-47.0) L 08/19/20 08:42 MCV 83.0 fL (80.0-100.0) 08/19/20 08:42 MCH 27.0 pg (27.0-34.0) 08/19/20 08:42 MCHC 32.5 g/dL (33.0-35.0) L 08/19/20 08:42 RDW 16.2 % (11.6-16.5) 08/19/20 08:42 Plt Count 215 X10^3/uL (150.0-450.0) 08/19/20 08:42 MPV 9.6 fL (7.4-11.0) 08/19/20 08:42 Neut % (Auto) 88.6 % (42.0-75.0) H 08/19/20 08:42 Lymph % (Auto) 4.8 % (21.0-51.0) L 08/19/20 08:42 [place] % (Auto) 5.9 % (0.0-13.0) 08/19/20 08:42 Eos % (Auto) 0.4 % (0.9-2.9) L 08/19/20 08:42 Baso % (Auto) 0.3 % (0.2-1.0) 08/19/20 08:42 Neut # (Auto) 8.7 x10^3/uL (2.2-4.8) H 08/19/20 08:42 Lymph # (Auto) 0.5 X10^3/uL (1.3-2.9) L 08/19/20 08:42 [place] # (Auto) 0.6 x10^3/uL (0.3-0.8) 08/19/20 08:42 Eos # (Auto) 0.0 x10^3/uL (0.0-0.2) 08/19/20 08:42 Baso # (Auto) 0.0 X10^3/uL (0.0-0.1) 08/19/20 08:42 Absolute Nucleated RBC 0.1 /100WBC 08/19/20 08:42 D-Dimer 1.17 ug/ml (0.0-0.57) H* 08/19/20 09:15 Sample Site Rbra 08/19/20 08:42 ABG pH 7.470 (7.35-7.45) H 08/19/20 08:42 ABG pCO2 48.0 mmHg (35.0-45.0) H 08/19/20 08:42 ABG pO2 112.0 mmHg (80.0-100.0) H 08/19/20 08:42 ABG HCO3 34.9 mmol/L (22-26) H* 08/19/20 08:42 ABG O2 Saturation 99.0 % (90-100) 08/19/20 08:42 ABG Base Excess 9.8 mmol/L (-2.0-2.0) H 08/19/20 08:42 Cole Test Na 08/19/20 08:42 A-a Gradient 28.0 mmHg 08/19/20 08:42 FiO2 28.0 08/19/20 08:42 Blood Gas Comments Pt gustavo well eb 08/19/20 08:42 Sodium 143 mmol/L (136-145) 08/19/20 09:15 Corrected Sodium 144 mmol/L (136-145) 08/19/20 09:15 Potassium 3.1 mmol/L (3.5-5.1) L 08/19/20 09:15 Chloride 102 mmol/L (98-107) 08/19/20 09:15 Carbon Dioxide 32.7 mmol/L (21-32) H 08/19/20 09:15 BUN 20 mg/dL (7-18) H 08/19/20 09:15 Creatinine 0.80 mg/dL (0.55-1.02) 08/19/20 09:15 Est GFR (MDRD) Af Amer > 60 (>60) 08/19/20 09:15 Est GFR (MDRD) Non-Af > 60 (>60) 08/19/20 09:15 Glucose 122 mg/dL (65-99) H 08/19/20 09:15 Calcium 8.3 mg/dL (8.5-10.1) L 08/19/20 09:15 Corrected Calcium 9.0 mg/dL (8.5-10.1) 08/19/20 09:15 Total Bilirubin 1.10 mg/dL (0.2-1.0) H 08/19/20 09:15 AST 28 Units/L (15-37) 08/19/20 09:15 ALT 29 Units/L (12-78) 08/19/20 09:15 Alkaline Phosphatase 83 Units/L (46-116) 08/19/20 09:15 Creatine Kinase 41 Units/L (26-192) 08/19/20 08:42 CK-MB (CK-2) < 1.0 ng/mL (0-4.0) 08/19/20 08:42 CK/CKMB % Calc 2.4 % (<4) 08/19/20 08:42 Troponin I 0.03 ng/mL (0-1.5) 08/19/20 08:42 Total Protein 7.9 g/dL (6.4-8.2) 08/19/20 09:15 Albumin 3.1 g/dL (3.4-5.0) L 08/19/20 09:15 Globulin 4.8 g/dL (2.5-4.5) H 08/19/20 09:15 Albumin/Globulin Ratio 0.6 Ratio (1.1-2.1) L 08/19/20 09:15 TSH 3rd Generation 3.954 uIU/mL (0.358-3.74) H 08/19/20 09:15 Specimen Type Catherized urine 08/19/20 10:42 Urine Color Yellow (YELLOW) 08/19/20 10:42 Urine Appearance Clear (CLEAR) 08/19/20 10:42 Urine pH 6.0 (5.0 - 8.0) 08/19/20 10:42 Ur Specific [place] 1.020 (1.000-1.030) 08/19/20 10:42 Urine Protein 3+ (NEGATIVE) 08/19/20 10:42 Urine Glucose (UA) Negative (NEGATIVE) 08/19/20 10:42 Urine Ketones Negative (NEGATIVE) 08/19/20 10:42 Urine Occult Blood 1+ (NEGATIVE) 08/19/20 10:42 Urine Nitrite Negative (NEGATIVE) 08/19/20 10:42 Urine Bilirubin Negative (NEGATIVE) 08/19/20 10:42 Urine Urobilinogen Normal (NORMAL) 08/19/20 10:42 Ur Leukocyte Esterase Negative (NEGATIVE) 08/19/20 10:42 Urine RBC 0-2 /HPF (0-3) 08/19/20 10:42 Urine WBC None seen /HPF (0-5) 08/19/20 10:42 Ur Squamous Epith Cells Few /HPF (NEGATIVE) 08/19/20 10:42 Urine Bacteria Negative /HPF (NEGATIVE) 08/19/20 10:42 Ur Culture Indicated? No/not indicated 08/19/20 10:42 XRAY XRAY Interpreted by: Self X-ray Results: CXR: cardiomegaly, vascular congestion interstitial bilaterally EKG Rate: 99 Rhythm: Aflutter Block: None Hypertrophy: None ST: Old Opioid Opioid Risk Tool Age (Jose box if 16-45): No History of Preadolescent Sexual Abuse: No Total: 0 Total Score Risk Category: Low Risk Copyright: [facility] predicting aberrant behaviors Diagnosis Discharge Problem: Acute hypokalemia, Atrial fibrillation/flutter Pulmonary edema Qualifiers: Chronicity: acute Qualified Code(s): J81.0 - Acute pulmonary edema Hypothyroidism Qualifiers: Hypothyroidism type: acquired Qualified Code(s): E03.9 - Hypothyroidism, unspecified Hyperlipidemia Qualifiers: Hyperlipidemia type: mixed hyperlipidemia Qualified Code(s): E78.2 - Mixed hyperlipidemia Pneumonia Qualifiers: Pneumonia type: due to unspecified organism Laterality: bilateral Lung location: unspecified part of lung Qualified Code(s): J18.9 - Pneumonia, unspecified organism ADDITIONAL NOTES Additional Notes Additional Notes: HISTORY Shortness of breath, elevated D-dimer STUDY CTA chest with contrast for pulmonary embolus Technique: Axial post-contrast images with coronal, sagittal, and 3 dimensional maximum intensity projection images obtained and evaluated. Dose reduction procedures were used with mA/kv adjusted for body size. COMPARISON None FINDINGS There is no evidence for acute pulmonary thromboembolic disease. Position of the mediastinum demonstrated no evidence for mediastinal mass, enlarged mediastinal or enlarged hilar adenopathy. There is dilatation of the aortic root maximum diameter 4.75 cm. The heart is enlarged. There is a hiatal hernia present. There is a right pleural effusion present in an unusual distribution with some fluid extending into the minor fissure and some extending into the major fissure. Fluid can be seen surrounding the lung apex medial and laterally and extending downward along the mediastinum and into the major fissure.. Follow-up until complete resolution is recommended in order to exclude an underlying pleural abnormality. Those portions of the upper abdominal organs visualized were within normal limits to the limitations of an unenhanced examination. Examination of the lung lees demonstrated bilateral perihilar confluent upper lobe alveolar filling and bilateral perihilar ground-glass infiltrates. Findings could be c onsistent with congestive heart failure, bilateral pneumonia or both. There are no nodules, or masses noted. There is diffuse peribronchial thickening consistent with bronchitis which could be acute, chronic, or both. Bilateral lower lobe bronchiectasis is present. There are some focal areas of bron chiectasis also present in the upper lobes bilaterally. IMPRESSION No evidence for acute pulmonary thromboembolic disease Cardiomegaly Bilateral perihilar alveolar filling and bilateral perihilar ground-glass infiltrates which could be consistent with cardiogenic or noncardiogenic pulmon joann edema, bilateral pneumonia or both. Clinical correlation as the presence or absence of parameters of infection recommended. Diffuse peribronchial thickening consistent with bronchitis which could be acute, chronic, or both Bronchiectasis as described bilaterally Right pleural effusion as described in a somewhat unusual distribution. Follow- up until complete resolution is recommended in order to exclude underlying pleural abnormality Electronically signed by: ALENA RILEY (Aug 19, 2020 11:24:03)
[2020-08-19 08:44] LABS: ABG BASE EXCESS 9.8 mmol/L (-2.0-2.0)
[2020-08-19 08:46] LABS: ABG HCO3 34.9 mmol/L (22-26)
[2020-08-19 08:58] LABS: BASOPHILS % (AUTO) 0.3 % (0.2-1.0); EOSINOPHILS % (AUTO) 0.4 % (0.9-2.9); HEMOGLOBIN 10.4 g/dL (12.0-16.0); LYMPHOCYTES # (AUTO) 0.5 X10^3/uL (1.3-2.9); LYMPHOCYTES % (AUTO) 4.8 % (21.0-51.0); MEAN CORPUSCULAR HGB CONC 32.5 g/dL (33.0-35.0); MEAN PLATELET VOLUME 9.6 fL (7.4-11.0); MONOCYTES # (AUTO) 0.6 x10^3/uL (0.3-0.8); MONOCYTES % (AUTO) 5.9 % (0.0-13.0); NEUTROPHILS # (AUTO) 8.7 x10^3/uL (2.2-4.8); NEUTROPHILS % (AUTO) 88.6 % (42.0-75.0); PLATELET COUNT 215 X10^3/uL (150.0-450.0); RED BLOOD COUNT 3.86 X10^6/uL (3.5-5.4); RED CELL DISTRIBUTION WIDTH 16.2 % (11.6-16.5); WHITE BLOOD COUNT 9.8 X10^3/uL (3.6-10.0)
[2020-08-19 09:45] LABS: CKMB % 2.4 % (<4); CREATINE KINASE 41 Units/L (26-192); CREATINE KINASE MB < 1.0 ng/mL (0-4.0); TROPONIN I 0.03 ng/mL (0-1.5)
[2020-08-19 09:45] LABS: ALANINE AMINOTRANSFERASE 29 Units/L (12-78); ALBUMIN 3.1 g/dL (3.4-5.0); ALKALINE PHOSPHATASE 83 Units/L (46-116); ASPARTATE AMINO TRANSFERASE 28 Units/L (15-37); BLOOD UREA NITROGEN 20 mg/dL (7-18); CALCIUM 8.3 mg/dL (8.5-10.1); CARBON DIOXIDE 32.7 mmol/L (21-32); CHLORIDE 102 mmol/L (98-107); COR NA(FOR HYPERGLY) 144 mmol/L (136-145); SODIUM 143 mmol/L (136-145); TOTAL PROTEIN 7.9 g/dL (6.4-8.2); TSH (3RD GENERATION) 3.954 uIU/mL (0.358-3.74); eGFR NON BLACK RACES > 60 (>60)
[2020-08-19] MEDS ORDERED: LASIX IVP ONE ×2 (09:57→10:11)
[2020-08-19] MEDS ORDERED: KLOR-CON PO ONE (09:59)
[2020-08-19] MEDS ORDERED: KLOR-CON ONE (10:11)
--- NOTE | 2020-08-19 10:23 | RAD ---
HISTORYSOBSTUDYCHEST, 1 [id number] opacity is present in both lungs. Today this is mostly in a perihilar and basilar distribution. The findings could be pulmonary edema or pneumonia. Overall not much change from the prior baseline study.No pneumothorax. Possible small right effusion is unchanged.The heart size is magnified. Vascular calcifications are present compatible with atherosclerosis.Bones are unremarkable.EKG leads are noted.IMPRESSION1. Bilateral pulmonary edema or pneumonia2. Stable small right effusionElectronically signed by: Xavier Carpenter (Aug 19, 2020 10:20:15)
[2020-08-19 11:02] LABS: BILIRUBIN,URINE NEGATIVE (NEGATIVE); BLOOD/HEMOGLOBIN,URINE 1+ (NEGATIVE); GLUCOSE, URINE NEGATIVE (NEGATIVE); KETONES,URINE NEGATIVE (NEGATIVE); LEUKOCYTE ESTERASE ,URINE NEGATIVE (NEGATIVE); NITRITES,URINE NEGATIVE (NEGATIVE); PROTEIN,URINE 3+ (NEGATIVE); UROBILINOGEN,URINE NORMAL (NORMAL)
[2020-08-19] MEDS ORDERED: ROCEPHIN 1 GRAM IV PREMIX 1 G/50 ML IV.SOLN. IV ONE ×2 (11:03→11:16)
[2020-08-19] MEDS ORDERED: NS 250 ML IV 250 ML IV ONE (11:15)
[2020-08-19 11:23] LABS: APPEARANCE,URINE CLEAR (CLEAR); COLOR,URINE YELLOW (YELLOW)
[2020-08-19 11:24] LABS: BACTERIA,URINE NEGATIVE /HPF (NEGATIVE); RBC,URINE 0-2 /HPF (0-3); SQUAMOUS EPITHELIAL CELL,UR FEW /HPF (NEGATIVE)
--- NOTE | 2020-08-19 11:26 | CT ---
HISTORYShortness of breath, elevated D-dimerSTUDYCTA chest with contrast for pulmonary embolusTechnique: Axial post-contrast images with coronal, sagittal, and 3 dimensional maximum intensity projection images obtained and evaluated. Dose reduction procedures were used with mA/kv adjusted for body size.COMPARISONNoneFINDINGSThere is no evidence for acute pulmonary thromboembolic disease. Position of the mediastinum demonstrated no evidence for mediastinal mass, enlarged mediastinal or enlarged hilar adenopathy. There is dilatation of the aortic root maximum diameter 4.75 cm. The heart is enlarged. There is a hiatal hernia present. There is a right pleural effusion present in an unusual distribution with some fluid extending into the minor fissure and some extending into the major fissure. Fluid can be seen surrounding the lung apex medial and laterally and extending downward along the mediastinum and into the major fissure.. Follow-up until complete resolution is recommended in order to exclude an underlying pleural abnormality. Those portions of the upper abdominal organs visualized were within normal limits to the limitations of an unenhanced examination. Examination of the lung lees demonstrated bilateral perihilar confluent upper lobe alveolar filling and bilateral perihilar ground-glass infiltrates. Findings could be consistent with congestive heart failure, bilateral pneumonia or both. There are no nodules, or masses noted. There is diffuse peribronchial thickening consistent with bronchitis which could be acute, chronic, or both. Bilateral lower lobe bronchiectasis is present. There are some focal areas of bronchiectasis also present in the upper lobes bilaterally.IMPRESSIONNo evidence for acute pulmonary thromboembolic diseaseCardiomegalyBilateral perihilar alveolar filling and bilateral perihilar ground-glass infiltrates which could be consistent with cardiogenic or noncardiogenic pulmonary edema, bilateral pneumonia or both. Clinical correlation as the presence or absence of parameters of infection recommended.Diffuse peribronchial thickening consistent with bronchitis which could be acute, chronic, or bothBronchiectasis as described bilaterallyRight pleural effusion as described in a somewhat unusual distribution. Follow-up until complete resolution is recommended in order to exclude underlying pleural abnormalityElectronically signed by: ALENA RILEY (Aug 19, 2020 11:24:03)
[2020-08-19] MEDS ORDERED: ZOFRAN TAB 4 MG PO PRN (14:40)
[2020-08-19] MEDS ORDERED: MILK OF MAGNESIA PO PRN (14:40)
[2020-08-19] MEDS: XOPENEX 1.25 MG/3 ML NEBULE NEB SCH ×3 (14:48→20:39)
[2020-08-19] MEDS ORDERED: NS 1/2 1000 ML IV 1,000 ML IV ONE (15:03)
[2020-08-19] MEDS: NS 1/2 1000 ML IV 1,000 ML IV SCH (15:06)
[2020-08-19] MEDS: VITAMIN D3 25 mcg (1,000 UNITS) PO SCH ×2 (15:21→16:26)
[2020-08-19] MEDS: ROBITUSSIN DM PO SCH ×3 (15:21→22:10)
[2020-08-19] MEDS: MAG-OX TAB PO SCH (16:26)
[2020-08-19] MEDS: LASIX PO SCH (16:28)
[2020-08-19] MEDS: SYNTHROID 25 mcg TAB PO SCH (16:28)
[2020-08-19] MEDS: CORDARONE TAB 200 MG PO SCH (16:29)
[2020-08-19] MEDS ORDERED: MELATONIN PO PRN (21:00)
[2020-08-19] MEDS: PROTONIX TAB 40 MG PO SCH (22:10)
[2020-08-19] MEDS: COLACE CAP 100 MG PO SCH (22:10)
[2020-08-19] MEDS: ELIQUIS PO SCH (22:10)
[2020-08-19] MEDS: LOPRESSOR TAB 50 MG PO SCH (22:10)
[2020-08-19] MEDS: KLOR-CON PO SCH (22:10)
[2020-08-19] MEDS: VIBRAMYCIN 100 MG in NS 100 ML IV + SPIKE MINIBAG* 100 ML IV SCH (22:12)
[2020-08-20] MEDS: TYLENOL 325 MG TAB PO PRN (00:10)
[2020-08-20] MEDS: LOPRESSOR TAB 50 MG PO SCH ×2 (00:19→20:35)
[2020-08-20] MEDS: NS 1/2 1000 ML IV 1,000 ML IV SCH ×2 (05:10→18:52)
--- NOTE | 2020-08-20 05:15 | RAD ---
PROCEDURE: Chest X-ray 1 View .HISTORY: PULMONARY EDEMA .TECHNIQUE: AP view .COMPARISON: 08/19/2020.TECHNICAL QUALITY: Satisfactory .FINDINGS:Unchanged start size upper limits of normal.Mediastinum and hilar regions show no masses or lymphadenopathy .Increased central vascularity similar to increased compared to previous study.Continued increased perihilar interstitial markings with mild improvement. Possible small amount of fluid in the minor fissure on the right and mild blunting of the lateral costophrenic angles.No acute bony abnormality .IMPRESSION:Continued vascular congestion and mild failure.Electronically signed by: Eleuterio Owusu (Aug 20, 2020 05:12:52)
[2020-08-20] MEDS: XOPENEX 1.25 MG/3 ML NEBULE NEB SCH ×3 (05:30→21:09)
[2020-08-20 05:40] LABS: BASOPHILS % (AUTO) 0.8 % (0.2-1.0); EOSINOPHILS # (AUTO) 0.1 x10^3/uL (0.0-0.2); EOSINOPHILS % (AUTO) 1.3 % (0.9-2.9); HEMATOCRIT 26.8 % (36.0-47.0); HEMOGLOBIN 8.8 g/dL (12.0-16.0); LYMPHOCYTES # (AUTO) 0.7 X10^3/uL (1.3-2.9); MEAN CORPUSCULAR HEMOGLOBIN 27.1 pg (27.0-34.0); MEAN CORPUSCULAR VOLUME 82.3 fL (80.0-100.0); MEAN PLATELET VOLUME 9.9 fL (7.4-11.0); MONOCYTES # (AUTO) 0.4 x10^3/uL (0.3-0.8); MONOCYTES % (AUTO) 6.2 % (0.0-13.0); NEUTROPHILS # (AUTO) 5.1 x10^3/uL (2.2-4.8); NEUTROPHILS % (AUTO) 80.7 % (42.0-75.0); PLATELET COUNT 189 X10^3/uL (150.0-450.0); RED BLOOD COUNT 3.25 X10^6/uL (3.5-5.4); RED CELL DISTRIBUTION WIDTH 15.9 % (11.6-16.5); WHITE BLOOD COUNT 6.3 X10^3/uL (3.6-10.0)
[2020-08-20] MEDS ORDERED: MOBIC TAB 15 MG PO ONE (05:42)
[2020-08-20 05:50] LABS: ALANINE AMINOTRANSFERASE 25 Units/L (12-78); ALBUMIN 2.7 g/dL (3.4-5.0); ALKALINE PHOSPHATASE 75 Units/L (46-116); ASPARTATE AMINO TRANSFERASE 23 Units/L (15-37); BLOOD UREA NITROGEN 17 mg/dL (7-18); CALCIUM 8.2 mg/dL (8.5-10.1); CARBON DIOXIDE 29.8 mmol/L (21-32); CHLORIDE 103 mmol/L (98-107); COR CA(FOR HYPOALB) 9.2 mg/dL (8.5-10.1); COR NA(FOR HYPERGLY) 143 mmol/L (136-145); CREATININE 0.87 mg/dL (0.55-1.02); SODIUM 142 mmol/L (136-145); TOTAL PROTEIN 7.2 g/dL (6.4-8.2); eGFR NON BLACK RACES > 60 (>60)
[2020-08-20] MEDS: MOBIC TAB 15 MG PO SCH (05:59)
[2020-08-20] MEDS: CORDARONE TAB 200 MG PO SCH ×2 (06:00→17:15)
[2020-08-20] MEDS: CARDIZEM CD 120 MG 24-HR PO SCH (09:54)
[2020-08-20] MEDS: COLACE CAP 100 MG PO SCH ×2 (09:54→20:35)
[2020-08-20] MEDS: ELIQUIS PO SCH ×2 (09:55→20:34)
[2020-08-20] MEDS: PROTONIX TAB 40 MG PO SCH ×2 (09:55→20:35)
[2020-08-20] MEDS: CYMBALTA PO SCH (09:55)
[2020-08-20] MEDS: CATAPRES TAB 0.1 MG PO SCH (09:55)
[2020-08-20] MEDS: VIBRAMYCIN 100 MG in NS 100 ML IV + SPIKE MINIBAG* 100 ML IV SCH ×2 (09:56→20:35)
[2020-08-20] MEDS: VSL#3 PO SCH (09:56)
[2020-08-20] MEDS: ROCEPHIN 1 GRAM IV PREMIX 1 G/50 ML IV.SOLN. IV SCH (09:56)
[2020-08-20] MEDS: ROBITUSSIN DM PO SCH ×4 (09:56→20:34)
[2020-08-20] MEDS: KLOR-CON PO SCH ×2 (09:59→21:41)
[2020-08-20] MEDS: LASIX PO SCH ×2 (10:00→17:15)
[2020-08-20] MEDS: VITAMIN D3 25 mcg (1,000 UNITS) PO SCH (14:16)
--- NOTE | 2020-08-20 15:56 | DR.H&P ---
H&P - History & Physical for Day of: H&P Date: 08/19/20 - Chief Complaint Chief Complaint: SHORTNESS OF BREATH - History of Present Illness History of Present Illness: IS A 79 YEAR OLD PATIENT OF [facility]. SHE PRESENTED TO THE HOSPITAL WITH COMPLAINTS OF SHORTNESS OF BREATH. SYMPTOMS STARTED ONE DAY PRIOR AND HAVE PROGRESSIVELY GOTTEN WORSE. SHE DENIES CHEST PAIN, PALPITATIONS, DIAPHORESIS, OR NAUSEA/VOMITING. PATIENT WAS RECENTLY DIAGNOSED WITH A.FIB/A.FLUTTER. OTHER MEDICAL HISTORY INCLUDES HYPOTHYROIDISM, LUPUS, SJOGRENS SYNDROME, HTN, CVA, TIA, TAVG, CHOLECYSTECTOMY, HIP SURGERY, HYSTERECTOMY, AND TUBAL LIGATION. SHE IS SCHEDULED FOR A SEAN AND CARDIOVERSION NEXT WEEK. SHE IS CURRENTLY A RESIDENT AT THE [facility] IN [place] FOR REHAB. SHE IS UNDER THE CARE OF , [employer]LE[employer]. SHE CURRENTLY TAKES CARDIZEM, AMIODARONE, AND ELIQUIS FOR A.FIB/A.FLUTTER. ON ARRIVAL TO THE HOSPITAL, VITALS WERE 97.6-100-22-86%NC-166/102. SHE WAS PLACED ON OXYGEN VIA NASAL CANNULA AT 2 LITERS/MINUTE. LABS WERE OBTAINED. ABNORMAL LAB VALUES INCLUDE THE FOLLOWING: HGB 10.4, HCT 32.0, D-DIMER 1.17, POTASSIUM 3.1, CARBON DIOXIDE 32.7, BUN 20, GLUCOSE 122, CALCIUM 8.3, TOTAL BILI 1.10, ALBUMIN 3.1, GLOBULIN 4.8, TSH 3RD GEN 3.954. URINALYSIS IS UNREMARKABLE. ABG OBTAINE AND REVEALED: PH 7.470, PC02 48, P02 112, HC03 34.9, 02 SAT 99, BASE EXCESS 9.8, A-A GRADIENT 28, FI02 28.0. BLOOD CULTURES WERE SET UP. EKG REVEALED: ATRIAL FLUTTER WITH HR 99. CHEST XRAY REVEALED: 1. Bilateral pulmonary edema or pneumonia 2. Stable small right effusion. A CHEST CTA WAS OBTAINED AND REVEALED: No evidence for acute pulmonary thromboembolic disease. Cardiomegaly. Bilateral perihilar alveolar filling and bilateral perihilar ground-glass infiltrates which could be consistent with cardiogenic or noncardiogenic pulmonary edema, bilateral pneumonia or both. Clinical correlation as the presence or absence of parameters of infection recommended. Diffuse peribronchial thickening consistent with bronchitis which could be acute, chronic, or both. Bronchiectasis bilaterally. Right pleural effusion as described in a somewhat unusual distribution. Follow- up until complete resolution is recommended in order to exclude underlying pleural abnormality. IN THE ER, A DOUGLAS CATHETER WAS PLACED. SHE WAS GIVEN XOPENEX NEB X 2, LASIX 40MG IV X 1, KLOR-CON 20MEQ PO X 1, ROCEPHIN 1G IV X 1. SHE WAS ADMITTED TO THE HOSPTIAL FOR FURTHER EVALUATION AND TREATMENT OF PULMONARY EDEMA, PNEUMONIA, ATRIAL FLUTTER, HYPOKALEMIA, AND HTN. SHE WAS STARTED ON 1/2NS AT 100 ML/HR, DOXYCYCLINE 100MG IV Q12H, ROCEPHIN 1G IV DAILY, XOPENEX NEBS TID, ROBITUSSIN DM 10 ML PO QID, TYLENOL 650MG PO Q4H PRN, COLACE 100MG PO BID, MILD OF MAG 30ML PO BID PRN, KLOR-CON 20MEQ PO BID. HER HOME MEDICATIONS OF ELIQUIS,AMIODARONE, VITAMIN D3, CATAPRES, CARDIZEM, CYMBALTA, SYNTHROID, MAG-OX, MELATONIN, MOBIC, LOPRESSOR, ZOFRAN, AND PROTONIX WERE RESUMED. OTHERWISE, WE PLAN TO FOLLOW UP WITH AM LABS AND CHEST XRAY. TIME SPENT ON CLINICAL ASSESSMENT, REVIEWING LABS AND IMAGING, DECISION MAKING, AND DOCUMENTATION GREATER THAN 75 MINUTES. - Past Medical History Past Medical History: Anxiety, Arthritis, Coronary Artery Disease, CVA, Dyslipidemia, Migraines, Hypertension, Hypothyroidism Additional Medical History: Diverticulosis, Muscle Weakness, LUPUS, SJOGREN'S SYNDROME, - Past Surgical History Surgical History: Bowel Resection, Cholecystectomy, Hysterectomy, Ortho Surgery Additional Surgical History: Heart Cath, Tubal Ligation, Breast Biopsies, Lumpectomy, TAVR - Family History Family Medical History: [place], Coronary Artery Disease, Hypertension - Social History Does patient currently use any type of tobacco product: No Have you used tobacco products in the last 12 months: No Type of Tobacco Use: None Alcohol Use: None Drug Use: None - Medications Home Medications: codeine Allergy (Verified 03/16/18 16:45) levofloxacin [From Levaquin] Allergy (Verified 03/16/18 16:45) Sulfa (Sulfonamide Antibiotics) [SULFA] Allergy (Verified 03/16/18 16:45) CONTINUE taking the following medications acetaminophen [Tylenol] 650 mg PO Q4H PRN 08/19/20 [History] cholecalciferol (vitamin D3) [Vitamin D3] 50 mcg PO ONCE 08/19/20 [History] clonidine HCl 0.1 mg PO DAILY 08/19/20 [History] diltiazem HCl 120 mg PO DAILY 08/19/20 [History] melatonin 10 mg PO HS PRN 08/19/20 [History] metoprolol tartrate 100 mg PO BID 08/20/20 [History] - Review of Systems Constitutional: Weakness Eyes: No Symptoms Reported ENT: No Symptoms Reported Respiratory: No Symptoms Reported Cardiovascular: See HPI Gastrointestinal: No Symptoms Reported Genitourinary: No Symptoms Reported Musculoskeletal: No Symptoms Reported Skin: No Symptoms Reported Neurological: Weakness - Physical Exam Vital Signs: Temperature 98.3 F Pulse Rate 97 Respiratory Rate 24 Blood Pressure [Left Arm] 165/77 Blood Pressure [Right Arm] 144/95 Blood Pressure 138/83 O2 Sat by Pulse Oximetry 97 Oriented: Normal Eyes: Normal Ear: Normal Nose: Normal Throat: Normal Respiratory: Diminished Throughout Cardiovascular: Irregular : Normal Auscultation: Bowel Sounds: Normal Palpation: Normal Tenderness: Normal Skin: Normal Musculoskeletal: Normal Psychiatric: Normal Mood Description: Calm Affect: Normal Speech Pattern: Clear - Assessment/Plan (1) Pulmonary edema Qualifiers: Chronicity: acute Qualified Code(s): J81.0 - Acute pulmonary edema Status: Acute Plan: ADMIT, 1/2NS AT 100 ML/HR, DOXYCYCLINE 100MG IV Q12H, ROCEPHIN 1G IV DAILY, XOPENEX NEBS TID, ROBITUSSIN DM 10 ML PO QID, TYLENOL 650MG PO Q4H PRN, COLACE 100MG PO BID, MILD OF MAG 30ML PO BID PRN, KLOR-CON 20MEQ PO BID. HER HOME MEDICATIONS OF ELIQUIS, AMIODARONE, VITAMIN D3, CATAPRES, CARDIZEM, CYMBALTA, SYNTHROID, MAG-OX, MELATONIN, MOBIC, LOPRESSOR, ZOFRAN, AND PROTONIX WERE RESUMED. (2) Pneumonia Qualifiers: Pneumonia type: due to unspecified organism Laterality: bilateral Lung location: unspecified part of lung Qualified Code(s): J18.9 - Pneumonia, unspecified organism Status: Acute (3) Atrial fibrillation/flutter Status: Acute (4) Acute hypokalemia Status: Acute (5) Essential hypertension Status: Chronic - Allergies Allergies/Adverse Reactions: Allergies Allergy/AdvReac Type Severity Reaction Status Date / Time codeine Allergy Verified 03/16/18 16:45 levofloxacin [From Levaquin] Allergy Verified 03/16/18 16:45 Sulfa (Sulfonamide Allergy Verified 03/16/18 16:45 Antibiotics) [SULFA]
[2020-08-20] MEDS: SYNTHROID 25 mcg TAB PO SCH (17:15)
[2020-08-20] MEDS: MAG-OX TAB PO SCH (17:15)
[2020-08-20] MEDS ORDERED: POTASSIUM CHL 60 MEQ/NS 0.45% 500 ML IV PRN (21:41)
[2020-08-20] MEDS ORDERED: POTASSIUM CHLORIDE LIQ 20 MEQ UDC PO PRN (21:41)
[2020-08-20] MEDS ORDERED: KLOR-CON PO PRN (21:41)
[2020-08-20] MEDS ORDERED: MICRO K EXTEN CAP 10 MEQ PO PRN (21:41)
[2020-08-20] MEDS ORDERED: K-RIDER 10 MEQ/NS 100 ML 10 MEQ/100 ML BAG IV PRN (21:41)
[2020-08-20] MEDS ORDERED: POTASSIUM CHL 40 MEQ/NS 0.45% 500 ML IV PRN (21:41)
[2020-08-20] MEDS ORDERED: K-DUR TAB 20 MEQ PO PRN (21:41)
[2020-08-21 04:50] LABS: BASOPHILS # (AUTO) 0.1 X10^3/uL (0.0-0.1); BASOPHILS % (AUTO) 0.8 % (0.2-1.0); EOSINOPHILS # (AUTO) 0.2 x10^3/uL (0.0-0.2); EOSINOPHILS % (AUTO) 3.1 % (0.9-2.9); HEMATOCRIT 28.3 % (36.0-47.0); HEMOGLOBIN 9.3 g/dL (12.0-16.0); LYMPHOCYTES # (AUTO) 0.7 X10^3/uL (1.3-2.9); MEAN CORPUSCULAR HEMOGLOBIN 26.9 pg (27.0-34.0); MEAN CORPUSCULAR HGB CONC 32.7 g/dL (33.0-35.0); MEAN CORPUSCULAR VOLUME 82.1 fL (80.0-100.0); MEAN PLATELET VOLUME 10.1 fL (7.4-11.0); MONOCYTES # (AUTO) 0.4 x10^3/uL (0.3-0.8); MONOCYTES % (AUTO) 5.5 % (0.0-13.0); NEUTROPHILS # (AUTO) 6.2 x10^3/uL (2.2-4.8); NEUTROPHILS % (AUTO) 81.6 % (42.0-75.0); PLATELET COUNT 219 X10^3/uL (150.0-450.0); RED BLOOD COUNT 3.45 X10^6/uL (3.5-5.4); RED CELL DISTRIBUTION WIDTH 16.6 % (11.6-16.5); WHITE BLOOD COUNT 7.6 X10^3/uL (3.6-10.0)
[2020-08-21 05:04] LABS: ALANINE AMINOTRANSFERASE 25 Units/L (12-78); ALBUMIN 2.7 g/dL (3.4-5.0); ALKALINE PHOSPHATASE 84 Units/L (46-116); ASPARTATE AMINO TRANSFERASE 21 Units/L (15-37); BLOOD UREA NITROGEN 17 mg/dL (7-18); CALCIUM 8.2 mg/dL (8.5-10.1); CARBON DIOXIDE 30.7 mmol/L (21-32); CHLORIDE 100 mmol/L (98-107); COR CA(FOR HYPOALB) 9.2 mg/dL (8.5-10.1); COR NA(FOR HYPERGLY) 139 mmol/L (136-145); CREATININE 0.73 mg/dL (0.55-1.02); SODIUM 138 mmol/L (136-145); TOTAL PROTEIN 7.4 g/dL (6.4-8.2); eGFR NON BLACK RACES > 60 (>60)
[2020-08-21] MEDS: MOBIC TAB 15 MG PO SCH (06:07)
[2020-08-21] MEDS: CORDARONE TAB 200 MG PO SCH ×2 (06:11→17:17)
[2020-08-21] MEDS: XOPENEX 1.25 MG/3 ML NEBULE NEB SCH ×4 (06:26→20:05)
[2020-08-21] MEDS ORDERED: PULMICORT NEB TX 0.5 MG NEB ONE (07:56)
[2020-08-21] MEDS: PULMICORT NEB TX 0.5 MG NEB SCH ×3 (07:57→20:05)
[2020-08-21] MEDS: CATAPRES TAB 0.1 MG PO SCH (08:12)
[2020-08-21] MEDS: CARDIZEM CD 120 MG 24-HR PO SCH (08:12)
[2020-08-21] MEDS ORDERED: VIBRAMYCIN IV ONE (08:17)
[2020-08-21] MEDS: LASIX PO SCH (08:21)
[2020-08-21] MEDS: ROCEPHIN 1 GRAM IV PREMIX 1 G/50 ML IV.SOLN. IV SCH (08:23)
[2020-08-21] MEDS: VIBRAMYCIN 100 MG in NS 100 ML IV + SPIKE MINIBAG* 100 ML IV SCH ×2 (08:24→21:20)
[2020-08-21] MEDS: LOPRESSOR TAB 50 MG PO SCH ×2 (08:24→20:39)
[2020-08-21] MEDS: COLACE CAP 100 MG PO SCH ×2 (08:25→20:40)
[2020-08-21] MEDS: PROTONIX TAB 40 MG PO SCH ×2 (08:25→20:40)
[2020-08-21] MEDS: CYMBALTA PO SCH (08:25)
[2020-08-21] MEDS: ROBITUSSIN DM PO SCH ×4 (08:26→20:39)
[2020-08-21] MEDS: ELIQUIS PO SCH ×2 (08:26→20:39)
[2020-08-21] MEDS: KLOR-CON PO SCH ×2 (08:26→23:13)
[2020-08-21] MEDS: VSL#3 PO SCH (09:30)
--- NOTE | 2020-08-21 10:08 | RAD ---
HISTORYCHF, PNEUMONIASTUDYCHEST x-ray, 1 VIEWCOMPARISONX-ray 08/20/2020FINDINGSCHF and pulmonary edema are suspected. Bilateral pneumonia is not excluded. Lung infiltrates have worsened since prior study. Stent is seen in the heart. Mild fluid is seen in the right minor fissure. Likely small bilateral pleural effusions are unchanged.IMPRESSIONWorsening bilateral lung infiltrates could be worsening pulmonary edema and/or pneumonia. Persistent CHF.Electronically signed by: Wilton Kendrick (Aug 21, 2020 10:06:09)
[2020-08-21] MEDS ORDERED: CATAPRES-TTS-1 TD SCH (11:00)
[2020-08-21] MEDS ORDERED: LASIX IVP SCH (11:00)
[2020-08-21] MEDS ORDERED: LASIX IVP ONE (15:00)
[2020-08-21] MEDS: VITAMIN D3 25 mcg (1,000 UNITS) PO SCH (15:14)
--- NOTE | 2020-08-21 15:45 | PCM.PROG ---
Progress Note - Progress Note for Day of Date of Exam: 08/20/20 - Subjective Subjective: Mrs. Gonsales is a 79-year-old white female, patient of YURIDIA Warren, admitted for pulmonary edema, pneumonia, a-fib/a-flutter, hypokalemia, and HTN. She is status post aortic valve replacement approximately a month and a half ago. She is scheduled for a SEAN and cardioversion on 08/26/20. She was noted to be in atrial fibrillation, atrial flutter on admission. Today, she is alert and oriented, sitting up in bed on morning rounds. She complains of generalized weakness and shortness of breath today. On examination, the patient continues with controlled rate, but irregular rhythm. Bilateral lungs are noted with diminished lung sounds throughout. Abdomen is round, soft, and non-tender with normal bowel sounds noted in all quadrants. Her vitals this morning are: 98.3-417-90-100%-160/94. Labs were obtained. Abnormal lab values include the following: RBC 3.25, HGB 8.8, HCT 26.8, POTASSIUM 3.2, GLUCOSE 128, CALCIUM 8.2, ALBUMIN 2.7. BLOOD CULTURES ARE PENDING. A chest xray was obtained today and revealed: Continued vascular congestion and mild failure. She is currently receivin/2NS AT 100 ML/HR, DOXYCYCLINE 100MG IV Q12H, ROCEPHIN 1G IV DAILY, XOPENEX NEBS TID, ROBITUSSIN DM 10 ML PO QID, TYLENOL 650MG PO Q4H PRN, COLACE 100MG PO BID, MILD OF MAG 30ML PO BID PRN, KLOR-CON 20MEQ PO BID. HER HOME MEDICATIONS OF ELIQUIS, AMIODARONE, VITAMIN D3, CATAPRES, CARDIZEM, CYMBALTA, SYNTHROID, MAG-OX, MELATONIN, MOBIC, LOPRESSOR, ZOFRAN, AND PROTONIX WERE RESUMED. We will continue with current plan of care today. Otherwise, we will follow up with AM labs and continue to monitor. Time spent on clinical assessment, reviewing labs and imaging, decision making, and documentation greater than 45 minutes. - Past Medical Family Social History Past Med/Fam/Surg Hx: No changes since H&P Allergies: Allergies codeine Allergy (Verified 03/16/18 16:45) levofloxacin [From Levaquin] Allergy (Verified 03/16/18 16:45) Sulfa (Sulfonamide Antibiotics) [SULFA] Allergy (Verified 03/16/18 16:45) - Review of Systems ROS: No change since H&P - Vital Signs and I&O's Vital Signs: Temperature 98.4 F Pulse Rate 102 Respiratory Rate 26 Blood Pressure [Left Arm] 165/77 Blood Pressure [Right Arm] 144/95 Blood Pressure 131/89 O2 Sat by Pulse Oximetry 99 Intake and Output: Intake & Output 08/19/20 08/20/20 08/21/20 08/22/20 11:59 11:59 11:59 11:59 Intake Total 2470 / 2470 1384 / 1384 1028 / 1028 Output Total 225 / 225 475 / 475 700 / 700 Balance 2245 / 2245 909 / 909 328 / 328 - Physical Exam Oriented: Normal Eyes: Normal Ear: Normal Nose: Normal Throat: Normal Cardiovascular: Irregular : Normal Auscultation: Bowel Sounds: Normal Palpation: Normal Tenderness: Normal Skin: Normal Musculoskeletal: Normal Psychiatric: Normal Mood Description: Calm Affect: Normal Speech Pattern: Clear, Appropriate - Laboratory and Diagnostics Result Diagrams: 08/21/20 04:03 08/21/20 10:00 Labs: 08/19/20 11:47 Blood Blood Culture - Preliminary 08/19/20 11:40 Blood Blood Culture - Preliminary Laboratory WBC 7.6 X10^3/uL (3.6-10.0) 08/21/20 04:03 RBC 3.45 X10^6/uL (3.5-5.4) L 08/21/20 04:03 Hgb 9.3 g/dL (12.0-16.0) L 08/21/20 04:03 Hct 28.3 % (36.0-47.0) L 08/21/20 04:03 MCV 82.1 fL (80.0-100.0) 08/21/20 04:03 MCH 26.9 pg (27.0-34.0) L 08/21/20 04:03 MCHC 32.7 g/dL (33.0-35.0) L 08/21/20 04:03 RDW 16.6 % (11.6-16.5) H 08/21/20 04:03 Plt Count 219 X10^3/uL (150.0-450.0) 08/21/20 04:03 MPV 10.1 fL (7.4-11.0) 08/21/20 04:03 Neut % (Auto) 81.6 % (42.0-75.0) H 08/21/20 04:03 Lymph % (Auto) 9.0 % (21.0-51.0) L 08/21/20 04:03 [place] % (Auto) 5.5 % (0.0-13.0) 08/21/20 04:03 Eos % (Auto) 3.1 % (0.9-2.9) H 08/21/20 04:03 Baso % (Auto) 0.8 % (0.2-1.0) 08/21/20 04:03 Neut # (Auto) 6.2 x10^3/uL (2.2-4.8) H 08/21/20 04:03 Lymph # (Auto) 0.7 X10^3/uL (1.3-2.9) L 08/21/20 04:03 [place] # (Auto) 0.4 x10^3/uL (0.3-0.8) 08/21/20 04:03 Eos # (Auto) 0.2 x10^3/uL (0.0-0.2) 08/21/20 04:03 Baso # (Auto) 0.1 X10^3/uL (0.0-0.1) 08/21/20 04:03 Absolute Nucleated RBC 0.0 /100WBC 08/21/20 04:03 D-Dimer 1.17 ug/ml (0.0-0.57) H* 08/19/20 09:15 Sample Site Rbra 08/19/20 08:42 ABG pH 7.470 (7.35-7.45) H 08/19/20 08:42 ABG pCO2 48.0 mmHg (35.0-45.0) H 08/19/20 08:42 ABG pO2 112.0 mmHg (80.0-100.0) H 08/19/20 08:42 ABG HCO3 34.9 mmol/L (22-26) H* 08/19/20 08:42 ABG O2 Saturation 99.0 % (90-100) 08/19/20 08:42 ABG Base Excess 9.8 mmol/L (-2.0-2.0) H 08/19/20 08:42 Cole Test Na 08/19/20 08:42 A-a Gradient 28.0 mmHg 08/19/20 08:42 FiO2 28.0 08/19/20 08:42 Blood Gas Comments Pt gustavo well eb 08/19/20 08:42 Sodium 138 mmol/L (136-145) 08/21/20 04:03 Corrected Sodium 139 mmol/L (136-145) 08/21/20 04:03 Potassium 3.7 mmol/L (3.5-5.1) 08/21/20 10:00 Chloride 100 mmol/L (98-107) 08/21/20 04:03 Carbon Dioxide 30.7 mmol/L (21-32) 08/21/20 04:03 BUN 17 mg/dL (7-18) 08/21/20 04:03 Creatinine 0.73 mg/dL (0.55-1.02) 08/21/20 04:03 Est GFR (MDRD) Af Amer > 60 (>60) 08/21/20 04:03 Est GFR (MDRD) Non-Af > 60 (>60) 08/21/20 04:03 Glucose 143 mg/dL (65-99) H 08/21/20 04:03 Calcium 8.2 mg/dL (8.5-10.1) L 08/21/20 04:03 Corrected Calcium 9.2 mg/dL (8.5-10.1) 08/21/20 04:03 Total Bilirubin 0.80 mg/dL (0.2-1.0) 08/21/20 04:03 AST 21 Units/L (15-37) 08/21/20 04:03 ALT 25 Units/L (12-78) 08/21/20 04:03 Alkaline Phosphatase 84 Units/L (46-116) 08/21/20 04:03 Creatine Kinase 41 Units/L (26-192) 08/19/20 08:42 CK-MB (CK-2) < 1.0 ng/mL (0-4.0) 08/19/20 08:42 CK/CKMB % Calc 2.4 % (<4) 08/19/20 08:42 Troponin I 0.03 ng/mL (0-1.5) 08/19/20 08:42 Total Protein 7.4 g/dL (6.4-8.2) 08/21/20 04:03 Albumin 2.7 g/dL (3.4-5.0) L 08/21/20 04:03 Globulin 4.7 g/dL (2.5-4.5) H 08/21/20 04:03 Albumin/Globulin Ratio 0.6 Ratio (1.1-2.1) L 08/21/20 04:03 TSH 3rd Generation 3.954 uIU/mL (0.358-3.74) H 08/19/20 09:15 Specimen Type Catherized urine 08/19/20 10:42 Urine Color Yellow (YELLOW) 08/19/20 10:42 Urine Appearance Clear (CLEAR) 08/19/20 10:42 Urine pH 6.0 (5.0 - 8.0) 08/19/20 10:42 Ur Specific [place] 1.020 (1.000-1.030) 08/19/20 10:42 Urine Protein 3+ (NEGATIVE) 08/19/20 10:42 Urine Glucose (UA) Negative (NEGATIVE) 08/19/20 10:42 Urine Ketones Negative (NEGATIVE) 08/19/20 10:42 Urine Occult Blood 1+ (NEGATIVE) 08/19/20 10:42 Urine Nitrite Negative (NEGATIVE) 08/19/20 10:42 Urine Bilirubin Negative (NEGATIVE) 08/19/20 10:42 Urine Urobilinogen Normal (NORMAL) 08/19/20 10:42 Ur Leukocyte Esterase Negative (NEGATIVE) 08/19/20 10:42 Urine RBC 0-2 /HPF (0-3) 08/19/20 10:42 Urine WBC None seen /HPF (0-5) 08/19/20 10:42 Ur Squamous Epith Cells Few /HPF (NEGATIVE) 08/19/20 10:42 Urine Bacteria Negative /HPF (NEGATIVE) 08/19/20 10:42 Ur Culture Indicated? No/not indicated 08/19/20 10:42 - Plan (1) Pulmonary edema Status: Acute Qualifiers: Chronicity: acute Qualified Code(s): J81.0 - Acute pulmonary edema Plan: 1/2NS AT 100 ML/HR, DOXYCYCLINE 100MG IV Q12H, ROCEPHIN 1G IV DAILY, XO PENEX NEBS TID, ROBITUSSIN DM 10 ML PO QID, TYLENOL 650MG PO Q4H PRN, COLACE 100MG PO BID, MILD OF MAG 30ML PO BID PRN, KLOR-CON 20MEQ PO BID. HER HOME MEDICATIONS OF ELIQUIS, AMIODARONE, VITAMIN D3, CATAPRES, CARDIZEM, CYMBALTA, SYNTHROID, MAG-OX, MELATONIN, MOBIC, LOPRESSOR, ZOFRAN, AND PROTONIX WERE RESUMED. (2) Pneumonia Status: Acute Qualifiers: Pneumonia type: due to unspecified organism Laterality: bilateral Lung location: unspecified part of lung Qualified Code(s): J18.9 - Pneumonia, unspecified organism (3) Atrial fibrillation/flutter Status: Acute (4) Acute hypokalemia Status: Acute (5) Essential hypertension Status: Chronic
[2020-08-21] MEDS: SYNTHROID 25 mcg TAB PO SCH (16:19)
[2020-08-21] MEDS: MAG-OX TAB PO SCH (16:19)
[2020-08-21] MEDS: NS 1/2 1000 ML IV 1,000 ML IV SCH ×2 (16:25→23:13)
[2020-08-21] MEDS ORDERED: LASIX IVP PRN (21:00)
[2020-08-22] MEDS: XOPENEX 1.25 MG/3 ML NEBULE NEB SCH ×4 (00:58→20:59)
[2020-08-22] MEDS: TYLENOL 325 MG TAB PO PRN ×2 (00:58→20:46)
[2020-08-22 04:50] LABS: BASOPHILS % (AUTO) 0.4 % (0.2-1.0); EOSINOPHILS # (AUTO) 0.1 x10^3/uL (0.0-0.2); EOSINOPHILS % (AUTO) 1.4 % (0.9-2.9); HEMATOCRIT 27.7 % (36.0-47.0); HEMOGLOBIN 9.1 g/dL (12.0-16.0); LYMPHOCYTES # (AUTO) 0.6 X10^3/uL (1.3-2.9); LYMPHOCYTES % (AUTO) 7.5 % (21.0-51.0); MEAN CORPUSCULAR HEMOGLOBIN 26.6 pg (27.0-34.0); MEAN CORPUSCULAR HGB CONC 32.7 g/dL (33.0-35.0); MEAN CORPUSCULAR VOLUME 81.4 fL (80.0-100.0); MEAN PLATELET VOLUME 9.8 fL (7.4-11.0); MONOCYTES # (AUTO) 0.5 x10^3/uL (0.3-0.8); MONOCYTES % (AUTO) 6.6 % (0.0-13.0); NEUTROPHILS # (AUTO) 6.3 x10^3/uL (2.2-4.8); NEUTROPHILS % (AUTO) 84.1 % (42.0-75.0); PLATELET COUNT 228 X10^3/uL (150.0-450.0); RED BLOOD COUNT 3.41 X10^6/uL (3.5-5.4); RED CELL DISTRIBUTION WIDTH 16.4 % (11.6-16.5); WHITE BLOOD COUNT 7.5 X10^3/uL (3.6-10.0)
[2020-08-22] MEDS ORDERED: NS 1/2 1000 ML IV 1,000 ML IV ONE (04:57)
[2020-08-22] MEDS: NS 1/2 1000 ML IV 1,000 ML IV SCH ×2 (05:03→18:43)
[2020-08-22 05:05] LABS: ALANINE AMINOTRANSFERASE 24 Units/L (12-78); ALBUMIN 2.8 g/dL (3.4-5.0); ALKALINE PHOSPHATASE 96 Units/L (46-116); ASPARTATE AMINO TRANSFERASE 25 Units/L (15-37); BLOOD UREA NITROGEN 20 mg/dL (7-18); CALCIUM 8.4 mg/dL (8.5-10.1); CARBON DIOXIDE 29.6 mmol/L (21-32); CHLORIDE 100 mmol/L (98-107); COR CA(FOR HYPOALB) 9.4 mg/dL (8.5-10.1); COR NA(FOR HYPERGLY) 138 mmol/L (136-145); CREATININE 0.73 mg/dL (0.55-1.02); SODIUM 137 mmol/L (136-145); TOTAL PROTEIN 7.4 g/dL (6.4-8.2); eGFR NON BLACK RACES > 60 (>60)
[2020-08-22] MEDS: CORDARONE TAB 200 MG PO SCH ×2 (06:37→17:04)
--- NOTE | 2020-08-22 08:02 | RAD ---
HISTORYSOBSTUDYCHEST, 1 [id number]/11/2021.FINDINGSThe trachea is midline. The cardiac silhouette is enlarged similar to the comparison study. There are patchy bilateral airspace opacities and diffuse interstitial prominence throughout both lungs. There is blunting of both costophrenic angles suggesting small pleural effusions. There is no pneumothorax. The bony thorax is grossly unremarkable.IMPRESSIONBilateral multifocal pneumonia with small bilateral pleural effusions. Mild superimposed pulmonary edema is not excluded.Electronically signed by: GENA JOY (Aug 22, 2020 08:00:36)
[2020-08-22] MEDS: KLOR-CON PO SCH ×2 (09:03→20:45)
[2020-08-22] MEDS: CARDIZEM CD 120 MG 24-HR PO SCH (09:04)
[2020-08-22] MEDS: VSL#3 PO SCH (09:07)
[2020-08-22] MEDS: CYMBALTA PO SCH (09:07)
[2020-08-22] MEDS: ROBITUSSIN DM PO SCH ×4 (09:08→20:45)
[2020-08-22] MEDS: LOPRESSOR TAB 50 MG PO SCH ×2 (09:08→20:45)
[2020-08-22] MEDS: PULMICORT NEB TX 0.5 MG NEB SCH ×2 (09:08→20:59)
[2020-08-22] MEDS: COLACE CAP 100 MG PO SCH ×2 (09:08→20:44)
[2020-08-22] MEDS: PROTONIX TAB 40 MG PO SCH ×2 (09:09→20:45)
[2020-08-22] MEDS: ELIQUIS PO SCH ×2 (09:09→20:45)
[2020-08-22] MEDS: VIBRAMYCIN 100 MG in NS 100 ML IV + SPIKE MINIBAG* 100 ML IV SCH ×2 (09:22→20:46)
[2020-08-22] MEDS: LASIX IVP SCH ×2 (09:46→17:05)
[2020-08-22] MEDS: ROCEPHIN 1 GRAM IV PREMIX 1 G/50 ML IV.SOLN. IV SCH (09:47)
[2020-08-22 11:07] LABS: BILIRUBIN,URINE NEGATIVE (NEGATIVE); BLOOD/HEMOGLOBIN,URINE 5+ (NEGATIVE); GLUCOSE, URINE NEGATIVE (NEGATIVE); KETONES,URINE NEGATIVE (NEGATIVE); LEUKOCYTE ESTERASE ,URINE NEGATIVE (NEGATIVE); NITRITES,URINE NEGATIVE (NEGATIVE); PH,URINE 6.5 (5.0 - 8.0); PROTEIN,URINE 2+ (NEGATIVE); UROBILINOGEN,URINE NORMAL (NORMAL)
[2020-08-22 11:08] LABS: APPEARANCE,URINE SLIGHTLY HAZY (CLEAR); COLOR,URINE STRAW (YELLOW)
[2020-08-22 11:17] LABS: BACTERIA,URINE TRACE /HPF (NEGATIVE); RBC,URINE 30-50 /HPF (0-3); SQUAMOUS EPITHELIAL CELL,UR RARE /HPF (NEGATIVE)
[2020-08-22] MEDS ORDERED: VITAMIN D3 25 mcg (1,000 UNITS) PO ONE (15:17)
[2020-08-22] MEDS: VITAMIN D3 25 mcg (1,000 UNITS) PO SCH (15:22)
[2020-08-22] MEDS: MAG-OX TAB PO SCH (17:04)
[2020-08-22] MEDS: SYNTHROID 25 mcg TAB PO SCH (17:05)
--- NOTE | 2020-08-22 20:04 | RAD ---
HISTORYCentral lineSTUDYCHEST, 1 [id number]/12/2021FINDINGSRight central venous catheter terminates over the right atrium. Cardiomegaly and pulmonary vasculature congestion with diffuse perihilar and bibasilar airspace disease, unchanged. Trace bibasilar pleural effusions are similar. No pneumothorax.IMPRESSIONRight central venous catheter terminates over the right atrium. Otherwise stable chest.Electronically signed by: Marbin Barrett (Aug 22, 2020 20:02:09)
[2020-08-23] MEDS: NS 1/2 1000 ML IV 1,000 ML IV SCH (02:07)
[2020-08-23 04:35] LABS: BASOPHILS # (AUTO) 0.1 X10^3/uL (0.0-0.1); BASOPHILS % (AUTO) 0.7 % (0.2-1.0); EOSINOPHILS # (AUTO) 0.1 x10^3/uL (0.0-0.2); EOSINOPHILS % (AUTO) 1.7 % (0.9-2.9); HEMATOCRIT 27.4 % (36.0-47.0); LYMPHOCYTES # (AUTO) 0.8 X10^3/uL (1.3-2.9); LYMPHOCYTES % (AUTO) 10.6 % (21.0-51.0); MEAN CORPUSCULAR HEMOGLOBIN 26.5 pg (27.0-34.0); MEAN CORPUSCULAR HGB CONC 32.6 g/dL (33.0-35.0); MEAN CORPUSCULAR VOLUME 81.1 fL (80.0-100.0); MEAN PLATELET VOLUME 9.6 fL (7.4-11.0); MONOCYTES # (AUTO) 0.6 x10^3/uL (0.3-0.8); MONOCYTES % (AUTO) 7.9 % (0.0-13.0); NEUTROPHILS # (AUTO) 5.9 x10^3/uL (2.2-4.8); NEUTROPHILS % (AUTO) 79.1 % (42.0-75.0); PLATELET COUNT 273 X10^3/uL (150.0-450.0); RED BLOOD COUNT 3.38 X10^6/uL (3.5-5.4); RED CELL DISTRIBUTION WIDTH 16.4 % (11.6-16.5); WHITE BLOOD COUNT 7.5 X10^3/uL (3.6-10.0)
[2020-08-23 04:47] LABS: ALANINE AMINOTRANSFERASE 24 Units/L (12-78); ALBUMIN 2.8 g/dL (3.4-5.0); ALKALINE PHOSPHATASE 97 Units/L (46-116); ASPARTATE AMINO TRANSFERASE 23 Units/L (15-37); BLOOD UREA NITROGEN 18 mg/dL (7-18); CALCIUM 8.4 mg/dL (8.5-10.1); CARBON DIOXIDE 33.3 mmol/L (21-32); CHLORIDE 97 mmol/L (98-107); COR CA(FOR HYPOALB) 9.4 mg/dL (8.5-10.1); COR NA(FOR HYPERGLY) 136 mmol/L (136-145); CREATININE 0.72 mg/dL (0.55-1.02); SODIUM 135 mmol/L (136-145); TOTAL PROTEIN 7.3 g/dL (6.4-8.2); eGFR NON BLACK RACES > 60 (>60)
[2020-08-23] MEDS: XOPENEX 1.25 MG/3 ML NEBULE NEB SCH ×2 (05:17→13:06)
[2020-08-23] MEDS ORDERED: CARDIZEM CD 240 MG 24-HR PO SCH (06:00)
[2020-08-23] MEDS: CORDARONE TAB 200 MG PO SCH (06:08)
--- NOTE | 2020-08-23 06:18 | RAD ---
HISTORYSOBSTUDYCHEST, 1 [id number]/12/2021.FINDINGSTip of the right subclavian CVL projects over the cavoatrial junction. Cardiac silhouette is enlarged. Diffuse interstitial and patchy airspace opacities throughout both lungs are grossly unchanged. There is no enlarging pleural effusion or evidence of pneumothorax. The bony thorax is grossly unremarkable.IMPRESSIONUnchanged exam compared with the previous day.Electronically signed by: GENA JOY (Aug 23, 2020 06:16:42)
[2020-08-23] MEDS ORDERED: CARDIZEM CD 180 MG 24-HR PO SCH (09:00)
[2020-08-23] MEDS: PULMICORT NEB TX 0.5 MG NEB SCH (09:11)
[2020-08-23] MEDS: CYMBALTA PO SCH (09:38)
[2020-08-23] MEDS: LOPRESSOR TAB 50 MG PO SCH (09:38)
[2020-08-23] MEDS: ELIQUIS PO SCH (09:39)
[2020-08-23] MEDS: VSL#3 PO SCH (09:39)
[2020-08-23] MEDS: COLACE CAP 100 MG PO SCH (09:39)
[2020-08-23] MEDS: PROTONIX TAB 40 MG PO SCH (09:40)
[2020-08-23] MEDS: LASIX IVP SCH (09:40)
[2020-08-23] MEDS: ROBITUSSIN DM PO SCH ×2 (09:40→13:37)
[2020-08-23] MEDS: ROCEPHIN 1 GRAM IV PREMIX 1 G/50 ML IV.SOLN. IV SCH (09:56)
[2020-08-23] MEDS: VIBRAMYCIN 100 MG in NS 100 ML IV + SPIKE MINIBAG* 100 ML IV SCH (09:56)
[2020-08-23] MEDS: KLOR-CON PO SCH (09:57)
[2020-08-23 13:31] VITALS: BP 166/98
[2020-08-24] MEDS ORDERED: VITAMIN D3 25 mcg (1,000 UNITS) PO SCH (09:00)
--- NOTE | 2020-08-24 09:03 | PCM.PROG ---
Progress Note - Progress Note for Day of Date of Exam: 08/21/20 - Subjective Subjective: Mrs. Gonsales is a 79-year-old white female, patient of YURIDIA Warren, admitted for pulmonary edema, pneumonia, a-fib/a-flutter, hypokalemia, and HTN. She is status post aortic valve replacement approximately a month and a half ago. She is scheduled for a SEAN and cardioversion on 08/26/20. She was noted to be in atrial fibrillation, atrial flutter on admission. Today, she is alert and oriented, sitting up in bed on morning rounds. She complains of generalized weakness and shortness of breath today. On examination, the patient continues with controlled rate, but irregular rhythm. Bilateral lungs are noted with diminished lung sounds throughout. Abdomen is round, soft, and non-tender with normal bowel sounds noted in all quadrants. Her vitals this morning are: 98.7-979-41-100%-167/88. Labs were obtained. Abnormal lab values include the following: RBC 3.45, HGB 9.3, HCT 28.3, POTASSIUM 3.2, GLUCOSE 143, CALCIUM 8.2, ALBUMIN 2.7, GLOBULIN 4.7. BLOOD CULTURES ARE PENDING. Worsening bilateral lung infiltrates could be worsening pulmonary edema and/or pneumonia. Persistent CHF. She is currently receivin/2NS AT 100 ML/HR, DOXYCYCLINE 100MG IV Q12H, ROCEPHIN 1G IV DAILY, XOPENEX NEBS TID, ROBITUSSIN DM 10 ML PO QID, TYLENOL 650MG PO Q4H PRN, COLACE 100MG PO BID, MILD OF MAG 30ML PO BID PRN, KLOR-CON 20MEQ PO BID. HER HOME MEDICATIONS OF ELIQUIS, AMIODARONE, VITAMIN D3, CATAPRES, CARDIZEM, CYMBALTA, SYNTHROID, MAG-OX, MELATONIN, MOBIC, LOPRESSOR, ZOFRAN, AND PROTONIX WERE RESUMED. Today, we will add Lasix 40mg iv daily in the morning and as needed at night. We will also change the clonidine to a 0.1mg td patch. Otherwise, We will continue with current plan of care today. We will follow up with AM labs and continue to monitor. Time spent on clinical assessment, revi valdez labs and imaging, decision making, and documentation greater than 45 minutes. - Past Medical Family Social History Past Med/Fam/Surg Hx: No changes since H&P Allergies: Allergies codeine Allergy (Verified 03/16/18 16:45) levofloxacin [From Levaquin] Allergy (Verified 03/16/18 16:45) Sulfa (Sulfonamide Antibiotics) [SULFA] Allergy (Verified 03/16/18 16:45) - Review of Systems ROS: No change since H&P - Vital Signs and I&O's Vital Signs: Temperature 98.6 F Pulse Rate 107 Respiratory Rate 35 Blood Pressure [Left Arm] 165/77 Blood Pressure [Right Arm] 144/95 Blood Pressure 166/98 O2 Sat by Pulse Oximetry 100 Intake and Output: Intake & Output 08/21/20 08/22/20 08/23/20 08/24/20 11:59 11:59 11:59 11:59 Intake Total 1384 / 1384 2110 / 2110 3644 / 3644 Output Total 475 / 475 1525 / 1525 1375 / 1375 Balance 909 / 909 585 / 585 2269 / 2269 - Physical Exam Oriented: Normal Eyes: Normal Ear: Normal Nose: Normal Throat: Normal Respiratory: Generalized, Diminished Cardiovascular: Irregular : Normal Auscultation: Bowel Sounds: Normal Palpation: Normal Tenderness: Normal Skin: Normal Musculoskeletal: Normal Psychiatric: Normal Mood Description: Calm Affect: Normal Speech Pattern: Clear, Appropriate - Laboratory and Diagnostics Result Diagrams: 08/23/20 04:13 08/23/20 04:13 Labs: 08/19/20 11:47 Blood Blood Culture - Preliminary 08/19/20 11:40 Blood Blood Culture - Preliminary Laboratory WBC 7.5 X10^3/uL (3.6-10.0) 08/23/20 04:13 RBC 3.38 X10^6/uL (3.5-5.4) L 08/23/20 04:13 Hgb 9.0 g/dL (12.0-16.0) L 08/23/20 04:13 Hct 27.4 % (36.0-47.0) L 08/23/20 04:13 MCV 81.1 fL (80.0-100.0) 08/23/20 04:13 MCH 26.5 pg (27.0-34.0) L 08/23/20 04:13 MCHC 32.6 g/dL (33.0-35.0) L 08/23/20 04:13 RDW 16.4 % (11.6-16.5) 08/23/20 04:13 Plt Count 273 X10^3/uL (150.0-450.0) 08/23/20 04:13 MPV 9.6 fL (7.4-11.0) 08/23/20 04:13 Neut % (Auto) 79.1 % (42.0-75.0) H 08/23/20 04:13 Lymph % (Auto) 10.6 % (21.0-51.0) L 08/23/20 04:13 [place] % (Auto) 7.9 % (0.0-13.0) 08/23/20 04:13 Eos % (Auto) 1.7 % (0.9-2.9) 08/23/20 04:13 Baso % (Auto) 0.7 % (0.2-1.0) 08/23/20 04:13 Neut # (Auto) 5.9 x10^3/uL (2.2-4.8) H 08/23/20 04:13 Lymph # (Auto) 0.8 X10^3/uL (1.3-2.9) L 08/23/20 04:13 [place] # (Auto) 0.6 x10^3/uL (0.3-0.8) 08/23/20 04:13 Eos # (Auto) 0.1 x10^3/uL (0.0-0.2) 08/23/20 04:13 Baso # (Auto) 0.1 X10^3/uL (0.0-0.1) 08/23/20 04:13 Absolute Nucleated RBC 0.1 /100WBC 08/23/20 04:13 D-Dimer 1.17 ug/ml (0.0-0.57) H* 08/19/20 09:15 Sample Site Rbra 08/19/20 08:42 ABG pH 7.470 (7.35-7.45) H 08/19/20 08:42 ABG pCO2 48.0 mmHg (35.0-45.0) H 08/19/20 08:42 ABG pO2 112.0 mmHg (80.0-100.0) H 08/19/20 08:42 ABG HCO3 34.9 mmol/L (22-26) H* 08/19/20 08:42 ABG O2 Saturation 99.0 % (90-100) 08/19/20 08:42 ABG Base Excess 9.8 mmol/L (-2.0-2.0) H 08/19/20 08:42 Cole Test Na 08/19/20 08:42 A-a Gradient 28.0 mmHg 08/19/20 08:42 FiO2 28.0 08/19/20 08:42 Blood Gas Comments Pt gustavo well eb 08/19/20 08:42 Sodium 135 mmol/L (136-145) L 08/23/20 04:13 Corrected Sodium 136 mmol/L (136-145) 08/23/20 04:13 Potassium 3.9 mmol/L (3.5-5.1) 08/23/20 04:13 Chloride 97 mmol/L (98-107) L 08/23/20 04:13 Carbon Dioxide 33.3 mmol/L (21-32) H 08/23/20 04:13 BUN 18 mg/dL (7-18) 08/23/20 04:13 Creatinine 0.72 mg/dL (0.55-1.02) 08/23/20 04:13 Est GFR (MDRD) Af Amer > 60 (>60) 08/23/20 04:13 Est GFR (MDRD) Non-Af > 60 (>60) 08/23/20 04:13 Glucose 133 mg/dL (65-99) H 08/23/20 04:13 Calcium 8.4 mg/dL (8.5-10.1) L 08/23/20 04:13 Corrected Calcium 9.4 mg/dL (8.5-10.1) 08/23/20 04:13 Total Bilirubin 0.80 mg/dL (0.2-1.0) 08/23/20 04:13 AST 23 Units/L (15-37) 08/23/20 04:13 ALT 24 Units/L (12-78) 08/23/20 04:13 Alkaline Phosphatase 97 Units/L (46-116) 08/23/20 04:13 Creatine Kinase 41 Units/L (26-192) 08/19/20 08:42 CK-MB (CK-2) < 1.0 ng/mL (0-4.0) 08/19/20 08:42 CK/CKMB % Calc 2.4 % (<4) 08/19/20 08:42 Troponin I 0.03 ng/mL (0-1.5) 08/19/20 08:42 Total Protein 7.3 g/dL (6.4-8.2) 08/23/20 04:13 Albumin 2.8 g/dL (3.4-5.0) L 08/23/20 04:13 Globulin 4.5 g/dL (2.5-4.5) 08/23/20 04:13 Albumin/Globulin Ratio 0.6 Ratio (1.1-2.1) L 08/23/20 04:13 TSH 3rd Generation 3.954 uIU/mL (0.358-3.74) H 08/19/20 09:15 Specimen Type Catherized urine 08/22/20 10:41 Urine Color Straw (YELLOW) 08/22/20 10:41 Urine Appearance Slightly hazy (CLEAR) 08/22/20 10:41 Urine pH 6.5 (5.0 - 8.0) 08/22/20 10:41 Ur Specific [place] 1.010 (1.000-1.030) 08/22/20 10:41 Urine Protein 2+ (NEGATIVE) 08/22/20 10:41 Urine Glucose (UA) Negative (NEGATIVE) 08/22/20 10:41 Urine Ketones Negative (NEGATIVE) 08/22/20 10:41 Urine Occult Blood 5+ (NEGATIVE) 08/22/20 10:41 Urine Nitrite Negative (NEGATIVE) 08/22/20 10:41 Urine Bilirubin Negative (NEGATIVE) 08/22/20 10:41 Urine Urobilinogen Normal (NORMAL) 08/22/20 10:41 Ur Leukocyte Esterase Negative (NEGATIVE) 08/22/20 10:41 Urine RBC 30-50 /HPF (0-3) A 08/22/20 10:41 Urine WBC 0-2 /HPF (0-5) 08/22/20 10:41 Ur Squamous Epith Cells Rare /HPF (NEGATIVE) 08/22/20 10:41 Urine Bacteria Trace /HPF (NEGATIVE) 08/22/20 10:41 Ur Culture Indicated? No/not indicated 08/22/20 10:41 - Plan (1) Pulmonary edema Status: Acute Qualifiers: Chronicity: acute Qualified Code(s): J81.0 - Acute pulmonary edema Plan: 1/2NS AT 100 ML/HR, DOXYCYCLINE 100MG IV Q12H, ROCEPHIN 1G IV DAILY, XOPENEX NEBS TID, ROBITUSSIN DM 10 ML PO QID, TYLENOL 650MG PO Q4H PRN, COLACE 100MG PO BID, MILD OF MAG 30ML PO BID PRN, KLOR-CON 20MEQ PO BID. HER HOME MEDICATIONS OF ELIQUIS, AMIODARONE, VITAMIN D3, CATAPRES, CARDIZEM, CYMBALTA, SYNTHROID, MAG-OX, MELATONIN, MOBIC, LOPRESSOR, ZOFRAN, AND PROTONIX WERE RESUMED. (2) Pneumonia Status: Acute Qualifiers: Pneumonia type: due to unspecified organism Laterality: bilateral Lung location: unspecified part of lung Qualified Code(s): J18.9 - Pneumonia, unspecified organism (3) Atrial fibrillation/flutter Status: Acute (4) Acute hypokalemia Status: Acute (5) Essential hypertension Status: Chronic
== END 2020-08-23 13:30 | disposition short-term general hospital (02) | DRG 189 ==
LOC: ER 08:10 → ICU 11:48
PROVIDERS: ADMIT Internal Medicine; ATTEND Internal Medicine
DX: E78.2 Mixed hyperlipidemia; J44.9 Chronic obstructive pulmonary disease, unspecified; I48.92 Unspecified atrial flutter; R94.31 Abnormal electrocardiogram [ECG] [EKG]; R06.02 Shortness of breath; J18.8 Other pneumonia, unspecified organism; I87.2 Venous insufficiency (chronic) (peripheral); E03.8 Other specified hypothyroidism; R26.89 Other abnormalities of gait and mobility; I10 Essential (primary) hypertension; J81.0 Acute pulmonary edema; E87.6 Hypokalemia; I50.9 Heart failure, unspecified

== ENCOUNTER 2023-07-20 14:04 | Inpatient (IN) ==
[2023-07-20 19:34] LABS: BASOPHILS # (AUTO) 0.1 X10^3/uL (0.0-0.1); EOSINOPHILS % (AUTO) 0.2 % (0.9-2.9); MEAN CORPUSCULAR HEMOGLOBIN 25.5 pg (27.0-34.0); NEUTROPHILS # (AUTO) 10.6 x10^3/uL (2.2-4.8)
[2023-07-20 19:39] LABS: BASOPHILS % (AUTO) 0.8 % (0.2-1.0); HEMATOCRIT 20.9 % (36.0-47.0); LYMPHOCYTES # (AUTO) 1.2 X10^3/uL (1.3-2.9); MEAN CORPUSCULAR HGB CONC 32.1 g/dL (33.0-35.0); MEAN CORPUSCULAR VOLUME 79.4 fL (80.0-100.0); MEAN PLATELET VOLUME 8.2 fL (7.4-11.0); MONOCYTES % (AUTO) 7.7 % (0.0-13.0); NEUTROPHILS % (AUTO) 82.3 % (42.0-75.0); PLATELET COUNT 377 X10^3/uL (150.0-450.0); RED BLOOD COUNT 2.64 X10^6/uL (3.5-5.4); RED CELL DISTRIBUTION WIDTH 22.2 % (11.6-16.5); WHITE BLOOD COUNT 12.9 X10^3/uL (3.6-10.0)
[2023-07-20 19:46] LABS: HEMOGLOBIN 6.7 g/dL (12.0-16.0)
[2023-07-20 20:17] LABS: ANISOCYTOSIS 2+; HYPOCHROMASIA SLIGHT; MICROCYTOSIS SLIGHT; PLATELET MORPHOLOGY COMMENT NORMAL (NORMAL)
[2023-07-20] MEDS: NS 1,000 ML IV 1,000 ML IV SCH (20:35)
[2023-07-20] MEDS: PROTONIX INJ 40 MG VIAL IVP SCH (20:36)
[2023-07-20 20:54] LABS: BLOOD UREA NITROGEN 32 mg/dL (7-18); CALCIUM 8.2 mg/dL (8.5-10.1); CHLORIDE 99 mmol/L (98-107); CREATININE 1.33 mg/dL (0.55-1.02); GLUCOSE 82 mg/dL (65-99); POTASSIUM 4.4 mmol/L (3.5-5.1); SODIUM 133 mmol/L (136-145); eGFR NON BLACK RACES 41 (>60)
[2023-07-20 21:40] LABS: ALANINE AMINOTRANSFERASE 13 Units/L (12-78); ALBUMIN 1.8 g/dL (3.4-5.0); ALKALINE PHOSPHATASE 72 Units/L (46-116); ASPARTATE AMINO TRANSFERASE 27 Units/L (15-37); TOTAL PROTEIN 6.9 g/dL (6.4-8.2)
[2023-07-20 23:08] VITALS: BMI 24.7
[2023-07-21] MEDS ORDERED: NS 250 ML IV 250 ML IV ONE (00:27)
[2023-07-21] MEDS: NS 250 ML IV 250 ML IV ONE (07:44)
[2023-07-21 08:55] LABS: HEMATOCRIT 34.1 % (36.0-47.0)
--- NOTE | 2023-07-21 10:13 | DR.H&P ---
H&P History & Physical for Day of: H&P Date: 07/21/23 Chief Complaint Chief Complaint: GI bleed Weakness Allergies Allergies Allergy/AdvReac Type Severity Reaction Status Date / Time codeine Allergy Verified 03/28/23 16:42 levofloxacin [From Levaquin] Allergy Verified 03/28/23 16:42 Sulfa (Sulfonamide Allergy Verified 03/28/23 16:42 Antibiotics) [SULFA] History of Present Illness History of Present Illness: Pt is a 82 year old female that presenting to [facility] ER with GI bleed and generalized weakness. She was noted to be anemic on labs. She was transferred to [facility] for further evaluation and treatment. She denies fevers, chills, chest pain, shortness of breath, abdominal pain, nausea/vomiting. Labs/imaging: WBC 12.9, hemoglobin 6.7, platelets 377, sodium 133, potassium 4.4, creatinine 1.33, glucose 82. Patient was admitted for GI bleed and generalized weakness. She is currently n.p.o., will start on IV Protonix 40 mg twice daily, IV fluids normal saline at 100 mL/h, 2 units of packed red blood cells have been transfused. Repeat hemoglobin 11 this morning. General surgery-Dr Wiseman has been consulted and will be scheduled for EGD this morning. Otherwise continue to closely monitor and follow-up labs. Past Medical History Past Medical History: CVA, Depression, Dyslipidemia, GERD, Hypertension and Hypothyroidism Additional Medical History: Diverticulosis, Muscle Weakness, LUPUS, SJOGREN'S SYNDROME, Past Surgical History Surgical History: Bowel Resection, Cholecystectomy, Hysterectomy and Ortho Surgery Additional Surgical History: Heart Cath, Tubal Ligation, Breast Biopsies, Lumpectomy, TAVR Family History Family Medical History: Coronary Artery Disease and Hypertension Social History Does patient currently use any type of tobacco product: No Type of Tobacco Use: None Alcohol Use: None Drug Use: None Medications Home Medications: Home Medications Medication Instructions Recorded Confirmed Type levothyroxine 25 mcg tablet 25 mcg PO DAILYAC 09/19/15 07/20/23 History pantoprazole 40 mg tablet,delayed 40 mg PO DAILY 01/04/19 07/20/23 History release clopidogrel 75 mg tablet 75 mg PO QDAY 03/28/23 07/20/23 History duloxetine 30 mg capsule,delayed 30 mg PO QDAY 03/28/23 07/20/23 History release hydralazine 25 mg tablet 25 mg PO TID 03/28/23 07/20/23 History hydroxychloroquine 200 mg tablet 200 mg PO BID 03/28/23 07/20/23 History olmesartan 20 mg tablet 20 mg PO QDAY 03/28/23 07/20/23 History sotalol 80 mg tablet 80 mg PO BID 03/28/23 07/20/23 History clonidine HCl 0.1 mg tablet 0.1 mg PO TID 07/20/23 07/20/23 History docusate sodium 100 mg capsule 100 mg PO QPM 07/20/23 07/20/23 History (Stool Softener) hydrochlorothiazide 12.5 mg tablet 12.5 mg PO QAM 07/20/23 07/20/23 History megestrol 40 mg tablet 40 mg PO BID 07/20/23 07/20/23 History melatonin 10 mg disintegrating 10 mg PO QPM 07/20/23 07/20/23 History tablet nitrofurantoin 1 cap PO QAM 07/20/23 07/20/23 History monohydrate/macrocrystals 100 mg capsule spironolactone 25 mg tablet 25 mg PO BID 07/20/23 07/20/23 History Labs 07/21/23 08:48 07/20/23 19:15 Labs: Laboratory WBC 12.9 X10^3/uL (3.6-10.0) H 07/20/23 19:15 RBC 2.64 X10^6/uL (3.5-5.4) L 07/20/23 19:15 Hgb 11.0 g/dL (12.0-16.0) L D 07/21/23 08:48 Hct 34.1 % (36.0-47.0) L 07/21/23 08:48 MCV 79.4 fL (80.0-100.0) L 07/20/23 19:15 MCH 25.5 pg (27.0-34.0) L 07/20/23 19:15 MCHC 32.1 g/dL (33.0-35.0) L 07/20/23 19:15 RDW 22.2 % (11.6-16.5) H 07/20/23 19:15 Plt Count 377 X10^3/uL (150.0-450.0) 07/20/23 19:15 Plt Count Comment Adequate (ADEQUATE) 07/20/23 19:15 MPV 8.2 fL (7.4-11.0) 07/20/23 19:15 Neut % (Auto) 82.3 % (42.0-75.0) H 07/20/23 19:15 Lymph % (Auto) 9.0 % (21.0-51.0) L 07/20/23 19:15 [place] % (Auto) 7.7 % (0.0-13.0) 07/20/23 19:15 Eos % (Auto) 0.2 % (0.9-2.9) L 07/20/23 19:15 Baso % (Auto) 0.8 % (0.2-1.0) 07/20/23 19:15 Neut # (Auto) 10.6 x10^3/uL (2.2-4.8) H 07/20/23 19:15 Lymph # (Auto) 1.2 X10^3/uL (1.3-2.9) L 07/20/23 19:15 [place] # (Auto) 1.0 x10^3/uL (0.3-0.8) H 07/20/23 19:15 Eos # (Auto) 0.0 x10^3/uL (0.0-0.2) 07/20/23 19:15 Baso # (Auto) 0.1 X10^3/uL (0.0-0.1) 07/20/23 19:15 Absolute Nucleated RBC 0.1 /100WBC 07/20/23 19:15 Plt Morphology Comment Normal (NORMAL) 07/20/23 19:15 RBC Morphology Abnormal (NORMAL) A 07/20/23 19:15 Hypochromasia Slight A 07/20/23 19:15 Anisocytosis 2+ A 07/20/23 19:15 Microcytosis Slight A 07/20/23 19:15 Sodium 133 mmol/L (136-145) L 07/20/23 19:15 Corrected Sodium TNP 07/20/23 19:15 Potassium 4.4 mmol/L (3.5-5.1) 07/20/23 19:15 Chloride 99 mmol/L (98-107) 07/20/23 19:15 Carbon Dioxide 19.0 mmol/L (21-32) L 07/20/23 19:15 BUN 32 mg/dL (7-18) H 07/20/23 19:15 Creatinine 1.33 mg/dL (0.55-1.02) H 07/20/23 19:15 Est GFR (MDRD) Af Amer 49 (>60) L 07/20/23 19:15 Est GFR (MDRD) Non-Af 41 (>60) L 07/20/23 19:15 Glucose 82 mg/dL (65-99) 07/20/23 19:15 Calcium 8.2 mg/dL (8.5-10.1) L 07/20/23 19:15 Corrected Calcium 10.0 mg/dL (8.5-10.1) 07/20/23 19:15 Total Bilirubin 0.50 mg/dL (0.2-1.0) 07/20/23 19:15 AST 27 Units/L (15-37) 07/20/23 19:15 ALT 13 Units/L (12-78) 07/20/23 19:15 Alkaline Phosphatase 72 Units/L (46-116) 07/20/23 19:15 Total Protein 6.9 g/dL (6.4-8.2) 07/20/23 19:15 Albumin 1.8 g/dL (3.4-5.0) L 07/20/23 19:15 Globulin 5.1 g/dL (2.5-4.5) H 07/20/23 19:15 Albumin/Globulin Ratio 0.4 Ratio (1.1-2.1) L 07/20/23 19:15 Blood Type O NEGATIVE 07/20/23 19:51 Antibody Screen Negative 07/20/23 19:51 Crossmatch See Detail 07/20/23 19:51 Review of Systems Constitutional: Weakness Eyes: No Symptoms Reported ENT: No Symptoms Reported Respiratory: No Symptoms Reported Cardiovascular: No Symptoms Reported Gastrointestinal: No Symptoms Reported Genitourinary: No Symptoms Reported Musculoskeletal: No Symptoms Reported Skin: No Symptoms Reported Neurological: No Symptoms Reported Physical Exam Vital Signs: Vital Signs Temperature 97.6 F Temperature 98.1 F Pulse Rate [Left Radial] 83 Pulse Rate [Left Radial] 74 Respiratory Rate 20 Respiratory Rate 20 Blood Pressure [Left Arm] 172/77 Blood Pressure [Left Arm] 145/78 O2 Sat by Pulse Oximetry 92 O2 Sat by Pulse Oximetry 99 Oriented: Normal Eyes: Normal Ear: Normal Nose: Normal Throat: Normal Respiratory: Clear Throughout Cardiovascular: Normal : Normal Auscultation: Bowel Sounds: Normal Palpation: Normal Tenderness: Normal Skin: Normal Musculoskeletal: Normal Psychiatric: Normal Mood Description: Calm and Appropriate Affect: Normal Speech Pattern: Clear and Appropriate Assessment/Plan (1) GI bleed: Status: Acute (2) Symptomatic anemia: Status: Acute (3) Generalized weakness: Status: Acute Review H&P Reviewed: Yes Patient was examined?: Yes
[2023-07-21] MEDS: DIPRIVAN VIAL 20 ML ONE (11:44)
[2023-07-21] MEDS: CARAFATE PO SCH (14:04)
[2023-07-21] MEDS: ATIVAN TAB 0.5 MG PO PRN (15:14)
[2023-07-21 16:20] VITALS: BP 112/81; PULSE 120; TEMP 97.3; O2SAT 94
--- NOTE | 2023-07-21 16:56 | EKG ---
Test Reason : tachycardia Blood Pressure : */* mmHG Vent. Rate : 117 BPM Atrial Rate : * BPM P-R Int : * ms QRS Dur : 90 ms QT Int : 320 ms P-R-T Axes : * -60 101 degrees QTc Int : 446 ms Poor data quality, interpretation may be adversely affected Sinus tachycardia with first degree AV block Left axis deviation Anteroseptal infarct , age undetermined Abnormal ECG No previous ECGs available Confirmed by Gadiel Bass MD ([id number]) on 07/22/2023 5:14:21 PM Referred By: Confirmed By: Gadiel Bass MD
[2023-07-21] MEDS: LANOXIN INJ IVP ONE (17:30)
[2023-07-21] MEDS: LASIX IVP ONE (17:31)
--- NOTE | 2023-07-21 18:05 | RAD ---
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 No pneumothorax.Osseous structures are unremarkable.IMPRESSION:Airspace disease in the right upper and lower lobes is nonspecific but could represent pneumonia in the proper clinical setting.THIS IS AN ELECTRONICALLY VERIFIED FINAL REPORT07/21/2023 6:01 PM - Electronically signed by Gabino Mccloud MD
[2023-07-21] MEDS: MORPHINE SULFATE INJ 2 MG INJ IVP PRN (18:23)
[2023-07-21 19:05] VITALS: RESP 42
== END 2023-07-21 18:55 | disposition expired | DRG 378 ==
LOC: MED/SURG 14:07 → ICU 07-21 17:20
PROVIDERS: ADMIT Internal Medicine; ATTEND Internal Medicine